=== PATIENT | female | born 1940 | race Caucasian/White ===

== ENCOUNTER 2016-05-16 14:45 | Inpatient (IN) | payer MEDICARE, MEDICAID ==
[~2016-05-16] VITALS: Ht 162.6 cm; Wt 75.0 kg
[~2016-05-16 14:45] MED LIST: CARV6.25 PO; CLOP75 PO; FURO1TAB93 PO; KLOR20TA6 PO; LEVO.125 PO; LORT5TAB PO; PRIN10TA PO; PROT40TA PO
[2016-05-16 14:48] VITALS: BP 150/68; PULSE 74; RESP 16; TEMP 98.6; O2SAT 98
[2016-05-16 14:52] VITALS: BP 150/68; PULSE 73; RESP 14; O2SAT 98
[2016-05-16] MEDS ORDERED: CARV6.252 PO (14:56)
--- NOTE | 2016-05-16 14:56 | PD ---
HPI Chief Complaint: Bleeding Time Seen by Provider: 14:56 Travel History International Travel<30 days: No Contact w/Intl Traveler<30days: No Traveled to known affect area: No History of Present Illness HPI 75-year-old female came to the emergency room brought in by EMS with history of upper and lower GI bleeding. Patient says that this has been going on for past 3 days. She is filling up the toilet bowl with bright red blood and blood clots. She also has been having nosebleeds. Patient has had these symptoms in the past. She is from [place], [place]. Her recently and she started drinking alcohol again. Patient used to be a chronic alcoholic and then stopped drinking for 10 months but started again recently. She drank a liter and a half of Vodka over the past couple days. She is complaining of mid abdominal pain. Today she got scared and called 911 since the bleeding wouldn' t stop. She was awake with GCS of 15 en route. Blood pressure was stable. Patient seems anxious and in moderate distress. No obvious bleeding currently. She appears intoxicate. [facility] Past Medical History Narrative Medical List of her past medical history is reviewed from the nursing note. Arthritis: No Asthma: No Autoimmune Disease: No Blood Disorders: No Anxiety: Yes Depression: No Heart Rhythm Problems: No Cancer: Yes (ABN PAP) Cardiovascular Problems: Yes (5 STENTS) High Cholesterol: Yes Chemotherapy: No Chest Pain: Yes Congestive Heart Failure: No COPD: No Cerebrovascular Accident: No Diabetes: No Diminished Hearing: No Endocrine: No Gastrointestinal Disorders: No GERD: Yes Glaucoma: No Genitourinary: No Headaches: Yes Hepatitis: No Hiatal Hernia: No Heparin Induced Thrombocytopen: No Hypertension: Yes Immune Disorder: No Kidney Stones: No Musculoskeletal: Yes (FACIAL BONES BROKEN) Neurologic: No Psychiatric: No Reproductive: No Respiratory: No Migraines: No Myocardial Infarction: Yes Radiation Therapy: No Renal Failure: No Seizures: No Sickle Cell Disease: No Sleep Apnea: No Thyroid Disease: Yes (HYPOTHYROID) Ulcer: Yes Influenza Vaccination: Yes ?: Not Menopausal: Yes Past Surgical History AICD: No Appendectomy: Yes Arteriovenous Shunt: No Body Medical Devices: STENTS Cardiac Surgery: Yes (2001, 2002, 2004, 1999 STENTS IN [facility] LISTED 4 STENTS) Cholecystectomy: Yes Coronary Stent: Yes (X 5) Genitourinary Surgery: Yes (GALLBLADDER REMOVED 1958) Insulin Pump: No Joint Replacement: No Pacemaker: No Other Surgery: No Social History Alcohol Use: Yes (STATES DRANK 1 PINT LIQUOR TONIGHT) Tobacco Use: Yes (3 CIGS/DAY) Substance Use: No Allergies-Medications (Allergen,Severity, Reaction): Coded Allergies: No Known Allergies (Verified , 05/16/16) Comments List of her allergies reviewed from the nursing note. Reported Meds & Prescriptions Reported Meds & Active Scripts Active Reported Omeprazole 40 Mg Cap 40 Mg PO DAILY Potassium Chloride ER (Potassium Chloride) 20 Meq Tab 20 Meq PO DAILY Lasix (Furosemide) 40 Mg Tab 40 Mg PO DAILY Isosorbide Mononitrate ER (Isosorbide Mononitrate) 60 Mg Tab 60 Mg PO DAILY Lisinopril 20 Mg Tab 20 Mg PO BID Carvedilol 6.25 Mg Tab 6.25 Mg PO BID Narrative Medication List of her home medications reviewed from the nursing note. Review of Systems Except as stated in HPI: all other systems reviewed are Neg Physical Exam Narrative GENERAL: Awake, alert, elderly, anxious, moderate distress, intoxicated SKIN: Warm and dry. Mulliple ecchymoses HEAD: Atraumatic. Normocephalic. EYES: Pupils equal and round. No scleral icterus. No injection or drainage. ENT: No nasal bleeding or discharge. Mucous membranes pink and moist. Dried blood in her right nostril. NECK: Trachea midline. No JVD. CARDIOVASCULAR: Regular rate and rhythm. No murmur appreciated. RESPIRATORY: No accessory muscle use. Clear to auscultation. Breath sounds equal bilaterally. GASTROINTESTINAL: Abdomen soft, non-tender, nondistended. Hepatic and splenic margins not palpable. MUSCULOSKELETAL: No obvious deformities. No clubbing. No cyanosis. No edema. NEUROLOGICAL: Awake and alert. No obvious cranial nerve deficits. Motor grossly within normal limits. Normal speech. PSYCHIATRIC: Anxious and depressed; insight and judgment normal. Data Data Last Documented VS Vital Signs Date Time Temp Pulse Resp B/P Pulse Ox O2 Delivery O2 Flow Rate FiO2 05/16/16 14:52 73 14 150/68 98 Room Air 05/16/16 14:48 98.6 Orders Complete Blood Count With Diff (05/16/16 15:03) Comprehensive Metabolic Panel (05/16/16 15:03) Lipase (05/16/16 15:03) Prothrombin Time / Inr (Pt) (05/16/16 15:03) Act Partial Throm Time (Ptt) (05/16/16 15:03) Alcohol (Ethanol) (05/16/16 15:03) Urinalysis - C+S If Indicated (05/16/16 15:03) Type And Screen (05/16/16 15:03) Ecg Monitoring (05/16/16 15:03) Iv Access Insert/Monitor (05/16/16 15:03) Oximetry (05/16/16 15:03) Sodium Chlor 0.9% 1000 Ml Inj (Ns 1000 M (05/16/16 15:03) Sodium Chloride 0.9% Flush (Ns Flush) (05/16/16 15:15) Pantoprazole Inj (Protonix Inj) (05/16/16 15:15) Pantoprazole Inj (Protonix Inj) (05/16/16 15:15) Consult Gastroenterology (05/16/16 ) Morphine Inj (Morphine Inj) (05/16/16 15:15) Ondansetron Inj (Zofran Inj) (05/16/16 15:15) Blood Product Administration .UPON TRANSFUSION (05/16/16 15:36) Sodium Chlor 0.9% 250 Ml Inj (Ns 250 Ml (05/16/16 15:45) Octreotide Inj (Sandostatin Inj) (05/16/16 15:45) Octreotide Inj (Sandostatin Inj) (05/16/16 17:45) Lorazepam Inj (Ativan Inj) (05/16/16 15:45) Potassium Chlor 10 Meq Premix (Kcl 10 Me (05/16/16 16:00) Potassium Chloride Eff (K-Lyte Cl Eff) (05/16/16 16:00) Ct Abd/Pel W/O Iv Contrast (05/16/16 ) (Hub Use Only)Inp Phy Cons/Ref (05/16/16 ) Admit Order (Ed Use Only) (05/16/16 16:54) Labs Laboratory Tests Test 05/16/16 05/16/16 15:10 16:40 White Blood Count 4.9 TH/MM3 Red Blood Count 3.01 MIL/MM3 Hemoglobin 9.5 GM/DL Hematocrit 28.2 % Mean Corpuscular Volume 93.7 FL Mean Corpuscular Hemoglobin 31.8 PG Mean Corpuscular Hemoglobin 33.9 % Concent Red Cell Distribution Width 17.8 % Platelet Count 71 TH/MM3 Mean Platelet Volume 10.0 FL Neutrophils (%) (Auto) 50.6 % Lymphocytes (%) (Auto) 38.5 % Monocytes (%) (Auto) 8.7 % Eosinophils (%) (Auto) 1.5 % Basophils (%) (Auto) 0.7 % Neutrophils # (Auto) 2.5 TH/MM3 Lymphocytes # (Auto) 1.9 TH/MM3 Monocytes # (Auto) 0.4 TH/MM3 Eosinophils # (Auto) 0.1 TH/MM3 Basophils # (Auto) 0.0 TH/MM3 CBC Comment AUTO DIFF Differential Comment AUTO DIFF CONFIRMED Platelet Estimate LOW Platelet Morphology Comment NORMAL Prothrombin Time 11.9 SEC Prothromb Time International 1.1 RATIO Ratio Activated Partial 27.8 SEC Thromboplast Time Sodium Level 131 MEQ/L Potassium Level 2.9 MEQ/L Chloride Level 100 MEQ/L Carbon Dioxide Level 17.9 MEQ/L Anion Gap 13 MEQ/L Blood Urea Nitrogen 15 MG/DL Creatinine 1.65 MG/DL Estimat Glomerular Filtration 30 ML/MIN Rate Random Glucose 109 MG/DL Calcium Level 8.6 MG/DL Total Bilirubin 0.5 MG/DL Aspartate Amino Transf 108 U/L (AST/SGOT) Alanine Aminotransferase 52 U/L (ALT/SGPT) Alkaline Phosphatase 107 U/L Total Protein 7.4 GM/DL Albumin 3.2 GM/DL Lipase 489 U/L Ethyl Alcohol Level 203 MG/DL Blood Type O POSITIVE Antibody Screen NEGATIVE Blood Bank Comment Urine Color YELLOW Urine Turbidity CLEAR Urine pH 5.0 Urine Specific Warren 1.006 Urine Protein NEG mg/dL Urine Glucose (UA) NEG mg/dL Urine Ketones NEG mg/dL Urine Occult Blood NEG Urine Nitrite NEG Urine Bilirubin NEG Urine Urobilinogen LESS THAN 2.0 MG/DL Urine Leukocyte Esterase NEG Urine RBC LESS THAN 1 /hpf Urine Bacteria RARE /hpf Urine Hyaline Casts 1 /lpf Urine Mucus FEW /lpf Microscopic Urinalysis Comment CULT NOT INDICATED MDM Medical Decision Making Medical Screen Exam Complete: Yes Emergency Medical Condition: Yes Medical Record Reviewed: Yes Differential Diagnosis Upper GI bleed, lower GI bleed, epistaxis, Variceal bleed, peptic ulcer disease , AAA Narrative Course 4:17 PM blood test results are back. Patient has some anemia. Patient's platelet count is 71. Patient was seen by a GI specialist Dr. Malone and he recommended Protonix and Sandostatin drip. Patient will need to be admitted to the ICU due to the pottential of massive upper GI bleed. I suspect variceal bleeding given her alcohol history. He will consult on the patient. Patient's potassium was low which I have ordered replacement. Waiting for a CT abdomen and pelvis to be done and resulted. Awaiting for the glass products inspector to call back for admission. The nurse that me know the patient was getting shaky and probably going into alcohol withdrawal. I ordered 1 mg of IV Ativan. I have ordered a CT scan of her abdomen which is pending. Critical Care Narrative Aggregate critical care time was 60 minutes. Time to perform other separately billable procedures was not included in the critical care time. My time did not include minutes spent treating any other patients simultaneously or on activities that did not directly contribute to the patient's treatment. The services I provided to this patient were to treat and/or prevent clinically significant deterioration that could result in: GI bleed, possible variceal bleed, hyperkalemia,, thrombocytopenia ,chronic alcoholic, Protonix drip, Sandostatin drip I provided critical care services requiring my management, as noted below: Chart data review, documentation time, medication orders and management, vital sign assessments/reviewing monitor data, ordering and reviewing lab tests, ordering and interpreting/reviewing x-rays and diagnostic studies, care of the patient and discussion of the patient with the admitting physicians. Procedures EKG Prior to Arrival: No Physician Communication Physician Communication Dr. Malone Diagnosis Primary Impression: GI bleed Qualified Code: K29.21 - Gastrointestinal hemorrhage associated with alcoholic gastritis Additional Impressions: Chronic alcohol abuse Thrombocytopenia Hypokalemia Renal insufficiency Admitting Information Admitting Physician Requests: eSda Darling MD May 16, 2016 14:56
[2016-05-16] MEDS ORDERED: SODIUM CHLOR 0.9% 1000 ML INJ 1,000 ML IV SCH (15:03)
[2016-05-16] MEDS ORDERED: MORPHINE SULFATE 4 MG/ML INJ IV PUSH ONE (15:15)
[2016-05-16] MEDS ORDERED: PANTOPRAZOLE INJ 80 MG in SODIUM CHLORIDE 0.9% INJ 35 ML IV ONE (15:15)
[2016-05-16] MEDS ORDERED: SODIUM CHLORIDE 0.9% FLUSH 5 ML FLUSH IVF PRN (15:15)
[2016-05-16] MEDS ORDERED: ONDANSETRON HCL 4 MG/2 ML VIAL IV PUSH ONE (15:15)
[2016-05-16 15:26] LABS: AUTOMATED NEUTROPHIL # 2.5 TH/MM3 (1.8-7.7); BASOPHIL % 0.7 % (0.0-2.0); EOSINOPHIL # 0.1 TH/MM3 (0-0.4); EOSINOPHIL % 1.5 % (0.0-4.0); HEMATOCRIT 28.2 % (35.0-46.0); LYMPH % 38.5 % (9.0-44.0); LYMPHOCYTE # 1.9 TH/MM3 (1.0-4.8); MEAN CELL VOLUME 93.7 FL (80.0-100.0); MEAN CORPUSCULAR HEMOGLOBIN 31.8 PG (27.0-34.0); MEAN CORPUSCULAR HGB CONC 33.9 % (32.0-36.0); MONO % 8.7 % (0.0-8.0); NEUT % 50.6 % (16.0-70.0); PLATELET COUNT 71 TH/MM3 (150-450); RED BLOOD COUNT 3.01 MIL/MM3 (4.00-5.30); RED CELL DISTRIBUTION WIDTH 17.8 % (11.6-17.2); WHITE BLOOD COUNT 4.9 TH/MM3 (4.0-11.0)
[2016-05-16 15:37] LABS: APTT (PATIENT) 27.8 SEC (24.3-30.1); INTERNATIONAL NORMALIZED RATIO 1.1 RATIO; PROTHROMBIN TIME - PATIENT 11.9 SEC (9.8-11.6)
[2016-05-16] MEDS ORDERED: SODIUM CHLOR 0.9% 250 ML INJ 250 ML IV ONE (15:45)
[2016-05-16] MEDS ORDERED: OCTREOTIDE INJ 50 MCG/ML AMP IV ONE (15:45)
[2016-05-16] MEDS ORDERED: LORazepam 2 MG/ML VIAL IV PUSH ONE (15:45)
[2016-05-16 15:51] LABS: ALKALINE PHOSPHATASE 107 U/L (45-117); ALT (GPT) 52 U/L (10-53); ANION GAP 13 MEQ/L (5-15); AST (GOT) 108 U/L (15-37); BICARBONATE 17.9 MEQ/L (21.0-32.0); BLOOD UREA NITROGEN 15 MG/DL (7-18); CHLORIDE 100 MEQ/L (98-107); GLOMERULAR FILTRATION RATE 30 ML/MIN (>89); SODIUM (NA) 131 MEQ/L (136-145); TOTAL BILIRUBIN ADULT 0.5 MG/DL (0.2-1.0)
[2016-05-16 15:56] LABS: POTASSIUM 2.9 MEQ/L (3.5-5.1)
[2016-05-16 16:00] LABS: HEMO FLAGS AUTO DIFF
[2016-05-16] MEDS ORDERED: POTASSIUM CHLORIDE 25 MEQ EFFERVESCENT TAB PO ONE (16:00)
[2016-05-16 16:01] LABS: PLATELET ESTIMATE SMEAR LOW (NORMAL); PLATELET MORPHOLOGY NORMAL (NORMAL); SCAN/DIFF AUTO DIFF CONFIRMED
[2016-05-16] MEDS: PANTOPRAZOLE INJ 80 MG in SODIUM CHLORIDE 0.9% INJ 100 ML IV SCH ×2 (16:06→22:31)
--- NOTE | 2016-05-16 16:24 | PD.CONS ---
HPI History of Present Illness This is a 75 year old who came to the ER for evaluation of GI bleeding. She has a long hx of binge drinking and states that she has been drinking more than usual since she lost her 2 months ago. After his , she went to visit friends in [place] and was hospitalized for severe epistaxis, thrombocytopenia , and anemia. She required 3 blood transfusions while she was there. She had nasal packing for her epistaxis, but still had bleeding, and therefore had to have some treatment by ENT to stop the bleeding. She has continued to have some oozing from her nose while she sleeps. She returned back home about 2 weeks ago. She reports that she started passing black tarry stool about 2 days ago. She then started passing some dark red blood and blood clots mixed in her stool yesterday. She does have a hx of fissures and initially thought the bleeding was coming from that, but when she started having large amounts of rectal bleeding filling the toilet with blood clots, she became more concerned. She reports that she is also having bleeding from her nose and from the side of her mouth- only when she sleeps. She did have some hematemesis yesterday- with dark red blood. She complains of a dull ache in her RUQ. This is intermittently without aggravating or alleviating factors. She denies any hx of liver cirrhosis, but states she does have some damage from drinking and was diagnosed with esophageal varices in the past. She last had an EGD/Colonoscopy a year in [place] and she was told that she had varices at that time. Plavix is on her medication list, but states she quit taking this 2 years ago. She takes 4 excedrin a day for generalized pain. (Vicky Rodriguez) PFSH Past Medical History Liver disease Esophageal varices Recent severe epistaxis requiring tx Anemia requiring recent transfusion HTN CAD Hypothyroidism ETOH abuse Past Surgical History EGD/Colonoscopy Recent tx for epistaxis Cholecystectomy Appendectomy (Vicky Rodriguez) Coded Allergies: No Known Allergies (Verified , 05/16/16) Medications Allergies Coded Allergies Type Severity Reaction Last Updated Verified No Known Allergies 05/16/16 Yes Active Scripts Medications Dose Route/Sig Days Date Category Carvedilol 6.25 Mg Tab 6.25 Mg PO BID 05/16/16 Reported Lortab 5/500 (Acetaminophen/Hydrocodone Bitart) 5 Mg/500 Mg Tab 1-2 Tab PO Q6HPRN 03/11/09 Rx Coreg 6.25 mg (Carvedilol) 6.25 Mg Tab 6.25 Mg PO BID 03/11/09 Reported K-Dur (Potassium Chloride) 20 Meq Tabcr 20 Meq PO DAILY 03/11/09 Reported Synthroid (Levothyroxine Sodium) 125 Mcg Tab 125 Mcg PO DAILY 03/11/09 Reported Prinivil (Lisinopril) 10 Mg Tab 10 Mg PO DAILY 03/11/09 Reported Lasix (Furosemide) 40 Mg Tab 40 Mg PO DAILY 03/11/09 Reported Protonix (Pantoprazole Sodium) 40 Mg Tabdr 40 Mg PO DAILY 03/11/09 Reported Family History "Cancer has taken my whole family" Mother from "female cancer" Sister from "female cancer" Another sister from kidney cancer Brother from prostate cancer Another brother from [place] Social History Binge drinker, unable to quantify She smokes 3 cigarettes a day (Vicky Rodriguez) Review of Systems Constitutional: COMPLAINS OF: Fatigue, DENIES: Weight loss, Change in appetite Respiratory: DENIES: Cough, Shortness of breath Cardiovascular: DENIES: Chest pain Gastrointestinal: COMPLAINS OF: Abdominal pain, Black stools, Bloody stools, Nausea, Vomiting, Hematemesis, DENIES: Constipation, Diarrhea, Swelling of Abdomen Musculoskeletal: DENIES: Joint pain Hematologic/lymphatic: COMPLAINS OF: Bruising Neurologic: DENIES: Headache Psychiatric: COMPLAINS OF: Anxiety, Depression, DENIES: Confusion ROS nose bleeds (Vicky Rodriguez) GI Exam Vitals I&O Vital Signs Date Time Temp Pulse Resp B/P Pulse Ox O2 Delivery O2 Flow Rate FiO2 05/16/16 14:52 73 14 150/68 98 Room Air 05/16/16 14:48 98.6 74 16 150/68 98 Laboratory Test 05/16/16 15:10 White Blood Count 4.9 TH/MM3 Red Blood Count 3.01 MIL/MM3 Hemoglobin 9.5 GM/DL Hematocrit 28.2 % Mean Corpuscular Volume 93.7 FL Mean Corpuscular Hemoglobin 31.8 PG Mean Corpuscular Hemoglobin 33.9 % Concent Red Cell Distribution Width 17.8 % Platelet Count 71 TH/MM3 Mean Platelet Volume 10.0 FL Neutrophils (%) (Auto) 50.6 % Lymphocytes (%) (Auto) 38.5 % Monocytes (%) (Auto) 8.7 % Eosinophils (%) (Auto) 1.5 % Basophils (%) (Auto) 0.7 % Neutrophils # (Auto) 2.5 TH/MM3 Lymphocytes # (Auto) 1.9 TH/MM3 Monocytes # (Auto) 0.4 TH/MM3 Eosinophils # (Auto) 0.1 TH/MM3 Basophils # (Auto) 0.0 TH/MM3 CBC Comment AUTO DIFF Differential Comment AUTO DIFF CONFIRMED Platelet Estimate LOW Platelet Morphology Comment NORMAL Prothrombin Time 11.9 SEC Prothromb Time International 1.1 RATIO Ratio Activated Partial 27.8 SEC Thromboplast Time Sodium Level 131 MEQ/L Potassium Level 2.9 MEQ/L Chloride Level 100 MEQ/L Carbon Dioxide Level 17.9 MEQ/L Anion Gap 13 MEQ/L Blood Urea Nitrogen 15 MG/DL Creatinine 1.65 MG/DL Estimat Glomerular Filtration 30 ML/MIN Rate Random Glucose 109 MG/DL Calcium Level 8.6 MG/DL Total Bilirubin 0.5 MG/DL Aspartate Amino Transf 108 U/L (AST/SGOT) Alanine Aminotransferase 52 U/L (ALT/SGPT) Alkaline Phosphatase 107 U/L Total Protein 7.4 GM/DL Albumin 3.2 GM/DL Lipase 489 U/L Ethyl Alcohol Level 203 MG/DL Physical Examination HEENT: Normocephalic; atraumatic; no jaundice. Throat is clear. NECK: Neck is supple, no JVD, no lymphadenopathy. CHEST: CTA CARDIAC: RRR ABDOMEN: Soft, nondistended, mild RUQ tenderness; hepatosplenomegaly; bowel sounds are present in all four quadrants. EXTREMITIES: No clubbing, cyanosis, or edema. SKIN: Normal; no rash; no jaundice. PROSTHETIST: No focal deficits; alert and oriented times three. (Vicky Rodriguez) Assessment and Plan Plan ASSESSMENT: - GIB, Hematemesis yesterday- passing both dark and red blood with clots in her stool. Of note, does have recent hx of severe epistaxis requiring hospitalization, tx, and transfusions about a month ago. Also with hx of esophageal varices and recent binge drinking. Pt is not very forthcoming with the amount and is unable to quantify. Per nurse, she has not had any active hematemesis/nosebleeds since being here, but the ER physician did get maroon bloody stool on rectal exam. (+) Excedrin use. Will schedule for egd in am. - Anemia, acute blood loss. 9.5/28.2. - Thrombocytopenia. 71,000. - Elevated LFTs. Pt reports hx of liver disease and denies cirrhosis, although she was told in the past that she had varices. - Recent hospitalization for severe epistaxis requiring multiple transfusions and tx to stop the bleeding (no response to packing), ENT had to go in to control bleeding. pt reports that she has continued to have nose bleeds since that time - ETOH abuse. States she has a long hx of ETOH abuse, intermittently. Recently been binge drinking since the of her 2 months ago. - CAD, HTN, Hypothyroidism per primary PLAN: - Plan for EGD with possible band ligation - Obtain consents - Clear liquids - NPO - Protonix Gtt - Octreotide Gtt - Monitor HH - Transfuse as necessary - Supportive care - Further recommendations to follow based on results of above - Pt seen and examined by Dr. Malone and myself and this note is written on his behalf (Vicky Rodriguez) Physician Comments Seen and examined With Ms. Jennifer LEE, transfuse as needed. IV protonix/ octreotide. Type and screen for 4 units PRBC. IMC monitoring. NG to L.I.S. EGD/ banding tonite vs. tomorrow morning depending upon clinical course. Thank you ( Yared Malone MD) Vicky Rodriguez May 16, 2016 16:24 Yared Malone MD May 16, 2016 18:32
[2016-05-16 17:01] LABS: BACTERIA, URINE RARE /hpf; BLOOD, URINE NEG (NEG); COMMENT (UR) CULT NOT INDICATED; CULTURE IF INDICATED CULT NOT INDICATED; GLUCOSE,URINE NEG (NEG); HYALINE CAST, URINE 1 /lpf (RARE); KETONE, URINE NEG (NEG); MUCUS URINE FEW /lpf (OCC); NITRITE,URINE NEG (NEG); URINE COLOR YELLOW (YELLW/STRAW)
--- NOTE | 2016-05-16 17:28 | HHI.HP ---
HPI Service Critical Care Medicine Primary Care Physician Unknown Admission Diagnosis GI bleed, thrombocytopenia, hypokalemia, chronic alcoholic Diagnosis: Travel History International Travel<30 Days: No Contact w/Intl Traveler <30 Da: No Traveled to Known Affected Are: No History of Present Illness 75 year old female with long-standing history of binge drinking , who presents today for evaluation of GI bleed. Recently she went to visit friends in [place] and was hospitalized for severe epistaxis, thrombocytopenia, and anemia. She required 3 blood transfusions while she was there. She has returned back home about 2 weeks ago. She started passing black tarry stool about 2 days ago. She then started passing some dark red blood and blood clots mixed in her stool yesterday. She did have some hematemesis yesterday- with dark red blood. She complains of a dull ache in her RUQ. Plavix is on her medication list, but states she quit taking this 2 years ago. She takes 4 Excedrin daily for generalized pain. Review of Systems Constitutional: COMPLAINS OF: Dizziness, DENIES: Diaphoretic episodes, Fatigue , Fever, Weight gain, Weight loss, Chills, Change in appetite, Night Sweats Endocrine: DENIES: Abnorml menstrual pattern, Heat/cold intolerance, Polydipsia , Polyuria, Polyphagia Eyes: DENIES: Blurred vision, Diplopia, Eye inflammation, Eye pain, Vision loss , Photosensitivity, Double Vision Ears, nose, mouth, throat: DENIES: Tinnitus, Hearing loss, Vertigo, Nasal discharge, Oral lesions, Throat pain, Hoarseness, Ear Pain, Running Nose, Epistaxis, Sinus Pain, Toothache, Odynophagia Respiratory: DENIES: Apneas, Cough, Snoring, Wheezing, Hemoptysis, Sputum production, Shortness of breath Cardiovascular: DENIES: Chest pain, Palpitations, Syncope, Dyspnea on Exertion , PND, Lower Extremity Edema, Orthopnea, Claudication Gastrointestinal: COMPLAINS OF: Abdominal pain, Black stools, Bloody stools, DENIES: Constipation, Diarrhea, Nausea, Vomiting, Difficulty Swallowing, Anorexia Genitourinary: DENIES: Abnormal vaginal bleeding, Dysmenorrhea, Dyspareunia, Sexual dysfunction, Urinary frequency, Urinary incontinence, Urgency, Hematuria , Dysuria, Nocturia, Vaginal discharge Musculoskeletal: DENIES: Joint pain, Muscle aches, Stiffness, Joint Swelling, Back pain, Neck pain Integumentary: DENIES: Abnormal pigmentation, Pruritus, Rash, Nail changes, Breast masses, Breast skin changes, Nipple discharge Hematologic/lymphatic: DENIES: Bruising, Lymphadenopathy Immunologic/allergic: DENIES: Eczema, Urticaria Neurologic: DENIES: Abnormal gait, Headache, Localized weakness, Paresthesias, Seizures, Speech Problems, Tremor, Poor Balance Psychiatric: DENIES: Anxiety, Confusion, Mood changes, Depression, Hallucinations, Agitation, Suicidal Ideation, Homicidal Ideation, Delusions Past Family Social History Allergies: Coded Allergies: No Known Allergies (Verified , 05/16/16) Past Medical History PFSH PFSH Past Medical History Liver disease Esophageal varices Recent severe epistaxis requiring tx Anemia requiring recent transfusion HTN CAD Hypothyroidism ETOH abuse Past Surgical History EGD colonoscopy Recent tx for epistaxis Cholecystectomy Appendectomy Reported Medications Reported Meds & Active Scripts Active Lortab 5/500 (Acetaminophen/Hydrocodone Bitart) 5 Mg/500 Mg Tab 1-2 Tab PO Q6HPRN Reported Carvedilol 6.25 Mg Tab 6.25 Mg PO BID K-Dur (Potassium Chloride) 20 Meq Tabcr 20 Meq PO DAILY Synthroid (Levothyroxine Sodium) 125 Mcg Tab 125 Mcg PO DAILY Plavix (Clopidogrel Bisulfate) 75 Mg Tab 75 Mg PO DAILY Prinivil (Lisinopril) 10 Mg Tab 10 Mg PO DAILY Lasix (Furosemide) 40 Mg Tab 40 Mg PO DAILY Protonix (Pantoprazole Sodium) 40 Mg Tabdr 40 Mg PO DAILY Active Ordered Medications Current Medications Medications (Trade) Dose Ordered Sig/Ebonie Route PRN Reason Start Time Stop Time Status Last Admin Dose Admin IV Flush 2 ml 2 ml UNSCH PRN IVF FLUSH AFTER USING IV ACCESS 05/16/16 15:15 Pantoprazole Sodium 80 mg/ Sodium Chloride 100 ml @ 10 mls/hr Q10H IV 05/16/16 15:15 05/16/16 16:06 Sodium Chloride 250 ml @ 15 mls/hr ONCE ONCE IV 05/16/16 15:45 05/17/16 08:24 Octreotide Acetate 500 mcg/ Sodium Chloride 500.0 ml @ 50 mls/hr Q10H IV 05/16/16 17:45 Potassium Chloride (KCl 10 Meq Premix Inj) 100 ml @ 100 mls/hr Q1H IV 05/16/16 16:00 05/16/16 18:59 Family History Noncontributory Social History Alcohol ABUSE Physical Exam Vital Signs Vital Signs Date Time Temp Pulse Resp B/P Pulse Ox O2 Delivery O2 Flow Rate FiO2 05/16/16 14:52 73 14 150/68 98 Room Air 05/16/16 14:48 98.6 74 16 150/68 98 Physical Exam GENERAL: Well-nourished, well-developed patient. SKIN: Warm and dry. HEAD: Normocephalic. EYES: No scleral icterus. No injection or drainage. NECK: Supple, trachea midline. No JVD or lymphadenopathy. CARDIOVASCULAR: Regular rate and rhythm without murmurs, gallops, or rubs. RESPIRATORY: Breath sounds equal bilaterally. No accessory muscle use. GASTROINTESTINAL: Abdomen soft, non-tender, nondistended. MUSCULOSKELETAL: No cyanosis, or edema. BACK: Nontender without obvious deformity. No CVA tenderness. Laboratory Laboratory Tests Test 05/16/16 05/16/16 15:10 16:40 White Blood Count 4.9 Red Blood Count 3.01 Hemoglobin 9.5 Hematocrit 28.2 Mean Corpuscular Volume 93.7 Mean Corpuscular Hemoglobin 31.8 Mean Corpuscular Hemoglobin 33.9 Concent Red Cell Distribution Width 17.8 Platelet Count 71 Mean Platelet Volume 10.0 Neutrophils (%) (Auto) 50.6 Lymphocytes (%) (Auto) 38.5 Monocytes (%) (Auto) 8.7 Eosinophils (%) (Auto) 1.5 Basophils (%) (Auto) 0.7 Neutrophils # (Auto) 2.5 Lymphocytes # (Auto) 1.9 Monocytes # (Auto) 0.4 Eosinophils # (Auto) 0.1 Basophils # (Auto) 0.0 CBC Comment AUTO DIFF Differential Comment AUTO DIFF CONFIRMED Platelet Estimate LOW Platelet Morphology Comment NORMAL Prothrombin Time 11.9 Prothromb Time International 1.1 Ratio Activated Partial 27.8 Thromboplast Time Sodium Level 131 Potassium Level 2.9 Chloride Level 100 Carbon Dioxide Level 17.9 Anion Gap 13 Blood Urea Nitrogen 15 Creatinine 1.65 Estimat Glomerular Filtration 30 Rate Random Glucose 109 Calcium Level 8.6 Total Bilirubin 0.5 Aspartate Amino Transf 108 (AST/SGOT) Alanine Aminotransferase 52 (ALT/SGPT) Alkaline Phosphatase 107 Total Protein 7.4 Albumin 3.2 Lipase 489 Ethyl Alcohol Level 203 Blood Type O POSITIVE Antibody Screen NEGATIVE Blood Bank Comment Urine Color YELLOW Urine Turbidity CLEAR Urine pH 5.0 Urine Specific [place] 1.006 Urine Protein NEG Urine Glucose (UA) NEG Urine Ketones NEG Urine Occult Blood NEG Urine Nitrite NEG Urine Bilirubin NEG Urine Urobilinogen LESS THAN 2.0 Urine Leukocyte Esterase NEG Urine RBC LESS THAN 1 Urine Bacteria RARE Urine Hyaline Casts 1 Urine Mucus FEW Microscopic Urinalysis Comment CULT NOT INDICATED Result Diagram: 05/16/16 1510 05/16/16 1510 Assessment and Plan Problem List: (1) Thrombocytopenia ICD Code: D69.6 Status: Acute (2) GI bleed ICD Code: K92.2 Status: Acute (3) Chronic alcohol abuse ICD Code: F10.10 Status: Acute Assessment and Plan GI bleed - Possible portal hypertension - Octreotide drip - Protonix drip - GI consult appreciated Cortical dependence - CIWA protocol - Counseling provided Hypokalemia - I iv fluids with potassium replacement Acute renal failure - Due to volume loss - IV hydration - Monitor I's and O DVT GI prophylaxis - Teds SCDs Protonix drip Critical Care: The total critical care time was 35 minutes. Time to perform other separately billable procedures was not included in the critical care time. Problem Qualifiers (1) GI bleed: Qualified Code: K29.21 - Gastrointestinal hemorrhage associated with alcoholic gastritis Adan Rothman MD May 16, 2016 17:28
[2016-05-16] MEDS: POTASSIUM CHLOR 10 MEQ PREMIX 100 ML IV SCH ×3 (17:30→22:31)
[2016-05-16] MEDS ORDERED: METOCLOPRAMIDE HCL 10 MG/2 ML VIAL IV PRN (17:30)
[2016-05-16] MEDS ORDERED: RESP: ALBUTEROL 2.5 MG/IPRATROPIUM 0.5 MG NEB (PRN) INH (17:30)
[2016-05-16] MEDS ORDERED: ACETAMINOPHEN 325 MG TAB PO PRN (17:30)
[2016-05-16] MEDS ORDERED: MISCELLANEOUS NURSING INFORMATION XX SCH (17:30)
[2016-05-16] MEDS ORDERED: SODIUM CHLORIDE 0.9% FLUSH 5 ML FLUSH IV FLUSH PRN (17:30)
[2016-05-16] MEDS ORDERED: CHLORHEXIDINE GLUCONATE 2 % 1 PACK (2 CLOTHS) TOP PRN (17:30)
--- NOTE | 2016-05-16 17:39 | RADRPT ---
EXAM DATE/TIME: 05/16/2016 17:02 [facility] COMPARISON: No previous studies available for comparison. INDICATIONS : Rectal bleeding and nose bleeds for the past three days,eppigastric pain. ORAL CONTRAST: No oral contrast ingested. RADIATION DOSE: 20.38 CTDIvol (mGy) MEDICAL HISTORY : Cardiovascular disease. Hypertension. Ulcers. SURGICAL HISTORY : Appendectomy. Cholecystectomy.Coronary artery stent. ENCOUNTER: Initial ACUITY: 3 days PAIN SCALE: 8/10 LOCATION: upper quadrant Abdomen TECHNIQUE: Volumetric scanning of the abdomen and pelvis was performed. Using automated exposure control and ad justment of the mA and/or kV according to patient size, radiation dose was kept as low as reasonably achievable to obtain optimal diagnostic quality images. FINDINGS: Examination of the lung bases demonstrates no abnormality. No pleural fluid is identified. No pulmona ry nodules are present. There is a nodular contour to the liver which may reflect cirrhosis. The sple en is normal in size and free of focal defects. The gallbladder is surgically absent. There are findi ngs of acute pancreatitis with extensive fluid and edema involving the anterior pararenal space maxim al involving the pancreatic head no stones are identified. Varices are present in the left upper quad rant. A small hiatal hernia is present. The adrenal glands and kidneys appear normal bilaterally. No hydronephrosis or mass lesions are identified. Ascites is present in the right paracolic gutter. Ther e is small bowel dilatation characteristic of ileus. Examination of the pelvis demonstrates no evidence of free fluid or pelvic mass. No abnormally enlarg ed inguinal or retroperitoneal lymph nodes are present. The bladder is unremarkable. A Holt catheter is present within the bladder which does not allow for evaluation. CONCLUSION: 1. Findings of acute pancreatitis without ductal dilatation. 2. Mild ascites 3. Cirrhosis and portal hypertension Juma Giraldo MD on May 16, 2016 at 17:29 Board Certified Radiologist. This report was verified electronically.
[2016-05-16 17:51] VITALS: BP 114/54; PULSE 76; RESP 16; O2SAT 99
[2016-05-16] MEDS ORDERED: FURO1TAB60 PO (17:58)
[2016-05-16] MEDS ORDERED: POTA-163 PO (17:58)
[2016-05-16] MEDS ORDERED: OMEP40CA2 PO (17:58)
[2016-05-16] MEDS ORDERED: ISOS60TA PO (17:58)
[2016-05-16] MEDS ORDERED: LISI-515 PO (17:58)
[2016-05-16] MEDS: OCTREOTIDE INJ 500 MCG in SODIUM CHLORID 0.9% 500 ML INJ 499.5 ML IV SCH (18:02)
[2016-05-16] MEDS ORDERED: LORazepam 2 MG/ML VIAL IV PUSH PRN ×4 (18:15)
[2016-05-16] MEDS ORDERED: FLUMAZENIL 0.5 MG/5 ML VIAL IV PUSH PRN (18:15)
[2016-05-16] MEDS ORDERED: LORazepam 2 MG TAB PO PRN (18:15)
[2016-05-16 19:49] VITALS: BP 156/72; PULSE 77; RESP 16; TEMP 97.8; O2SAT 100
[2016-05-16 20:00] VITALS: BP 137/62; PULSE 75; RESP 13; TEMP 97.8; O2SAT 100
[2016-05-16] MEDS: SODIUM CHLORIDE 0.9% FLUSH 5 ML FLUSH IV FLUSH SCH (20:12)
[2016-05-16] MEDS: MORPHINE SULFATE 4 MG/ML INJ IV PRN (20:13)
[2016-05-16 21:51] LABS: HEMATOCRIT 30.6 % (35.0-46.0)
[2016-05-16 22:03] LABS: REVIEW FLAG FINAL
[2016-05-16] MEDS: NS + KCL 20 MEQ INJ 1,000 ML IV SCH (22:31)
[2016-05-16] MEDS: ZOLPIDEM TARTRATE 5 MG TAB PO PRN (22:31)
[2016-05-17] VITALS (9 sets, daily range): BP systolic 112–126; BP diastolic 56–64; PULSE 59–72; RESP 18–28; TEMP 97.8–98.5; O2SAT 93–97
[2016-05-17] MEDS: OCTREOTIDE INJ 500 MCG in SODIUM CHLORID 0.9% 500 ML INJ 499.5 ML IV SCH ×2 (00:45→16:42)
[2016-05-17] MEDS: NS + KCL 20 MEQ INJ 1,000 ML IV SCH ×2 (03:52→16:42)
[2016-05-17] MEDS: MORPHINE SULFATE 4 MG/ML INJ IV PRN ×4 (03:52→21:23)
[2016-05-17] MEDS: CHLORHEXIDINE GLUCONATE 2 % 1 PACK (2 CLOTHS) TOP SCH (03:52)
[2016-05-17 04:42] LABS: INTERNATIONAL NORMALIZED RATIO 1.1 RATIO
[2016-05-17 04:52] LABS: BASOPHIL % 0.3 % (0.0-2.0); EOSINOPHIL # 0.1 TH/MM3 (0-0.4); EOSINOPHIL % 2.5 % (0.0-4.0); HEMATOCRIT 29.8 % (35.0-46.0); LYMPH % 23.6 % (9.0-44.0); MEAN CELL VOLUME 95.4 FL (80.0-100.0); MEAN CORPUSCULAR HEMOGLOBIN 32.2 PG (27.0-34.0); MEAN CORPUSCULAR HGB CONC 33.8 % (32.0-36.0); MONO % 6.7 % (0.0-8.0); NEUT % 66.9 % (16.0-70.0); PLATELET COUNT 74 TH/MM3 (150-450); RED BLOOD COUNT 3.12 MIL/MM3 (4.00-5.30); RED CELL DISTRIBUTION WIDTH 18.2 % (11.6-17.2); WHITE BLOOD COUNT 4.4 TH/MM3 (4.0-11.0)
[2016-05-17 05:35] LABS: ALKALINE PHOSPHATASE 104 U/L (45-117); ALT (GPT) 52 U/L (10-53); ANION GAP 10 MEQ/L (5-15); AST (GOT) 127 U/L (15-37); BLOOD UREA NITROGEN 12 MG/DL (7-18); CHLORIDE 109 MEQ/L (98-107); GLOMERULAR FILTRATION RATE 42 ML/MIN (>89); MAGNESIUM 1.7 MG/DL (1.5-2.5); POTASSIUM 4.8 MEQ/L (3.5-5.1); SODIUM (NA) 137 MEQ/L (136-145); TOTAL BILIRUBIN ADULT 0.6 MG/DL (0.2-1.0)
[2016-05-17 06:47] LABS: HEMO FLAGS AUTO DIFF
[2016-05-17 06:48] LABS: PLATELET ESTIMATE SMEAR LOW (NORMAL); PLATELET MORPHOLOGY NORMAL (NORMAL); SCAN/DIFF AUTO DIFF CONFIRMED
[2016-05-17] MEDS: SODIUM CHLORIDE 0.9% FLUSH 5 ML FLUSH IV FLUSH SCH ×2 (09:00→21:22)
[2016-05-17 09:51] LABS: HEMATOCRIT 30.3 % (35.0-46.0); REVIEW FLAG FINAL
[2016-05-17] MEDS: PANTOPRAZOLE INJ 80 MG in SODIUM CHLORIDE 0.9% INJ 100 ML IV SCH ×2 (11:15→21:23)
[2016-05-17] MEDS ORDERED: PROPOFOL 200 MG/20 ML AMP IV ONE (12:36)
[2016-05-17] MEDS ORDERED: fentaNYL CITRATE 250 MCG/5 ML AMP ONE (13:08)
[2016-05-17] MEDS ORDERED: DO NOT ADM ANY ANTICOAGULANT DRUGS XX PRN (13:45)
[2016-05-17] MEDS: LORazepam 2 MG/ML VIAL IV PRN ×2 (16:39→21:24)
--- NOTE | 2016-05-17 17:14 | HHI.CCPN ---
Subjective Remarks/Hospital Course 75 year old female with long-standing history of binge drinking , who presents today for evaluation of GI bleed. Recently she went to visit friends in [place] and was hospitalized for severe epistaxis, thrombocytopenia, and anemia. She required 3 blood transfusions while she was there. She has returned back home about 2 weeks ago. She started passing black tarry stool about 2 days ago. She then started passing some dark red blood and blood clots mixed in her stool yesterday. She did have some hematemesis yesterday- with dark red blood. She complains of a dull ache in her RUQ. Plavix is on her medication list, but states she quit taking this 2 years ago. She takes 4 Excedrin daily for generalized pain. Objective Vital Signs Date Time Temp Pulse Resp B/P Pulse Ox O2 Delivery O2 Flow Rate FiO2 05/17/16 16:00 98.3 59 18 118/59 97 05/17/16 13:30 Nasal Cannula 2 Intake and Output 05/16/16 05/16/16 05/17/16 08:00 16:00 00:00 Intake Total 1191 ml Output Total 825 ml Balance 366 ml Result Diagram: 05/17/16 0900 05/17/16 0320 Objective Remarks GENERAL: Well-nourished, well-developed patient. SKIN: Warm and dry. HEAD: Normocephalic. EYES: No scleral icterus. No injection or drainage. NECK: Supple, trachea midline. No JVD or lymphadenopathy. CARDIOVASCULAR: Regular rate and rhythm without murmurs, gallops, or rubs. RESPIRATORY: Breath sounds equal bilaterally. No accessory muscle use. GASTROINTESTINAL: Abdomen soft, non-tender, nondistended. MUSCULOSKELETAL: No cyanosis, or edema. BACK: Nontender without obvious deformity. No CVA tenderness. A/P Problem List: (1) Thrombocytopenia ICD Code: D69.6 Status: Acute (2) GI bleed ICD Code: K92.2 Status: Acute (3) Chronic alcohol abuse ICD Code: F10.10 Status: Acute Assessment and Plan GI bleed - Possible portal hypertension - Octreotide drip - Protonix drip - Management per GI Alcohol dependence - CIWA protocol - Counseling provided Hypokalemia - Resolved - DC IV fluids Acute renal failure - Due to volume loss - Hydration by mouth - Monitor I's and O DVT GI prophylaxis - Teds SCDs Protonix drip Level 3 Problem Qualifiers (1) GI bleed: Qualified Code: K29.21 - Gastrointestinal hemorrhage associated with alcoholic gastritis Adan Rothman MD May 17, 2016 17:14
[2016-05-18] VITALS (13 sets, daily range): BP systolic 119–152; BP diastolic 58–66; PULSE 62–74; RESP 20–28; TEMP 98.6–99.6; O2SAT 89–97
[2016-05-18] MEDS: OCTREOTIDE INJ 500 MCG in SODIUM CHLORID 0.9% 500 ML INJ 499.5 ML IV SCH ×2 (01:01→12:45)
[2016-05-18] MEDS: CHLORHEXIDINE GLUCONATE 2 % 1 PACK (2 CLOTHS) TOP SCH (02:17)
[2016-05-18] MEDS: NS + KCL 20 MEQ INJ 1,000 ML IV SCH ×2 (03:47→08:13)
[2016-05-18] MEDS: MORPHINE SULFATE 4 MG/ML INJ IV PRN ×4 (03:48→20:46)
[2016-05-18] MEDS: PANTOPRAZOLE INJ 80 MG in SODIUM CHLORIDE 0.9% INJ 100 ML IV SCH (06:01)
[2016-05-18] MEDS: SODIUM CHLORIDE 0.9% FLUSH 5 ML FLUSH IV FLUSH SCH ×2 (08:13→20:24)
[2016-05-18] MEDS: LORazepam 1 MG TAB PO PRN ×2 (08:22→12:50)
--- NOTE | 2016-05-18 10:37 | HHI.PR ---
Subjective Remarks Follow-up GI bleed/hematemesis/alcohol dependence 05/18/16-patient seen and examined, alert and oriented 3, no report of GI bleeds. Has been panendoscopy yesterday. Objective Vitals Vital Signs Date Time Temp Pulse Resp B/P Pulse Ox O2 Delivery O2 Flow Rate FiO2 05/18/16 06:00 63 05/18/16 04:00 99.6 69 23 119/59 96 05/18/16 04:00 69 05/18/16 02:00 62 05/18/16 00:00 98.6 72 25 136/63 95 05/18/16 00:00 72 05/17/16 21:33 95 Nasal Cannula 2.00 05/17/16 20:00 61 05/17/16 20:00 98.5 61 26 126/64 96 05/17/16 16:00 98.3 59 18 118/59 97 05/17/16 16:00 59 05/17/16 13:30 98.0 58 12 109/53 94 Nasal Cannula 2 05/17/16 13:15 58 12 111/57 94 05/17/16 13:00 78 18 103/51 97 Nasal Cannula 2 05/17/16 12:54 98.0 72 15 109/47 97 Nasal Cannula 2 05/17/16 12:00 98.0 59 18 117/58 97 05/17/16 12:00 59 I/O 05/17/16 05/17/16 05/17/16 05/18/16 05/18/16 05/18/16 07:00 15:00 23:00 07:00 15:00 23:00 Intake Total 1199 ml 1600 ml 1394 ml 1360 ml Output Total 175 ml 350 ml 400 ml 250 ml Balance 1024 ml 1250 ml 994 ml 1110 ml Intake Oral 0 ml 150 ml 360 ml 240 ml IV Total 1199 ml 1150 ml 1034 ml 1120 ml Other 300 ml Output Urine Total 175 ml 350 ml 400 ml 250 ml # Bowel Movements 0 0 0 0 Result Diagram: 05/17/16 0900 05/17/16 0320 Imaging Last Impressions Abdomen/Pelvis CT 05/16/16 0000 Signed Impressions: Service Date/Time: May 17:02 - CONCLUSION: 1. Findings of acute pancreatitis without ductal dilatation. 2. Mild ascites 3. Cirrhosis and portal hypertension Juma Giraldo MD Objective Remarks GENERAL: NAD SKIN: Warm and dry. HEAD: Normocephalic. EYES: No scleral icterus. No injection or drainage. NECK: Supple, trachea midline. No JVD or lymphadenopathy. CARDIOVASCULAR: Regular rate and rhythm without murmurs, gallops, or rubs. RESPIRATORY: Breath sounds equal bilaterally. No accessory muscle use. GASTROINTESTINAL: Abdomen soft, non-tender, nondistended. MUSCULOSKELETAL: No cyanosis, or edema. BACK: Nontender without obvious deformity. No CVA tenderness. A/P Problem List: (1) GI bleed ICD Code: K92.2 Status: Acute (2) Chronic alcohol abuse ICD Code: F10.10 Status: Acute (3) Renal insufficiency ICD Code: N28.9 Status: Resolved (4) Thrombocytopenia ICD Code: D69.6 Status: Acute (5) Hypokalemia ICD Code: E87.6 Status: Acute (6) Chronic diastolic (congestive) heart failure ICD Code: I50.32 Status: Acute (7) Benign hypertension ICD Code: I10 Status: Acute Assessment and Plan 75-year-old female with GI bleed/hematemesis:likely 2/2 portal hypertension. Status post panendoscopy without any active bleed. Appreciate input from GI. Currently on octreotide and Protonix drip. Continue Alcohol dependence: Advised to quit, continue with CIWA protocol. Rally pack. Hyperammonemia: Check ammonia and treat accordingly Hypokalemia: Resolved. Acute renal failure: Resolved. History of chronic diastolic CHF: Resume Lasix Hypertension: Currently soft BP therefore will hold on resuming lisinopril and Coreg. DVT GI prophylaxis - Teds SCDs Protonix drip Transfer to [facility] Problem Qualifiers (1) GI bleed: Qualified Code: K29.21 - Gastrointestinal hemorrhage associated with alcoholic gastritis Chito Robles MD May 18, 2016 10:37
--- NOTE | 2016-05-18 13:43 | HHI.GIFU ---
Subjective Remarks Resting in bed. No active bleeding. No further nose bleeds. Still having abdominal pain. Nausea, without vomiting. (Vicky Rodriguez) Objective Vitals I&O Vital Signs Date Time Temp Pulse Resp B/P Pulse Ox O2 Delivery O2 Flow Rate FiO2 05/18/16 08:28 16 05/18/16 08:00 62 05/18/16 08:00 99.1 62 28 124/58 94 05/18/16 07:34 97 Nasal Cannula 2.00 05/18/16 06:00 63 05/18/16 04:00 99.6 69 23 119/59 96 05/18/16 04:00 69 05/18/16 02:00 62 05/18/16 00:00 98.6 72 25 136/63 95 05/18/16 00:00 72 05/17/16 21:33 95 Nasal Cannula 2.00 05/17/16 20:00 61 05/17/16 20:00 98.5 61 26 126/64 96 05/17/16 16:00 98.3 59 18 118/59 97 05/17/16 16:00 59 I/O 05/17/16 05/17/16 05/17/16 05/18/16 05/18/16 05/18/16 07:00 15:00 23:00 07:00 15:00 23:00 Intake Total 1199 ml 1600 ml 1394 ml 1360 ml Output Total 175 ml 350 ml 400 ml 250 ml Balance 1024 ml 1250 ml 994 ml 1110 ml Intake Oral 0 ml 150 ml 360 ml 240 ml IV Total 1199 ml 1150 ml 1034 ml 1120 ml Other 300 ml Output Urine Total 175 ml 350 ml 400 ml 250 ml # Bowel Movements 0 0 0 0 Imaging Last Impressions Abdomen/Pelvis CT 05/16/16 0000 Signed Impressions: Service Date/Time: May 17:02 - CONCLUSION: 1. Findings of acute pancreatitis without ductal dilatation. 2. Mild ascites 3. Cirrhosis and portal hypertension Juma Giraldo MD Physical Exam HEENT: Normocephalic; atraumatic; no jaundice. CHEST: CTA CARDIAC: RRR ABDOMEN: Soft, nondistended, diffuse tenderness; no hepatosplenomegaly; bowel sounds are present in all four quadrants. EXTREMITIES: No clubbing, cyanosis, or edema. SKIN: Normal; no rash; no jaundice. DIVING SUPERVISOR: No focal deficits; alert and oriented times three. (Vicky Rodriguez) Assessment and Plan Plan ASSESSMENT: - GIB, Hematemesis yesterday- passing both dark and red blood with clots in her stool. Of note, does have recent hx of severe epistaxis requiring hospitalization, tx, and transfusions about a month ago. Also with hx of esophageal varices and recent binge drinking. Pt is not very forthcoming with the amount and is unable to quantify. (+) Excedrin use. S/P EGD ()---> esophagitis, gastritis. Pathology pending. - Anemia, acute blood loss. 9.09/01.2. Octreotide, Protonix Gtt - Thrombocytopenia. 74,000. - Elevated LFTs. Pt reports hx of liver disease and denies cirrhosis, although she was told in the past that she had varices- none seen on exam - Acute pancreatitis. Abdomen/Pelvis CT (05/16/16)-----> 1. Findings of acute pancreatitis without ductal dilatation. 2. Mild ascites 3. Cirrhosis and portal hypertension. Lipase on 05/16 489. Full liquids - Recent hospitalization for severe epistaxis requiring multiple transfusions and tx to stop the bleeding (no response to packing), ENT had to go in to control bleeding. pt reports that she has continued to have nose bleeds since that time - ETOH abuse. States she has a long hx of ETOH abuse, intermittently. Recently been binge drinking since the of her 2 months ago. - CAD, HTN, Hypothyroidism per primary PLAN: - Full liquids - Await pathology - Protonix 40mg po daily - D/C Octreotide - D/C Protonix Gtt - CBC, Lipase in am - Monitor HH - Transfuse as necessary - Supportive care - Further recommendations to follow based on results of above - Pt seen and examined by Dr. Malone and myself and this note is written on his behalf (Vicky Rodriguez) Physician Comments Seen and examined with Ms. Rodriguez, No bleeding reported. Dc octreotide. Diet as tolerated.Discussed with nurse at the bedside. (Yared Malone MD) Vicky Rodriguez May 18, 2016 13:43 Yared Malone MD May 18, 2016 13:58
--- NOTE | 2016-05-18 15:54 | EKG ---
Date Performed: 05/17/2016 Time Performed: 13:13:21 PTAGE: 75 years EKG: Sinus rhythm NORMAL ECG PREVIOUS TRACING : 07/19/2007 09.44 Compared to previous tracing, R-wave progression has improv ed. DOCTOR: Luis Yu Interpretating Date/Time 05/18/2016 15:53:46
[2016-05-18] MEDS: ZOLPIDEM TARTRATE 5 MG TAB PO PRN (20:44)
[2016-05-19] VITALS (9 sets, daily range): BP systolic 129–156; BP diastolic 64–81; PULSE 75–81; RESP 16–19; TEMP 95.1–99.3; O2SAT 90–96
[2016-05-19] MEDS: MORPHINE SULFATE 4 MG/ML INJ IV PRN ×4 (00:14→21:21)
[2016-05-19] MEDS: CHLORHEXIDINE GLUCONATE 2 % 1 PACK (2 CLOTHS) TOP SCH (04:00)
[2016-05-19 07:41] LABS: AUTOMATED NEUTROPHIL # 2.4 TH/MM3 (1.8-7.7); BASOPHIL % 1.2 % (0.0-2.0); EOSINOPHIL # 0.1 TH/MM3 (0-0.4); HEMATOCRIT 28.8 % (35.0-46.0); LYMPH % 25.7 % (9.0-44.0); MEAN CELL VOLUME 96.9 FL (80.0-100.0); MEAN CORPUSCULAR HEMOGLOBIN 31.8 PG (27.0-34.0); MEAN CORPUSCULAR HGB CONC 32.8 % (32.0-36.0); MONO % 10.3 % (0.0-8.0); NEUT % 60.8 % (16.0-70.0); PLATELET COUNT 68 TH/MM3 (150-450); RED BLOOD COUNT 2.98 MIL/MM3 (4.00-5.30); RED CELL DISTRIBUTION WIDTH 18.4 % (11.6-17.2); WHITE BLOOD COUNT 3.9 TH/MM3 (4.0-11.0)
[2016-05-19 07:46] LABS: HEMO FLAGS AUTO DIFF
[2016-05-19 07:55] LABS: ALT (GPT) 36 U/L (10-53); ANION GAP 9 MEQ/L (5-15); AST (GOT) 64 U/L (15-37); BICARBONATE 18.4 MEQ/L (21.0-32.0); BLOOD UREA NITROGEN 10 MG/DL (7-18); CHLORIDE 114 MEQ/L (98-107); GLOMERULAR FILTRATION RATE 53 ML/MIN (>89); POTASSIUM 4.5 MEQ/L (3.5-5.1); SODIUM (NA) 141 MEQ/L (136-145)
[2016-05-19 07:58] LABS: ALKALINE PHOSPHATASE 107 U/L (45-117); TOTAL BILIRUBIN ADULT 0.9 MG/DL (0.2-1.0)
--- NOTE | 2016-05-19 09:07 | HHI.PR ---
Subjective Remarks Follow-up GI bleed/hematemesis/alcohol dependence 05/18/16-patient seen and examined, alert and oriented 3, no report of GI bleeds. Has been panendoscopy yesterday. 05/19/16-patient seen and examined, complains of abdominal pain but denies any GI bleeding. Requesting some narcotics. Objective Vitals Vital Signs Date Time Temp Pulse Resp B/P Pulse Ox O2 Delivery O2 Flow Rate FiO2 05/19/16 04:00 97.4 79 17 129/67 94 05/19/16 01:49 78 05/19/16 00:45 98.3 78 19 129/67 94 05/18/16 22:22 26 05/18/16 22:00 74 05/18/16 20:00 98.9 71 22 152/66 91 05/18/16 20:00 71 05/18/16 18:00 71 05/18/16 16:00 99.2 67 20 135/61 89 05/18/16 16:00 67 05/18/16 14:00 69 05/18/16 12:00 64 05/18/16 12:00 99.0 64 24 136/64 94 05/18/16 10:00 63 I/O 05/18/16 05/18/16 05/18/16 05/19/16 05/19/16 05/19/16 07:00 15:00 23:00 07:00 15:00 23:00 Intake Total 1360 ml 1804 ml 885 ml 0 ml Output Total 250 ml 450 ml 600 ml 600 ml Balance 1110 ml 1354 ml 285 ml -600 ml Intake Oral 240 ml 300 ml 100 ml 0 ml IV Total 1120 ml 1504 ml 785 ml Output Urine Total 250 ml 450 ml 600 ml 600 ml # Bowel Movements 0 0 0 Result Diagram: 05/19/1671905/19/16719 Objective Remarks GENERAL: NAD SKIN: Warm and dry. HEAD: Normocephalic. EYES: No scleral icterus. No injection or drainage. NECK: Supple, trachea midline. No JVD or lymphadenopathy. CARDIOVASCULAR: Regular rate and rhythm without murmurs, gallops, or rubs. RESPIRATORY: Breath sounds equal bilaterally. No accessory muscle use. GASTROINTESTINAL: Abdomen soft, non-tender, nondistended. MUSCULOSKELETAL: No cyanosis, or edema. BACK: Nontender without obvious deformity. No CVA tenderness. A/P Problem List: (1) GI bleed ICD Code: K92.2 Status: Acute (2) Chronic alcohol abuse ICD Code: F10.10 Status: Acute (3) Renal insufficiency ICD Code: N28.9 Status: Resolved (4) Thrombocytopenia ICD Code: D69.6 Status: Acute (5) Hypokalemia ICD Code: E87.6 Status: Acute (6) Chronic diastolic (congestive) heart failure ICD Code: I50.32 Status: Acute (7) Benign hypertension ICD Code: I10 Status: Acute Assessment and Plan 75-year-old female with GI bleed/hematemesis:likely 2/2 portal hypertension. Status post panendoscopy without any active bleed. Appreciate input from GI. s/p octreotide and Protonix drip, now on Protonix 40 mg daily. Advance diet as tolerated Alcohol dependence: Advised to quit, continue with CIWA protocol. Rally pack. Hyperammonemia: Ammonia of 63, start lactulose 30 mg daily Hypokalemia: Resolved. Acute renal failure: Resolved. History of chronic diastolic CHF: Continue Lasix Hypertension: Currently soft BP therefore will hold on resuming lisinopril and Coreg. DVT GI prophylaxis - Teds SCDs Protonix Problem Qualifiers (1) GI bleed: Qualified Code: K29.21 - Gastrointestinal hemorrhage associated with alcoholic gastritis Cihto Robles MD May 19, 2016 09:07
[2016-05-19 09:26] LABS: PLATELET ESTIMATE SMEAR LOW (NORMAL); PLATELET MORPHOLOGY NORMAL (NORMAL); SCAN/DIFF AUTO DIFF CONFIRMED
[2016-05-19] MEDS: FUROSEMIDE 40 MG TAB PO SCH (09:36)
[2016-05-19] MEDS: SODIUM CHLORIDE 0.9% FLUSH 5 ML FLUSH IV FLUSH SCH ×2 (09:36→20:46)
[2016-05-19] MEDS: ISOSORBIDE MONONITRATE 60 MG TAB PO SCH (09:37)
[2016-05-19] MEDS: POTASSIUM CHLORIDE 20 MEQ CONTROLLED RELEASE TAB PO SCH (09:37)
[2016-05-19] MEDS: PANTOPRAZOLE SOD 40 MG DELAYED RELEASE TAB PO SCH (09:37)
[2016-05-19] MEDS: LACTULOSE SYRUP 20 GM/30 ML CUP PO SCH (09:47)
[2016-05-19] MEDS: ONDANSETRON HCL 4 MG/2 ML VIAL IV PRN (21:28)
[2016-05-20] MEDS: MORPHINE SULFATE 4 MG/ML INJ IV PRN ×5 (00:45→16:08)
[2016-05-20 04:00] VITALS: BP 172/67; PULSE 89; RESP 19; TEMP 98.6; O2SAT 97
[2016-05-20] MEDS: CHLORHEXIDINE GLUCONATE 2 % 1 PACK (2 CLOTHS) TOP SCH (04:00)
[2016-05-20] MEDS: ONDANSETRON HCL 4 MG/2 ML VIAL IV PRN ×2 (04:43→12:26)
[2016-05-20 08:00] VITALS: BP 152/71; PULSE 71; RESP 15; TEMP 98.7; O2SAT 92
[2016-05-20] MEDS: POTASSIUM CHLORIDE 20 MEQ CONTROLLED RELEASE TAB PO SCH (08:52)
[2016-05-20] MEDS: PANTOPRAZOLE SOD 40 MG DELAYED RELEASE TAB PO SCH (08:52)
[2016-05-20] MEDS: SODIUM CHLORIDE 0.9% FLUSH 5 ML FLUSH IV FLUSH SCH (08:52)
[2016-05-20] MEDS: ISOSORBIDE MONONITRATE 60 MG TAB PO SCH (08:52)
[2016-05-20] MEDS: LACTULOSE SYRUP 20 GM/30 ML CUP PO SCH (08:52)
[2016-05-20] MEDS: FUROSEMIDE 40 MG TAB PO SCH (08:52)
--- NOTE | 2016-05-20 10:22 | HHI.PR ---
Subjective Remarks Follow-up GI bleed/hematemesis/alcohol dependence 05/18/16-patient seen and examined, alert and oriented 3, no report of GI bleeds. Has been panendoscopy yesterday. 05/19/16-patient seen and examined, complains of abdominal pain but denies any GI bleeding. Requesting some narcotics. 03/19/17-patient seen and examined; afebrile no GI bleed. Complains of abdominal pain otherwise stable. Objective Vitals Vital Signs Date Time Temp Pulse Resp B/P Pulse Ox O2 Delivery O2 Flow Rate FiO2 05/20/16 08:00 98.7 71 15 152/71 92 05/20/16 04:00 98.6 89 19 172/67 97 05/19/16 20:13 75 05/19/16 20:00 97.3 81 19 156/79 93 05/19/16 16:00 99.3 80 16 150/77 92 05/19/16 12:00 95.1 76 16 136/81 96 I/O 05/19/16 05/19/16 05/19/16 05/20/16 05/20/16 05/20/16 07:00 15:00 23:00 07:00 15:00 23:00 Intake Total 0 ml 260 ml 240 ml 240 ml Output Total 600 ml 1800 ml 650 ml 250 ml Balance -600 ml -1540 ml -410 ml -10 ml Intake Oral 0 ml 260 ml 240 ml 240 ml Output Urine Total 600 ml 1800 ml 650 ml 250 ml # Bowel Movements 0 1 0 Result Diagram: 05/19/16 0720 05/19/16 0720 Imaging Last Impressions Abdomen/Pelvis CT 05/16/16 0000 Signed Impressions: Service Date/Time: May 17:02 - CONCLUSION: 1. Findings of acute pancreatitis without ductal dilatation. 2. Mild ascites 3. Cirrhosis and portal hypertension Juma Giraldo MD Objective Remarks GENERAL: NAD SKIN: Warm and dry. HEAD: Normocephalic. EYES: No scleral icterus. No injection or drainage. NECK: Supple, trachea midline. No JVD or lymphadenopathy. CARDIOVASCULAR: Regular rate and rhythm without murmurs, gallops, or rubs. RESPIRATORY: Breath sounds equal bilaterally. No accessory muscle use. GASTROINTESTINAL: Abdomen soft, non-tender, nondistended. MUSCULOSKELETAL: No cyanosis, or edema. BACK: Nontender without obvious deformity. No CVA tenderness. A/P Problem List: (1) GI bleed ICD Code: K92.2 Status: Acute (2) Chronic alcohol abuse ICD Code: F10.10 Status: Acute (3) Renal insufficiency ICD Code: N28.9 Status: Resolved (4) Thrombocytopenia ICD Code: D69.6 Status: Acute (5) Hypokalemia ICD Code: E87.6 Status: Acute (6) Chronic diastolic (congestive) heart failure ICD Code: I50.32 Status: Acute (7) Benign hypertension ICD Code: I10 Status: Acute Assessment and Plan 75-year-old female with GI bleed/hematemesis:likely 2/2 portal hypertension. Status post panendoscopy without any active bleed. Appreciate input from GI. s/p octreotide and Protonix drip, now on Protonix 40 mg daily. Advance diet as tolerated Alcohol dependence: Advised to quit, continue with CIWA protocol. Rally pack. Hyperammonemia: Ammonia of 63, start lactulose 30 mg daily Hypokalemia: Resolved. Acute renal failure: Resolved. History of chronic diastolic CHF: Continue Lasix Hypertension: Currently soft BP therefore will hold on resuming lisinopril and Coreg. DVT GI prophylaxis - Teds SCDs Protonix Problem Qualifiers (1) GI bleed: Qualified Code: K29.21 - Gastrointestinal hemorrhage associated with alcoholic gastritis Chito Robles MD May 20, 2016 10:22
[2016-05-20] MEDS ORDERED: LACT10SO PO (10:24)
[2016-05-20] MEDS ORDERED: THIA100T PO (10:27)
--- NOTE | 2016-05-20 10:29 | HHI.DS ---
Discharge Summary Admission Date May 16, 2016 at 16:56 Discharge Date: May 20, 2016 Admitting Diagnosis GI bleed, thrombocytopenia, hypokalemia, chronic alcoholic (1) GI bleed ICD Code: K92.2 (2) Chronic alcohol abuse ICD Code: F10.10 (3) Renal insufficiency ICD Code: N28.9 (4) Thrombocytopenia ICD Code: D69.6 (5) Hypokalemia ICD Code: E87.6 (6) Chronic diastolic (congestive) heart failure ICD Code: I50.32 (7) Benign hypertension ICD Code: I10 Procedures Panendoscopy Brief History - From Admission 75 year old female with long-standing history of binge drinking , who presents today for evaluation of GI bleed. Recently she went to visit friends in [place] and was hospitalized for severe epistaxis, thrombocytopenia, and anemia. She required 3 blood transfusions while she was there. She has returned back home about 2 weeks ago. She started passing black tarry stool about 2 days ago. She then started passing some dark red blood and blood clots mixed in her stool yesterday. She did have some hematemesis yesterday- with dark red blood. She complains of a dull ache in her RUQ. Plavix is on her medication list, but states she quit taking this 2 years ago. She takes 4 Excedrin daily for generalized pain. CBC/BMP: 05/19/16 0720 05/19/16 0720 Significant Findings Laboratory Tests Test 05/19/16 05/20/16 07:20 06:20 White Blood Count 3.9 TH/MM3 (4.0-11.0) Red Blood Count 2.98 MIL/MM3 (4.00-5.30) Hemoglobin 9.5 GM/DL (11.6-15.3) Hematocrit 28.8 % (35.0-46.0) Red Cell Distribution Width 18.4 % (11.6-17.2) Platelet Count 68 TH/MM3 (150-450) Monocytes (%) (Auto) 10.3 % (0.0-8.0) Platelet Estimate LOW (NORMAL) Chloride Level 114 MEQ/L (98-107) Carbon Dioxide Level 18.4 MEQ/L (21.0-32.0) Creatinine 1.02 MG/DL (0.50-1.00) Estimat Glomerular Filtration 53 ML/MIN (>89) Rate Random Glucose 107 MG/DL (74-106) Calcium Level 8.0 MG/DL (8.5-10.1) Aspartate Amino Transf 64 U/L (15-37) (AST/SGOT) Ammonia 62 MCMOL/L 50 MCMOL/L (11-32) (11-32) Albumin 2.6 GM/DL (3.4-5.0) Imaging Last Impressions Abdomen/Pelvis CT 05/16/16 0000 Signed Impressions: Service Date/Time: May 17:02 - CONCLUSION: 1. Findings of acute pancreatitis without ductal dilatation. 2. Mild ascites 3. Cirrhosis and portal hypertension Juma Giraldo MD PE at Discharge GENERAL: NAD SKIN: Warm and dry. HEAD: Normocephalic. EYES: No scleral icterus. No injection or drainage. NECK: Supple, trachea midline. No JVD or lymphadenopathy. CARDIOVASCULAR: Regular rate and rhythm without murmurs, gallops, or rubs. RESPIRATORY: Breath sounds equal bilaterally. No accessory muscle use. GASTROINTESTINAL: Abdomen soft, non-tender, nondistended. MUSCULOSKELETAL: No cyanosis, or edema. BACK: Nontender without obvious deformity. No CVA tenderness. Hospital Course Patient was admitted secondary to upper GI bleed for which she was started on octreotide and Protonix drip with consultation to gastroenterology, and she underwent panendoscopy. She was subsequently switched to by mouth Protonix and her diet was advanced. She was started on CIWA protocol. Patient was also treated for hyperammonemia with daily lactulose 30 mg with monitoring of ammonia. All electrolyte abnormalities were corrected accordingly. Her oral antihypertensive medications were resumed accordingly and vitals were monitored. DVT prophylaxis as well as GI Pradaxa were provided. Pt Condition on Discharge: Stable Discharge Disposition: Discharge to SNF Discharge Time: > 30 minutes Discharge Instructions Follow up Referrals: Gastroenterology PCP Follow-up - 1 Week New Medications: Thiamine (Thiamine) 100 Mg Tab 100 MG PO DAILY Nutritional Supplement #30 Ref 0 TAB Lactulose Liq (Lactulose Liq) 10 Gm/15 Ml Soln 30 ML PO DAILY Alcohol Detox #10 ML Continued Medications: Carvedilol (Carvedilol) 6.25 Mg Tab 6.25 MG PO BID #60 Ref 0 TAB Furosemide (Lasix) 40 Mg Tab 40 MG PO DAILY #30 Ref 0 TAB Isosorbide Mononitrate ER (Isosorbide Mononitrate ER) 60 Mg Tab 60 MG PO DAILY Prevent Chest Pain #30 Ref 0 TAB Lisinopril (Lisinopril) 20 Mg Tab 20 MG PO BID #30 Ref 0 TAB Omeprazole (Omeprazole) 40 Mg Cap 40 MG PO DAILY #30 Ref 0 CAP Potassium Chloride ER (Potassium Chloride ER) 20 Meq Tab 20 MEQ PO DAILY Electrolyte Replacement #30 Ref 0 TAB Chito Robles MD May 20, 2016 10:29
[2016-05-20] MEDS ORDERED: CARVEDILOL 6.25 MG TAB PO SCH (10:30)
[2016-05-20 12:00] VITALS: BP 138/69; PULSE 74; RESP 18; TEMP 96.5; O2SAT 96
[2016-05-20] MEDS ORDERED: HYDR-3533 PO (14:26)
[2016-05-20] MEDS ORDERED: PERI8.6T PO (14:26)
--- NOTE | 2016-05-20 16:51 | HHI.GIFU ---
Subjective Remarks Resting in bed. No n/v. No bleeding. C/O joint pain in her toes in bilateral feet and states she will not be able to walk until she gets her Indocin and allopurinol for her gout. Objective Vitals I&O Vital Signs Date Time Temp Pulse Resp B/P Pulse Ox O2 Delivery O2 Flow Rate FiO2 05/20/16 12:00 96.5 74 18 138/69 96 05/20/16 08:00 98.7 71 15 152/71 92 05/20/16 04:00 98.6 89 19 172/67 97 05/19/16 20:13 75 05/19/16 20:00 97.3 81 19 156/79 93 I/O 05/19/16 05/19/16 05/19/16 05/20/16 05/20/16 05/20/16 07:00 15:00 23:00 07:00 15:00 23:00 Intake Total 0 ml 260 ml 240 ml 240 ml 600 ml Output Total 600 ml 1800 ml 650 ml 250 ml Balance -600 ml -1540 ml -410 ml -10 ml 600 ml Intake Oral 0 ml 260 ml 240 ml 240 ml 600 ml Output Urine Total 600 ml 1800 ml 650 ml 250 ml # Bowel Movements 0 1 0 Laboratory Laboratory Tests Test 05/20/16 06:20 Ammonia 50 Imaging Last Impressions Abdomen/Pelvis CT 05/16/16 0000 Signed Impressions: Service Date/Time: May 17:02 - CONCLUSION: 1. Findings of acute pancreatitis without ductal dilatation. 2. Mild ascites 3. Cirrhosis and portal hypertension Juma Giraldo MD Physical Exam HEENT: Normocephalic; atraumatic; no jaundice. CHEST: CTA CARDIAC: RRR ABDOMEN: Soft, nondistended, diffuse tenderness; no hepatosplenomegaly; bowel sounds are present in all four quadrants. EXTREMITIES: No clubbing, cyanosis, or edema. SKIN: Normal; no rash; no jaundice. ROADSIDE MECHANIC: No focal deficits; alert and oriented times three. Assessment and Plan Plan ASSESSMENT: - GIB, Hematemesis yesterday- passing both dark and red blood with clots in her stool. Of note, does have recent hx of severe epistaxis requiring hospitalization, tx, and transfusions about a month ago. Also with hx of esophageal varices and recent binge drinking. Pt is not very forthcoming with the amount and is unable to quantify. (+) Excedrin use. S/P EGD ()---> esophagitis, gastritis. Pathology reactive/chemical gastropathy in the background of mild chronic gastritis, negative for helicobacter pylori. No further bleeding. HH stable .8. Tolerating diet. PPI. - Anemia, acute blood loss. .2. Protonix. - Thrombocytopenia. 68,000. - Elevated LFTs. Pt reports hx of liver disease and denies cirrhosis, although she was told in the past that she had varices- none seen on exam - Elevated ammonia, but alert and oriented. - Acute pancreatitis. Abdomen/Pelvis CT (05/16/16)-----> 1. Findings of acute pancreatitis without ductal dilatation. 2. Mild ascites 3. Cirrhosis and portal hypertension. Lipase on 05/16 489. EMILY - Recent hospitalization for severe epistaxis requiring multiple transfusions and tx to stop the bleeding (no response to packing), ENT had to go in to control bleeding. pt reports that she has continued to have nose bleeds since that time - ETOH abuse. States she has a long hx of ETOH abuse, intermittently. Recently been binge drinking since the of her 2 months ago. - CAD, HTN, Hypothyroidism, Gout per primary PLAN: - Low fat diet - Protonix 40mg po daily - No ETOH - FU IRAIDA 2 weeks - Pt seen and examined by Dr. Deras and myself and this note is written on her behalf Vicky Rodriguez May 20, 2016 16:51
[2016-05-20] MEDS ORDERED: LISINOPRIL 20 MG TAB PO SCH (21:00)
== END 2016-05-20 17:12 | DRG 377 ==
LOC: NEPE 14:45 → NEDA 16:56 → HIMW 19:30 → HOCA 05-18 23:40
PROVIDERS: ADMIT Hospitalist; ATTEND Hospitalist
PROC: 0DB68ZX Excision of Stomach, Via Natural or Artificial Opening Endoscopic, Diagnostic (ICD-10-PCS; principal; 2016-05-17 11:50)
DX: K29.21 Alcoholic gastritis with bleeding (principal); K85.90 Acute pancreatitis without necrosis or infection, unspecified; N17.9 Acute kidney failure, unspecified; I50.32 Chronic diastolic (congestive) heart failure; K76.6 Portal hypertension; D62 Acute posthemorrhagic anemia; R18.8 Other ascites; F10.239 Alcohol dependence with withdrawal, unspecified; D69.6 Thrombocytopenia, unspecified; E87.6 Hypokalemia; I25.10 Atherosclerotic heart disease of native coronary artery without angina pectoris; I10 Essential (primary) hypertension; E03.9 Hypothyroidism, unspecified; F41.9 Anxiety disorder, unspecified; E78.00 Pure hypercholesterolemia, unspecified; I25.2 Old myocardial infarction; K21.0 Gastro-esophageal reflux disease with esophagitis; K74.60 Unspecified cirrhosis of liver; K31.9 Disease of stomach and duodenum, unspecified; M10.9 Gout, unspecified; F17.210 Nicotine dependence, cigarettes, uncomplicated; Y90.7 Blood alcohol level of 200-239 mg/100 ml; Z95.5 Presence of coronary angioplasty implant and graft
CPT/HCPCS: 74176; 80053; 80320; 81001; 82140; 83690; 83735; 84100; 85014; 85018; 85025; 85610; 85730; 86850; 86900; 86901; 87641; 88305; 88312; 93005; 96365; 96366; 96375; C9113; J2060; J2270; J2354; J2405; J3010; J3480; J7030; J7040

== ENCOUNTER 2016-11-12 18:45 | Inpatient (IN) | payer MEDICARE ==
[2016-11-12] VITALS (10 sets, daily range): BP systolic 137–182; BP diastolic 68–97; PULSE 60–86; RESP 12–20; TEMP 97.3–97.8; O2SAT 93–99
[~2016-11-12] VITALS: Ht 162.6 cm; Wt 64.4 kg
[~2016-11-12 18:45] MED LIST changes: +BACT800T5 PO; +CARV3.125 PO; -CARV6.25 PO; +CITA10TA4 PO; -CLOP75 PO; +FURO1TAB60 PO; -FURO1TAB93 PO; +ISOS60TA PO; -KLOR20TA6 PO; +LACT10SO PO; -LEVO.125 PO; +LEVO75TA3 PO; +LISI10TA3 PO; -LORT5TAB PO; +OMEP20TA PO; +PERI8.6T PO; +POTA-163 PO; -PRIN10TA PO; -PROT40TA PO; +WALKER WHEELS/F1 MIS
[2016-11-12] MEDS ORDERED: IOHEXOL 350 MG/ML 100 ML BTL (for Cath Lab) OTHER ONE (19:00)
--- NOTE | 2016-11-12 19:31 | PD ---
Physical Exam Time Seen by Provider: 19:30 Narrative 76y/o female who was just discharged here a few hours ago and sent to [facility] c/o chest pain. Vital signs reviewed. Seen at triage desk. Awaiting bed placement. Data Data Last Documented VS Vital Signs Date Time Temp Pulse Resp B/P Pulse Ox O2 Delivery O2 Flow Rate FiO2 11/12/16 18:47 97.8 86 17 174/81 96 MDM Medical Record Reviewed: Yes Supervised Visit with KATERIN: Brent Card Nov 12, 2016 19:31
[2016-11-12] MEDS ORDERED: SODIUM CHLOR 0.9% 1000 ML INJ 1,000 ML IV ONE (20:08)
[2016-11-12] MEDS ORDERED: ASPIRIN 81 MG CHEW TAB PO STA (20:08)
[2016-11-12] MEDS ORDERED: NITROGLYCERIN 0.4 MG SL 25 TABS/BTL SL STA (20:08)
[2016-11-12] MEDS ORDERED: HEPARIN SODIUM - IV 10,000 UNITS/10 ML VIAL IV STA (20:08)
[2016-11-12] MEDS ORDERED: NITROGLYCERIN-DEXTROSE INJ 250 ML IV SCH (20:15)
[2016-11-12] MEDS ORDERED: SODIUM CHLORIDE 0.9% FLUSH 10 ML FLUSH IVF PRN (20:15)
--- NOTE | 2016-11-12 20:19 | PD ---
HPI Chief Complaint: STEMI Alert Time Seen by Provider: 19:56 Travel History International Travel<30 days: No Contact w/Intl Traveler<30days: No Traveled to known affect area: No History of Present Illness HPI The patient is a 76 year old female who presents to the [facility] emergency department with a history of reportedly developing chest pain approximate 40 minutes prior to arrival. The patient was at the [facility] when this began. She reports that she does have a history of coronary artery disease and has had 5 stents placed previously. She reports that she recently moved to the area from [place] and has not established with a gage maker or primary care physician. The patient reports that the pain as a pressure sensation in the left side of the chest that is 7-1/2-8 out of 10 in severity. The patient reports having associated shortness of breath, nausea without vomiting, and diaphoresis. She denies having any radiation of the pain. The patient was just recently discharged from [facility] after evaluation for psychiatric decompensation. The patient denies any recent fevers, cough, congestion, neck pain, abdominal pain,diarrhea, urinary symptoms , or neurologic symptoms. The patient reports that she did take her usual baby aspirin today. She reports that she was on Plavix in the past, however this was discontinued approximately a year ago. PFSH Past Medical History Narrative Medical The patient's PMH consists of CAD with 5 prior stents, tobacco use, alcohol abuse, liver disease, esophageal varices, HTN, hypothyroid disorder, depression. Arthritis: No Asthma: No Autoimmune Disease: No Blood Disorders: No Anxiety: Yes Depression: Yes Heart Rhythm Problems: No Cancer: No (ABN PAP) Cardiovascular Problems: Yes (5 stents) High Cholesterol: Yes Chemotherapy: No Chest Pain: Yes Congestive Heart Failure: No Cirrhosis: Yes COPD: No Cerebrovascular Accident: No Diabetes: No Diminished Hearing: No Endocrine: No Gastrointestinal Disorders: No GERD: Yes Glaucoma: No Genitourinary: No Headaches: Yes Hepatitis: No Hiatal Hernia: No Heparin Induced Thrombocytopen: No Hypertension: Yes Immune Disorder: No Kidney Stones: No Musculoskeletal: Yes (FACIAL BONES BROKEN) Neurologic: No Psychiatric: Yes Reproductive: No Respiratory: No Migraines: No Myocardial Infarction: Yes Radiation Therapy: No Renal Failure: No Seizures: No Sickle Cell Disease: No Sleep Apnea: No Thyroid Disease: Yes (HYPOTHYROID) Ulcer: Yes Menopausal: Yes Past Surgical History Narrative Surgical The patient's PSH: EGD, colonoscopy, nemo, appy, cardiac cath with stents. AICD: No Appendectomy: Yes Arteriovenous Shunt: No Body Medical Devices: STENTS Cardiac Surgery: Yes (2001, 2002, 2004, 1999 [facility] L[facility]ED 4 STENTS) Cholecystectomy: Yes Coronary Stent: Yes (X 5) Genitourinary Surgery: Yes (GALLBLADDER REMOVED 1958) Insulin Pump: No Joint Replacement: No Pacemaker: No Other Surgery: No Social History Alcohol Use: Yes (STATES DRANK 1 PINT LIQUOR TONIGHT) Tobacco Use: Yes (1/2 pp/DAY) Substance Use: No Allergies-Medications (Allergen,Severity, Reaction): Coded Allergies: No Known Allergies (Verified , 11/09/16) Reported Meds & Prescriptions Reported Meds & Active Scripts Active Walker with Front Wheels (Device) 1 Mis Mis 1 Ea .ROUTE DIRECTED Bactrim DS (Sulfamethoxazole-Trimethoprim) 800-160 Mg Tab 1 Tab PO BID Levothyroxine (Levothyroxine Sodium) 75 Mcg Tab 75 Mcg PO DAILY Omeprazole 20 Mg Tab 20 Mg PO DAILY Citalopram (Citalopram Hydrobromide) 10 Mg Tab 10 Mg PO DAILY Lisinopril 10 Mg Tab 10 Mg PO BID Coreg (Carvedilol) 3.125 Mg Tab 3.125 Mg PO BID Joleen-Colace (Sennosides-Docusate Sodium) 8.6-50 Mg Tab 1 Tab PO BID PRN Lactulose Liq (Lactulose) 10 Gm/15 Ml Soln 30 Ml PO DAILY Potassium Chloride ER (Potassium Chloride) 20 Meq Tab 20 Meq PO DAILY Lasix (Furosemide) 40 Mg Tab 40 Mg PO DAILY Isosorbide Mononitrate ER (Isosorbide Mononitrate) 60 Mg Tab 60 Mg PO DAILY Review of Systems Except as stated in HPI: all other systems reviewed are Neg General / Constitutional: No: Fever Eyes: No: Visual changes HENT: No: Headaches, Congestion Cardiovascular: Positive: Chest Pain or Discomfort, Diaphoresis, Dyspnea on exertion Respiratory: No: Cough, Shortness of Breath Gastrointestinal: Positive: Nausea, No: Vomiting, Abdominal Pain Genitourinary: No: Dysuria Musculoskeletal: No: Pain Skin: No Rash Neurologic: No: Weakness Psychiatric: No: Depression Endocrine: No: Polydipsia Hematologic/Lymphatic: No: Easy Bruising Physical Exam Narrative General: The patient is a well-developed well-nourished female in no acute distress. Head and Neck exam: Head is normocephalic atraumatic. Eyes: EOMI, pupils are equal round and reactive to light. Nose: Midline septum with pink mucous membranes Mouth: Dentition unremarkable. Moist mucus membranes. Posterior oropharynx is not erythematous. No tonsillar hypertrophy. Uvula midline. Airway patent. Neck: No palpable lymphadenopathy. No nuchal rigidity. No thyromegaly. Cardiovascular: Regular rate and rhythm without murmurs, gallops, or rubs. No pulse deficit to the extremities and simultaneous auscultation and palpation of her radial artery. Lungs: Clear to auscultation bilaterally. No wheezes, rhonchi, or rales. Abdomen: Soft, without tenderness to palpation in all 4 quadrants of the abdomen. No guarding, rebound, or rigidity. Normal bowel sounds are audible. No tenderness on palpation of McBurney's point. Extremities: No clubbing, cyanosis, or edema. 2+ pulses in all 4 extremities. No calf tenderness on palpation Back: No costovertebral angle tenderness to palpation. Neurologic Exam: Grossly nonfocal. Skin Exam: No rash noted. Intact skin that is warm and dry. Data Data Last Documented VS Vital Signs Date Time Temp Pulse Resp B/P Pulse Ox O2 Delivery O2 Flow Rate FiO2 11/12/16 20:05 75 20 174/94 98 Room Air 11/12/16 20:05 2.00 11/12/16 18:47 97.8 Orders Electrocardiogram (11/12/16 ) Troponin I (11/12/16 20:08) Ckmb (Isoenzyme) Profile (11/12/16 20:08) Complete Blood Count With Diff (11/12/16 20:08) I-Stat Profile (11/12/16 20:08) I-Stat Creatinine (11/12/16 20:08) Calcium (11/12/16 20:08) Magnesium (Mg) (11/12/16 20:08) Prothrombin Time / Inr (Pt) (11/12/16 20:08) Act Partial Throm Time (Ptt) (11/12/16 20:08) B-Type Natriuretic Peptide (11/12/16 20:08) Chest, Single Ap (11/12/16 20:08) Electrocardiogram (11/12/16 20:08) Oxygen Administration (11/12/16 20:08) Iv Access Insert/Monitor (11/12/16 20:08) Oximetry (11/12/16 20:08) Sodium Chlor 0.9% 1000 Ml Inj (Ns 1000 M (11/12/16 20:08) Sodium Chloride 0.9% Flush (Ns Flush) (11/12/16 20:15) Nitroglycerin Sl (Nitrostat Sl) (11/12/16 20:08) Nitroglycerin-Dextrose Inj (Nitroglyceri (11/12/16 20:15) Heparin Inj (Heparin Inj) (11/12/16 20:08) Aspirin Chew (Aspirin Chew) (11/12/16 20:08) Cardiac Catheterization (11/12/16 ) Heparin-Ns/Pf Inj (Heparin-Ns/Pf Inj) (11/12/16 20:40) Admit Order (Ed Use Only) (11/12/16 20:40) Midazolam Inj (Versed Inj) (11/12/16 20:41) Fentanyl Inj (Fentanyl Inj) (11/12/16 20:41) Heparin Inj (Heparin Inj) (11/12/16 20:41) Nitroglycerin Inj (Nitroglycerin Inj) (11/12/16 20:41) Labs Laboratory Tests Test 11/12/16 20:06 White Blood Count 4.3 TH/MM3 Red Blood Count 3.56 MIL/MM3 Hemoglobin 11.9 GM/DL Bedside Hemoglobin 12.9 G/DL Hematocrit 35.4 % Bedside Hematocrit 38.0 % Mean Corpuscular Volume 99.6 FL Mean Corpuscular Hemoglobin 33.4 PG Mean Corpuscular Hemoglobin 33.5 % Concent Red Cell Distribution Width 17.8 % Platelet Count 89 TH/MM3 Mean Platelet Volume 8.6 FL Neutrophils (%) (Auto) 70.2 % Lymphocytes (%) (Auto) 21.3 % Monocytes (%) (Auto) 3.6 % Eosinophils (%) (Auto) 4.2 % Basophils (%) (Auto) 0.7 % Neutrophils # (Auto) 3.0 TH/MM3 Lymphocytes # (Auto) 0.9 TH/MM3 Monocytes # (Auto) 0.2 TH/MM3 Eosinophils # (Auto) 0.2 TH/MM3 Basophils # (Auto) 0.0 TH/MM3 CBC Comment AUTO DIFF Prothrombin Time 12.7 SEC Prothromb Time International 1.1 RATIO Ratio Activated Partial 25.7 SEC Thromboplast Time Bedside Sodium 137 MMOL/L Bedside Potassium 3.7 MMOL/L Bedside Chloride 96 MMOL/L Bedside Blood Urea Nitrogen 6 MG/DL Bedside Creatinine 0.9 MG/DL Bedside Glucose 92 MG/DL Calcium Level 8.5 MG/DL Magnesium Level 1.5 MG/DL Total Creatine Kinase 50 U/L Troponin I LESS THAN 0.02 NG/ML B-Type Natriuretic Peptide 1863 PG/ML MDM Medical Decision Making Medical Screen Exam Complete: Yes Emergency Medical Condition: Yes Medical Record Reviewed: Yes Differential Diagnosis Acute coronary syndrome, versus STEMI, versus anxiety disorder, versus acid reflux, versus pneumonia Narrative Course During the course of the patients emergency department visit, the patients history, examination, and differential diagnosis were reviewed with the patient. An ECG was done out in triage that showed ECG shows ST elevation in V1 and V2 with deep inverted T waves, Twaves inverted in I and AVL. Rate 71. 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 A STEMI alert was called. The patient had IV access obtained and blood work sent for analysis. I spoke to the gage maker on-call, Dr. Gunn. The patient was initially provided 283 mg of aspirin by mouth. The patient was given a sublingual nitroglycerin while nitroglycerin drip was prepared for the patient. The patient was given heparin 4000 unit in her weight. The patients laboratory studies were reviewed and remarkable for Istat is remarkable for a NA of 137, K 3.7, BUN 6, hemoglobin 12.9, Cr 0.9. Radiology studies were reviewed and remarkable for a chest x-ray that shows cardiomegaly with minimal bibasilar airspace disease. Dr. Gunn after reviewing the patient's ECG findings did recommended the patient go acutely to the cardiac catheterization lab. I did personally transport the patient to the cardiac catheterization lab and hand over care to Dr. Gunn on his arrival. The patients results were discussed with the patient, including the plan of care. I explained that further testing and/ or monitoring is indicated based on the patients history, examination, and/ or laboratory findings. Therefore, I recommended admission for additional evaluation. The patient expressed understanding and was agreeable with this plan. The patient was admitted to the hospital in guarded condition and sent to a bed under the care of the gage maker, Dr. Gunn. Critical Care Narrative Aggregate critical care time was 33 minutes. Time to perform other separately billable procedures was not included in the critical care time. My time did not include minutes spent treating any other patients simultaneously or on activities that did not directly contribute to the patient's treatment. The services I provided to this patient were to treat and/or prevent clinically significant deterioration that could result in: Cardiac arrhythmia, cardiovascular collapse, respiratory failure I provided critical care services requiring my management, as noted below: Chart data review, documentation time, medication orders and management, vital sign assessments/reviewing monitor data, ordering and reviewing lab tests, ordering and interpreting/reviewing x-rays and diagnostic studies, care of the patient and discussion of the patient with the admitting physicians. Diagnosis Primary Impression: STEMI (ST elevation myocardial infarction) Qualified Code: I21.3 - ST elevation myocardial infarction (STEMI), unspecified artery Admitting Information Admitting Physician Requests: Admit Willa Shelley MD Nov 12, 2016 20:19
[2016-11-12 20:30] LABS: BASOPHIL % 0.7 % (0.0-2.0); EOSINOPHIL # 0.2 TH/MM3 (0-0.4); EOSINOPHIL % 4.2 % (0.0-4.0); HEMATOCRIT 35.4 % (35.0-46.0); I-STAT POTASSIUM 3.7 MMOL/L (3.5-4.9); I-STAT SODIUM 137 MMOL/L (138-146); LYMPH % 21.3 % (9.0-44.0); LYMPHOCYTE # 0.9 TH/MM3 (1.0-4.8); MEAN CELL VOLUME 99.6 FL (80.0-100.0); MEAN CORPUSCULAR HEMOGLOBIN 33.4 PG (27.0-34.0); MEAN CORPUSCULAR HGB CONC 33.5 % (32.0-36.0); MONO % 3.6 % (0.0-8.0); NEUT % 70.2 % (16.0-70.0); PLATELET COUNT 89 TH/MM3 (150-450); RED BLOOD COUNT 3.56 MIL/MM3 (4.00-5.30); RED CELL DISTRIBUTION WIDTH 17.8 % (11.6-17.2); WHITE BLOOD COUNT 4.3 TH/MM3 (4.0-11.0)
[2016-11-12 20:38] LABS: INTERNATIONAL NORMALIZED RATIO 1.1 RATIO; PROTHROMBIN TIME - PATIENT 12.7 SEC (9.8-11.6)
[2016-11-12] MEDS ORDERED: HEPARIN-NS/PF INJ 500 ML ONE (20:40)
[2016-11-12] MEDS ORDERED: NITROGLYCERIN INJ 5 ML ONE (20:41)
[2016-11-12] MEDS ORDERED: HEPARIN SODIUM - IV 10,000 UNITS/10 ML VIAL ONE (20:41)
[2016-11-12] MEDS ORDERED: MIDAZOLAM HCL 2 MG/2 ML VIAL ONE (20:41)
[2016-11-12 20:46] LABS: APTT (PATIENT) 25.7 SEC (24.3-30.1)
[2016-11-12 20:50] LABS: MAGNESIUM 1.5 MG/DL (1.5-2.5)
[2016-11-12 20:51] LABS: CREATINE KINASE 50 U/L (26-192)
[2016-11-12 20:56] LABS: HEMO FLAGS AUTO DIFF
[2016-11-12] MEDS ORDERED: TEMAZEPAM 15 MG CAP PO PRN (21:00)
--- NOTE | 2016-11-12 21:05 | RADRPT ---
EXAM DATE/TIME: 11/12/2016 19:59 [facility] COMPARISON: No previous studies available for comparison. INDICATIONS : Stemi Alert. MEDICAL HISTORY : Cardiovascular disease. Hypertension. Ulcers. SURGICAL HISTORY : Appendectomy. Cholecystectomy.Coronary artery stent. ENCOUNTER: Initial ACUITY: 1 day PAIN SCORE: 4/10 LOCATION: Bilateral chest FINDINGS: A single view of the chest demonstrates cardiomegaly with minimal basal airspace disease, probably at electasis. No significant effusion. No pneumothorax. Tortuous aorta. CONCLUSION: 1. Cardiomegaly with minimal basal airspace disease. Vj Ac MD on November 12, 2016 at 21:02 Board Certified Radiologist. This report was verified electronically.
[2016-11-12] MEDS ORDERED: METOCLOPRAMIDE HCL 10 MG/2 ML VIAL IV PRN (21:15)
[2016-11-12] MEDS ORDERED: LIDOCAINE HCL 1% 50 ML VIAL INFIL PRN (21:15)
[2016-11-12] MEDS ORDERED: ONDANSETRON HCL 4 MG/2 ML VIAL IV PRN (21:15)
[2016-11-12] MEDS ORDERED: ATROPINE SULFATE 1 MG/ML VIAL IV PRN (21:15)
[2016-11-12] MEDS ORDERED: LIDOCAINE 2% JELLY 30 ML TUBE TOP PRN (21:15)
[2016-11-12] MEDS ORDERED: ACETAMINOPHEN 325 MG TAB PO PRN (21:15)
[2016-11-12] MEDS ORDERED: MORPHINE SULFATE 4 MG/ML INJ IV PUSH PRN (21:15)
[2016-11-12] MEDS ORDERED: SODIUM CHLOR 0.9% 250 ML INJ 250 ML IV PRN (21:15)
[2016-11-12] MEDS ORDERED: LORazepam 2 MG/ML VIAL IV PRN (21:15)
[2016-11-12] MEDS ORDERED: MISC INFORMATION XX ONE (21:15)
[2016-11-12] MEDS ORDERED: BACITRACIN OINT 0.9 GM PKT TOP ONE (21:15)
--- NOTE | 2016-11-12 21:19 | CATHPROC ---
[facility] HIS Report Study Information Study Number Admission Scheduled Start Study Start [id number] Nov 12 2016 6:45PM 11/12/2016 Nov 12 2016 8:32PM [place] Service Cardiac Catheterization Admit Source Facility Department Emergency department [facility] - [facility] Physician and Clinical Staff Initial Hayder Medel Hatch SupervisorJose F Avila,JAIME Hatch Supervisor Radhika Ibarra RN Other cathlab, cathlab Recorder Roland Patton RCIS(BS) Scrub Guillermo Banegas RT(R) Procedures Performed Procedure Location (Site) Vessel Name Angiogram LV Asc. Aorta (A) Angiogram LV LV Ventricle Coronary Angiograms LCA Left Coronary Coronary Angiograms RCA Right Coronary Equipment Time Plater Apprentice Description Size Mfg Part Number Used/Scraped TRANSDUCER, TRUWAVE [id number] 20:48 LAND IBARRA * Used W/STOCKCOCK *[id number] *[id number] PIGTAIL ANG. 145 INFINITI [id number] CATHETER *[id number] *[id number] 21:15 DAIG/ST. KI MEDICAL ANGIOSEAL, FR6 VIP FR 6 Used *[id number] 20:48 CARDFREE INDUSTRIES PACK, CCL CUSTOM * Used *[id number] 20:48 [email or web address] SUPPORT, ARTERIAL ADULT [id number] Used [id number] 20:48 CARDFREE PACER PEN, SKIN DUAL W/ RULER * Used *[id number] SHEATH, FR6 RADIAL PRELUDE 20:48 Sensitive Object MEDICAL FR 6 [id number] Used EASE 11CM [id number] 20:51 Sensitive Object MEDICAL SHEATH, FR6.5 PRELUDE 11CM FR 6.5 [id number] Used *[id number] 20:48 Sensitive Object MEDICAL WIRE, EXCHANGE 260CM 3MMJ 260CM Used *[id number] 20:48 NYCOMED OMNIPAQUE, 350 MG, 150ML 150ML [id number] Used 21:02 NYCOMED OMNIPAQUE, 350 MG, 50ML 50ML [id number] Used 21:03 NYCOMED OMNIPAQUE, 350 MG, 50ML 50ML [id number] Used [id number] 20:48 [place] MEDICAL BLANKET,WARM AIR CCL * Used *[id number] Equipment Model, Serial, Lot Number and Expiration Data Description Model Number Serial Number Lot Number Expiration Date SHEATH, FR6.5 PRELUDE 11CM [id number] 09-05-2019 History: Current Medications Medication Dosage/Unit Route Frequency Last Date/Time Taken LISINOPRIL ASA History: Allergies Allergy Reaction No Known Allergies History: Risk Factors Family History of Hypertension Dyslipidemia Previous SC Previous Heart Failure Premature CAD Yes Yes No No No Prior Valve Prior PCI Prior PCIDate Prior CABG Surgery No Yes 04/07/2004 No Cerebrovascular Peripheral Artery Chronic Lung On Dialysis Diabetes Disease Disease Disease No No No No No History: Symptoms/Diagnosis Selection Items Chest pain History: Stress Tests Stress or Imaging Studies Performed No History: Other Disease Selection Items HTN History: SC/CV Data Previous Cath Date 04/07/2004 History: Other Current Smoker No Labs Hgb (g/dl) Hct (%) 11.60-17.00 35.00-51.00 12.9 38 Glucose (mg/dl) BUN (mg/dl) Creatinine (mg/dl) BUN:Creatinine (1:x) 74.00-106.00 7.00-18.00 0.50-1.30 10.00-20.00 92 6 0.9 6.7 Na (meq/l) K (meq/l) Cl (meq/l) 136.00-145.00 3.50-5.10 98.00-107.00 137 3.7 96 CPK-MB (ng/ML) 0.50-3.60 Not Drawn Medication Medication Total Dose (Bolus/Oral) Medication Total Dosage/Unit 1% XYLOCAINE 20 mL FENTANYL 50 mcg VERSED 2 mg Medications (Bolus/Oral) Medication Time Given Dosage/Unit Administered By Reason VERSED 11/12/2016 8:50:05 PM 1 mg Radhika Ibarra 1 mg VERSED given in lab by Radhika Ibarra, RN in Right Forearm via Peripheral IV. Ordered by Hayder Carias. FENTANYL 11/12/2016 8:50:19 PM 25 mcg Radhika Ibarra 25 mcg FENTANYL given in lab by Radhika Ibarra, JAIME in Right Forearm via Peripheral IV. Ordered by Hayder Gunn. 1% XYLOCAINE 11/12/2016 8:51:00 PM 20 mL Hayder Gunn 20 mL 1% XYLOCAINE given in lab by Hayder Gunn in Right Groin via Subcutaneous. VERSED 11/12/2016 9:00:00 PM 1 mg Ibarra, Radhika 1 mg VERSED given in lab by Radhika Ibarra, RN in Right Forearm via Peripheral IV. Ordered by Hayder Carias. FENTANYL 11/12/2016 9:01:02 PM 25 mcg Radhika Ibarra 25 mcg FENTANYL given in lab by Radhika Ibarra RN in Right Forearm via Peripheral IV. Ordered by Hayder Gunn. Initial Case Assessment Cardiovascular HR Rhythm NIBP Chest Pain 80 sinus 181/97 0 Edema Present Skin color Skin None Normal Warm Dry Circulatory - Right Pulses Dorsalis Pedis Femoral Radial 2 2 2 Scale (0,1,2,3,4,d) Scale (0,1,2,3,4,d) Neurological State Oriented to time-place- Alert Moves all extremities person Respiration - General Respiration Rate SpO2 (%) O2 (lpm) (B/min) 15 98 2 Final Case Assessment Cardiovascular HR Rhythm NIBP Chest Pain 77 sinus 150/84 0 Edema Present Skin color Skin None Normal Warm Dry Circulatory - Right Pulses Dorsalis Pedis Femoral Radial 2 2 2 Scale (0,1,2,3,4,d) Scale (0,1,2,3,4,d) Neurological State Oriented to time-place- Alert Moves all extremities person Respiration - General Respiration Rate SpO2 (%) O2 (lpm) (B/min) 16 99 2 Chronological Log Time Study Chronological Log 20:36:01 Patient arrived via Bed. 20:36:02 Patient Name, D.O.B, / Armband Verified By R.N. 20:36:02 Consent signed by the physician and the patient and verified by the [facility] staff. 20:36:02 Pre-op and post- op instructions given; patient acknowledges understanding of instructions. 20:36:03 Verbal Stimulation=2 Physical Stimulation=2 Airway=2 Respiration=2 TOTAL=8. (0=absent, 1=li mited, 2=present) 20:36:04 Presedation assessment performed by [facility] RN. 20:36:04 Allens test performed on the right radial and ulnar artery. 20:36:05 Immediate Presedation assesment performed by physician. 20:36:05 Patient has been NPO for More than 6Hrs. 20:36:06 Skin Breakdown- none per patient 20:36:07 Patient Warmer Placed on the Table. 20:36:07 Disposable Defibrillator Pads Placed On Patient. 20:36:08 Lupillo Prominences Protected 20:36:09 A # 20 IV was noted in the Forearm (right). Grade = 0 20:36:11 History and physical on the chart or being dictated. 20:42:02 MD arrived. Vitals capture started with the following parameters, Patient=Adult, Interval=5 min, Initial Pr revonm=399 mmHg, 20:43:28 Deflation Rate=5 mmHg, Cuff placed on Right Arm 20:44:48 HR=92 bpm, DOHF=351/97 mmhg, SpO2=97.0 %, Resp=11 B/min, Pain=7, Ericka=10, Valdez=2 Assessment: Initial Case, HR=80 BPM, Rhythm=sinus, EOKM=229/97 mmhg, Chest Pain=0, Edema=None, Color=Normal, Skin = Warm, Dry 20:45:22 Right Pulses: Tremaine Ped=2, Femoral=2, Radial=2 Neurological: State=Alert, Ox3, CROSS Respiration: Resp=15 B/min, SpO2=98 %, O2=2 lpm 20:45:23 Right Radial and groin(s) prepped with 2% chlorhexidine, and with a 3 min. waiting time. 20:48:16 Contrast Scanned 20:48:17 Immediate Presedation assesment performed by physician. 20:49:10 HR=74 bpm, HERX=066/89 mmhg, SpO2=99.0 %, Resp=12 B/min, Pain=7, Ericka=10, Valdez=2 20:49:24 Pressure channel 1 zeroed. 20:49:25 Reference ECG taken Time Out. Correct patient, correct procedure,correct physician, ,power injector not loaded with contrast with surgical 20:49:42 team present. Time Out Concurred by MD, individual staff in procedure 20:49:57 Case Start 20:50:05 1 mg VERSED given in lab by Radhika Ibarra, RN in Right Forearm via Peripheral IV. Order ed by Hayder Gunn. 25 mcg FENTANYL given in lab by Radhika Ibarra, RN in Right Forearm via Peripheral IV. Order ed by Luis A 20:50:19 Hayder. 20:51:00 20 mL 1% XYLOCAINE given in lab by Hayder Gunn in Right Groin via Subcutaneous. 20:52:36 Access site was Right Femoral Artery. 20:52:40 A SHEATH, FR6.5 PRELUDE 11CM FR 6.5 was advanced into the Fem Art (right) using the Percuta neous technique. A JR 4.0 INFINITI CATHETER FR 6 was advanced over a wire. OMNIPAQUE, 350 MG, 150ML 150ML was us ed for 20:53:01 injections. Recorded Pressure: LV, HR=63, Condition=Condition 1 20:53:46 (Left Ventricle) LV 175/11/15 Recorded Pressure: LV, Ao, HR=71, Condition=Condition 1 20:53:53 (Left Ventricle) LV 182/8/26, (Aorta) Ao 166/61/109 20:54:11 HR=70 bpm, UEIW=147/83 mmhg, SpO2=98.0 %, Resp=16 B/min, Pain=7, Ericka=10, Valdez=2 20:54:35 The RCA was injected and visualized at various angles. OMNIPAQUE, 350 MG, 150ML 150ML used . After removing the current catheter a XBLAD 3.5 GUIDE CATHETER FR 6 was advanced over a WIRE, E XCHANGE 20:54:42 260CM 3MMJ 260CM. 20:55:44 The LCA was injected and visualized at various angles. OMNIPAQUE, 350 MG, 150ML 150ML used . Recorded Pressure: Ao, HR=74, Condition=Condition 1 20:58:14 (Aorta) Ao 165/75/112 20:59:08 HR=73 bpm, FOFJ=416/80 mmhg, SpO2=98.0 %, Resp=11 B/min, Pain=7, Ericka=10, Valdez=2 After removing the current catheter a PIGTAIL ANG. 145 INFINITI CATHETER FR 6 was advanced over a WIRE, 20:59:13 EXCHANGE 260CM 3MMJ 260CM. 21:00:00 1 mg VERSED given in lab by Radhika Ibarra RN in Right Forearm via Peripheral IV. Order ed by Hayder Gunn. 25 mcg FENTANYL given in lab by Radhika Ibarra, JAIME in Right Forearm via Peripheral IV. Order ed by Luis A 21:01:02 Hayder. 21:02:23 The LV was injected at 10 cc/sec for a total of 30. OMNIPAQUE, 350 MG, 50ML 50ML used. 21:03:08 The Asc. Aorta (A) was injected at 20 cc/sec for a total of 40. OMNIPAQUE, 350 MG, 50ML 50M L used. 21:03:32 Catheter was removed Assessment: Final Case, HR=77 BPM, Rhythm=sinus, IDAO=828/84 mmhg, Chest Pain=0, Edema=None, Color=Normal, Skin = Warm, Dry 21:03:56 Right Pulses: Tremaine Ped=2, Femoral=2, Radial=2 Neurological: State=Alert, Ox3, CROSS Respiration: Resp=16 B/min, SpO2=99 %, O2=2 lpm 21:04:07 HR=77 bpm, JRAJ=402/84 mmhg, SpO2=98.0 %, Resp=20 B/min, Pain=7, Ericka=10, Valdez=2 21:04:33 Catheter(s) removed without difficulty 21:04:42 Activated Clotting Time Drawn 21:04:52 Catheter(s) removed without difficulty 21:04:54 No case complications noted. 21:04:55 Cine recording checked. 21:04:56 Bedside Report will be given. 21:04:58 Contrast Scanned 21:05:11 Verbal Stimulation=2 Physical Stimulation=2 Airway=2 Respiration=2 TOTAL=8. (0=absent, 1=li mited, 2=present) 21:09:06 HR=71 bpm, YEWD=074/80 mmhg, SpO2=98.0 %, Resp=19 B/min, Pain=7, Ericka=10, Valdez=2 21:14:07 HR=73 bpm, HJTA=407/81 mmhg, SpO2=99.0 %, Resp=16 B/min, Pain=7, Ericka=10, Valdez=2 21:14:15 An injection in the Fem Art (right) was made through the SHEATH, FR6.5 PRELUDE 11CM FR 6.5. 21:14:29 ANGIOSEAL, FR6 VIP FR 6 placement in the Fem Art (right) 21:14:37 Case End 21:14:42 Sterile dressing applied to site 21:19:04 Vitals capture stopped. End Study - Contrast Media Used In Study Contrast Total Opened (mL) Total Used (mL) Total Wasted (mL) Omnipaque 100 100 0 End Study - Maximum Contrast Load Max Contrast Load (mL) 344.4 End Study - Radiation Exposure Fluoro Time (minutes) 2.2 End Study - Patient Disposition Complications Transferred To Interventional Outcome No Telemetry Bed No attempt made
[2016-11-12] MEDS ORDERED: cloNIDine HCL 0.2 MG TAB PO PRN (21:30)
[2016-11-12 21:53] LABS: SCAN/DIFF AUTO DIFF CONFIRMED
[2016-11-12 21:54] LABS: PLATELET ESTIMATE SMEAR LOW (NORMAL); PLATELET MORPHOLOGY NORMAL (NORMAL)
[2016-11-12] MEDS: oxyCODONE/ACETAMINOPHEN 10 MG/325 MG TAB PO PRN (22:00)
--- NOTE | 2016-11-12 22:59 | MB ---
cc: ROGER CLEMENTS MD DATE OF CONSULTATION 11/12/[address] [place]. HISTORY OF PRESENT ILLNESS A 76-year-old female who presented to the emergency department with chest pain. Apparently, she was at the [facility] yesterday and was discharged. She has a history of coronary disease with a prior percutaneous intervention. She intracranial cranial pressure was 7-8/10 She came into the emergency department, had ST-elevation early anterior precordial leads with deep T-wave inversions which seem to be new compared her prior electrocardiogram. She had continued ongoing symptoms so [facility]-[place]vation [place] protocol was initiated. PAST MEDICAL HISTORY 1. Coronary disease, 2. Tobacco abuse 3. Alcohol abuse, 4. Liver disease. 5. Esophageal varices 6. Hypertension 7. Hypothyroidism 8. Anxiety/depression 9. EGD and colonoscopy. SOCIAL HISTORY Alcohol usage. She drank a pint of liquor earlier today. half smokes half-a-pack a day. Denies any substance use. ALLERGIES NO KNOWN DRUG ALLERGIES. MEDICATIONS 1. Bactrim 2. Levothyroxine 3. Omeprazole 4. Citalopram 5. Lisinopril 6. Coreg 7. Joleen-Colace 8. Lactulose. 9. Potassium. 10. Lasix, 11. Isosorbide. REVIEW OF SYSTEMS 12 point review of systems was performed, negative unless otherwise noted in history of present illness. PHYSICAL EXAMINATION VITAL SIGNS: Temperature is 97, pulse is 75, blood pressure 174/94 mmHg. GENERAL: Alert and oriented x3 in mild distress. HEENT: Pupils reactive to light and accommodation, extraocular movements are intact. No elevation in jugular venous distension. No thyromegaly, no lymphadenopathy. No carotid bruits. LUNGS: Clear to auscultation bilaterally. CARDIOVASCULAR: Regular rate and rhythm without murmurs, rubs or gallops. ABDOMEN: Nontender, nondistended. Good bowel sounds. No hepatosplenomegaly. EXTREMITIES: No clubbing, cyanosis or edema. Good peripheral pulses. Cranial nerves intact. Motor sensory grossly intact. LABORATORY DATA Pending. ASSESSMENT 1. ST-elevation [place] 2. History of coronary disease. PLAN Risks, benefits and alternatives discussed with the patient. The patient understood, consent to proceed. We will plan to take to the cardiac catheterization lab emergently given EKG changes ongoing symptoms. acute MD STEPHANY Mclaughlin /9:18 PM /10:45 PM
--- NOTE | 2016-11-12 23:15 | MA ---
cc: HAYDER CLEMENTS MD DATE 11/12/[address]-elevation [place]. PROCEDURE PERFORMED 1. Fluoroscopy with interpretation. 2. Coronary angiography. 3. Left heart catheterization. 4. Left ventriculography. 5. Ascending aortography. 6. Coronary angiography. METHOD The risks, benefits and alternatives discussed with the patient. The patient understood and consented to the procedure. PROCEDURE IN DETAIL The patient brought to the catheterization lab and placed on the catheterization table. Right groin prepped and draped in sterile fashion. Right groin was anesthetized with 2% lidocaine. Right common femoral was cannulated and a 6-Estonian 7 centimeter sheath was placed without difficulty. LEFT HEART CATHETERIZATION Intraoperative hemodynamics measured at 182/20 mmHg. LEFT VENTRICULOGRAPHY Left ventriculography performed right anterior oblique view using a 30 cc contrast injection good opacification. Left ventricular ejection fraction visually estimated at 40%. There is regional anterolateral anterior, apical, inferoapical hypokinesis and there is hypercontractile posterior, anterobasal segments. CORONARY ANGIOGRAPHY 1. Left main coronary has minor luminal irregularities. 2. Left anterior descending coronary proximally has minor luminal irregularities. Mid segment has minor luminal irregularities and quite tortuous. Diagonal branch has minor luminal irregularities. 3. There is a stent in the circumflex which is widely patent. The second obtuse marginal has a 50% stenosis present. 4. Right coronary is a dominant vessel giving rise to a posterior descending branch. Right coronary has some minor luminal irregularities. 5. Ascending aortography. Ascending aortography performed in the left anterior oblique using a 30 cc contrast injection. Ascending aorta is mildly dilated with no evidence of dissection. CONCLUSION 1. Takotsubo cardiomyopathy. 2. Mild nonobstructive coronary disease. 3. Mildly dilated ascending aorta. 4. Mildly elevated left-sided filling pressure. PLAN The patient will be monitored closely for any postprocedure complication. Will follow up with a 2-D echocardiogram in addition to optimal medical management. Hopefully discharge in the next 24 to 48 hours. Hayder Clements MD SM/EO /9:14 PM /10:59 PM
[2016-11-13] VITALS (28 sets, daily range): BP systolic 100–159; BP diastolic 47–78; PULSE 51–72; RESP 12–20; TEMP 97.8–99.9; O2SAT 92–94
[2016-11-13] MEDS: oxyCODONE/ACETAMINOPHEN 10 MG/325 MG TAB PO PRN (03:36)
[2016-11-13 05:51] LABS: AUTOMATED NEUTROPHIL # 1.7 TH/MM3 (1.8-7.7); BASOPHIL % 0.8 % (0.0-2.0); EOSINOPHIL # 0.1 TH/MM3 (0-0.4); HEMATOCRIT 26.4 % (35.0-46.0); LYMPH % 25.2 % (9.0-44.0); LYMPHOCYTE # 0.7 TH/MM3 (1.0-4.8); MEAN CORPUSCULAR HGB CONC 34.3 % (32.0-36.0); MONO % 5.2 % (0.0-8.0); NEUT % 64.8 % (16.0-70.0); PLATELET COUNT 61 TH/MM3 (150-450); RED BLOOD COUNT 2.67 MIL/MM3 (4.00-5.30); RED CELL DISTRIBUTION WIDTH 17.9 % (11.6-17.2); WHITE BLOOD COUNT 2.6 TH/MM3 (4.0-11.0)
[2016-11-13 05:58] LABS: HEMO FLAGS DIFF FINAL
[2016-11-13 06:22] LABS: BICARBONATE 28.8 MEQ/L (21.0-32.0); HDL CHOLESTEROL 34.7 MG/DL (40.0-60.0); POTASSIUM 3.1 MEQ/L (3.5-5.1)
--- NOTE | 2016-11-13 08:16 | EKG ---
Date Performed: 11/13/2016 Time Performed: 06:06:14 PTAGE: 76 years EKG: Sinus bradycardia Possible septal infarct - age undetermined Anterior T wave inversions con cerning for ischemia Correlate Clinincally Abnormal ECG PREVIOUS TRACING : 11/12/2016 19.40 DOCTOR: Jorge Friedman Interpretating Date/Time 11/13/2016 08:14:14
--- NOTE | 2016-11-13 08:25 | EKG ---
Date Performed: 11/12/2016 Time Performed: 19:40:56 PTAGE: 76 years EKG: Sinus rhythm SEPTAL MYOCARDIAL INFARCTION ACUTE [place] PREVIOUS TRACING : 11/10/2016 12.49 DOCTOR: Jorge Friedman Interpretating Date/Time 11/13/2016 08:23:45
--- NOTE | 2016-11-13 08:59 | PD.CARD.PN ---
Subjective Subjective Remarks admits to mild upper epigastric discomfort and fatigue. Chest pain resolved. No SOB or palpitations. (Kristin Phillips) Objective Medications Current Medications Medications (Trade) Dose Ordered Sig/Ebonie Route Start Time Stop Time Status Last Admin Sodium Chloride 2 ml 2 ml UNSCH PRN IVF 11/12/16 20:15 (Nitroglycerin-Dextrose Inj) 250 ml @ 0 mls/hr TITRATE IV 11/12/16 20:15 11/12/16 20:18 (Xylocaine 2% Jelly) 1 applic UNSCH PRN TOP 11/12/16 21:15 (Tylenol) 325 mg Q4H PRN PO 11/12/16 21:15 (Percocet 5-325 Mg) 1 tab Q4H PRN PO 11/12/16 21:15 (Percocet 10-325 Mg) 1 tab Q4H PRN PO 11/12/16 21:15 11/13/16 03:36 (Morphine Inj) 2 mg Q30M PRN IV PUSH 11/12/16 21:15 11/12/16 22:00 (Restoril) 15 mg HS PRN PO 11/12/16 21:00 11/12/16 22:05 (Aspirin Chew) 81 mg DAILY PO 11/13/16 09:00 (Ativan Inj) 0.5 mg UNSCH PRN IV 11/12/16 21:15 11/13/16 21:14 Atropine Sulfate 0.5 mg 0.5 mg UNSCH PRN IV 11/12/16 21:15 (NS 250 ml Inj) 250 ml @ 500 mls/hr ONCE PRN IV 11/12/16 21:15 11/13/16 21:14 (Reglan Inj) 10 mg Q4H PRN IV 11/12/16 21:15 (Zofran Inj) 4 mg Q4H PRN IV 11/12/16 21:15 (Xylocaine 1% Inj (50 ml)) 10 ml UNSCH PRN INFIL 11/12/16 21:15 11/13/16 21:14 (Catapres) 0.2 mg Q6H PRN PO 11/12/16 21:30 Vital Signs / I&O Vital Signs Date Time Temp Pulse Resp B/P Pulse Ox O2 Delivery O2 Flow Rate FiO2 11/13/16 06:00 62 11/13/16 05:00 58 11/13/16 04:00 58 11/13/16 03:00 55 11/13/16 03:00 97.8 69 12 122/59 93 11/13/16 02:00 60 11/13/16 01:00 58 11/13/16 00:00 58 11/12/16 23:00 97.3 65 12 137/68 93 11/12/16 23:00 60 11/12/16 22:00 72 11/12/16 21:30 67 11/12/16 21:30 97.8 63 16 148/97 96 11/12/16 20:05 98 Nasal Cannula 2.00 11/12/16 20:05 75 20 174/94 98 Room Air 11/12/16 20:05 98 2.00 11/12/16 18:47 97.8 86 17 174/81 96 I/O 11/12/16 11/12/16 11/12/16 11/13/16 11/13/16 11/13/16 06:59 14:59 22:59 06:59 14:59 22:59 Intake Total 1240 ml Output Total 400 ml Balance 840 ml Intake Oral 240 ml IV Total 1000 ml Output Urine Total 400 ml # Bowel Movements 0 Physical Exam HEAD: Atraumatic. Normocephalic. EYES: Pupils equal and round. No scleral icterus. No injection or drainage. ENT: No nasal bleeding or discharge. Mucous membranes pink and moist. NECK: Trachea midline. No JVD. CARDIOVASCULAR: Regular rate and rhythm. No murmurs RESPIRATORY: No accessory muscle use. Clear to auscultation. Breath sounds equal bilaterally. GASTROINTESTINAL: Abdomen soft, non-tender, nondistended MUSCULOSKELETAL: Extremities without clubbing, cyanosis, or edema. No obvious deformities. NEUROLOGICAL: Awake and alert. No obvious cranial nerve deficits. Normal speech. PSYCHIATRIC: Appropriate mood and affect; insight and judgment normal. Laboratory Laboratory Tests Test 11/12/16 11/13/16 20:06 04:35 White Blood Count 4.3 TH/MM3 2.6 TH/MM3 Red Blood Count 3.56 MIL/MM3 2.67 MIL/MM3 Hemoglobin 11.9 GM/DL 9.1 GM/DL Bedside Hemoglobin 12.9 G/DL Hematocrit 35.4 % 26.4 % Bedside Hematocrit 38.0 % Mean Corpuscular Volume 99.6 FL 99.0 FL Mean Corpuscular Hemoglobin 33.4 PG 34.0 PG Mean Corpuscular Hemoglobin 33.5 % 34.3 % Concent Red Cell Distribution Width 17.8 % 17.9 % Platelet Count 89 TH/MM3 61 TH/MM3 Mean Platelet Volume 8.6 FL 9.4 FL Neutrophils (%) (Auto) 70.2 % 64.8 % Lymphocytes (%) (Auto) 21.3 % 25.2 % Monocytes (%) (Auto) 3.6 % 5.2 % Eosinophils (%) (Auto) 4.2 % 4.0 % Basophils (%) (Auto) 0.7 % 0.8 % Neutrophils # (Auto) 3.0 TH/MM3 1.7 TH/MM3 Lymphocytes # (Auto) 0.9 TH/MM3 0.7 TH/MM3 Monocytes # (Auto) 0.2 TH/MM3 0.1 TH/MM3 Eosinophils # (Auto) 0.2 TH/MM3 0.1 TH/MM3 Basophils # (Auto) 0.0 TH/MM3 0.0 TH/MM3 CBC Comment AUTO DIFF DIFF FINAL Differential Comment AUTO DIFF CONFIRMED Platelet Estimate LOW Platelet Morphology Comment NORMAL Prothrombin Time 12.7 SEC Prothromb Time International 1.1 RATIO Ratio Activated Partial 25.7 SEC Thromboplast Time Bedside Sodium 137 MMOL/L Bedside Potassium 3.7 MMOL/L Bedside Chloride 96 MMOL/L Bedside Blood Urea Nitrogen 6 MG/DL Bedside Creatinine 0.9 MG/DL Bedside Glucose 92 MG/DL Calcium Level 8.5 MG/DL 7.5 MG/DL Magnesium Level 1.5 MG/DL Total Creatine Kinase 50 U/L 27 U/L Troponin I LESS THAN 0.02 NG/ML B-Type Natriuretic Peptide 1863 PG/ML Sodium Level 137 MEQ/L Potassium Level 3.1 MEQ/L Chloride Level 100 MEQ/L Carbon Dioxide Level 28.8 MEQ/L Anion Gap 8 MEQ/L Blood Urea Nitrogen 7 MG/DL Creatinine 0.80 MG/DL Estimat Glomerular Filtration 70 ML/MIN Rate Random Glucose 69 MG/DL Triglycerides Level 81 MG/DL Cholesterol Level 123 MG/DL LDL Cholesterol 72 MG/DL HDL Cholesterol 34.7 MG/DL Cholesterol/HDL Ratio 3.54 RATIO Imaging Last Impressions Chest X-Ray 11/12/162007 Signed Impressions: Service Date/Time: Saturday, November 12, 2016 19:59 - CONCLUSION: 1. Cardiomegaly with minimal basal airspace disease. Vj Ac MD (Kristin Phillips) Assessment and Plan Problem List: (1) STEMI (ST elevation myocardial infarction) Assessment and Plan 76 yo WF with history of CAD and prior stenting presented yesterday with acute chest pain with STEMI, urgent cath showed mild CAD, patent stent and takotsubo cardiomyopathy. +anemia, + thrombocytopenia cardiomyopathy- Takotsubo. cardiac cath shows mild CAD, patent stent. echo pending, vitals stable. cont current medications discharge likely today or tomorrow. (Kristin Phillips) Assessment and Plan med mgt asa statin add low dose acei 2d echo today. monitor salt and weight DC planning FU in OPD for 2d echo in 2 months (Hayder Gunn MD) Problem Qualifiers (1) STEMI (ST elevation myocardial infarction): Qualified Code: I21.3 - ST elevation myocardial infarction (STEMI), unspecified artery Kristin Phillips Nov 13, 2016 08:59 Hayder Gunn MD Nov 13, 2016 09:05
[2016-11-13] MEDS ORDERED: ASPIRIN 81 MG CHEW TAB PO SCH (09:00)
[2016-11-13] MEDS ORDERED: PILL SPLITTER OTHER PRN (09:15)
[2016-11-13] MEDS ORDERED: LISINOPRIL 5 MG TAB PO SCH (09:15)
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
[2016-11-13] MEDS ORDERED: SODIUM CHLORIDE 0.9% FLUSH 10 ML FLUSH IV FLUSH PRN (12:00)
[2016-11-13] MEDS ORDERED: NALOXONE HCL 0.4 MG/ML AMP IV PRN (12:00)
[2016-11-13] MEDS: SODIUM CHLORIDE 0.9% FLUSH 10 ML FLUSH IV FLUSH SCH ×2 (12:00→20:51)
[2016-11-13] MEDS ORDERED: RESP: ALBUTEROL 2.5 MG/IPRATROPIUM 0.5 MG NEB (PRN) NEB (12:00)
[2016-11-13] MEDS ORDERED: FLUMAZENIL 0.5 MG/5 ML VIAL IV PUSH PRN (12:15)
[2016-11-13] MEDS ORDERED: LORazepam 2 MG/ML VIAL IV PUSH PRN ×4 (12:15)
[2016-11-13] MEDS ORDERED: LORazepam 2 MG TAB PO PRN (12:15)
[2016-11-13] MEDS: LACTULOSE SYRUP 20 GM/30 ML CUP PO SCH (12:15)
[2016-11-13] MEDS: cefTRIAXone INJ 1,000 MG in SODIUM CHLORIDE 0.9% INJ 100 ML IV SCH (13:06)
[2016-11-13] MEDS: CITALOPRAM HYDROBROMIDE 20 MG TAB PO SCH (13:06)
[2016-11-13 13:42] LABS: BLOOD, URINE NEG (NEG); COMMENT (UR) CULT NOT INDICATED; CULTURE IF INDICATED CULT NOT INDICATED; GLUCOSE,URINE NEG (NEG); HYALINE CAST, URINE 3 /lpf (RARE); KETONE, URINE TRACE mg/dL (NEG); NITRITE,URINE NEG (NEG); SQUAMOUS EPITHELIAL CELL URINE 1 /hpf (0-5); URINE COLOR YELLOW (YELLW/STRAW)
[2016-11-13] MEDS: LORazepam 1 MG TAB PO PRN ×2 (16:57→22:33)
[2016-11-14] VITALS (31 sets, daily range): BP systolic 119–161; BP diastolic 59–85; PULSE 55–88; RESP 16–20; TEMP 97.5–99.5; O2SAT 92–97
[2016-11-14] MEDS: LORazepam 1 MG TAB PO PRN ×2 (04:27→21:40)
[2016-11-14 06:57] LABS: AUTOMATED NEUTROPHIL # 1.7 TH/MM3 (1.8-7.7); BASOPHIL % 1.2 % (0.0-2.0); EOSINOPHIL # 0.1 TH/MM3 (0-0.4); EOSINOPHIL % 4.4 % (0.0-4.0); HEMATOCRIT 27.3 % (35.0-46.0); LYMPH % 27.5 % (9.0-44.0); LYMPHOCYTE # 0.7 TH/MM3 (1.0-4.8); MEAN CELL VOLUME 99.1 FL (80.0-100.0); MEAN CORPUSCULAR HEMOGLOBIN 34.4 PG (27.0-34.0); MEAN CORPUSCULAR HGB CONC 34.7 % (32.0-36.0); MONO % 5.4 % (0.0-8.0); NEUT % 61.5 % (16.0-70.0); PLATELET COUNT 54 TH/MM3 (150-450); RED BLOOD COUNT 2.76 MIL/MM3 (4.00-5.30); RED CELL DISTRIBUTION WIDTH 17.8 % (11.6-17.2); WHITE BLOOD COUNT 2.7 TH/MM3 (4.0-11.0)
[2016-11-14 07:02] LABS: HEMO FLAGS AUTO DIFF
[2016-11-14 07:18] LABS: BICARBONATE 25.1 MEQ/L (21.0-32.0); POTASSIUM 3.3 MEQ/L (3.5-5.1)
[2016-11-14 07:45] LABS: PLATELET ESTIMATE SMEAR LOW (NORMAL); PLATELET MORPHOLOGY NORMAL (NORMAL)
[2016-11-14 07:46] LABS: SCAN/DIFF AUTO DIFF CONFIRMED
--- NOTE | 2016-11-14 08:12 | PD.CARD.PN ---
Subjective Subjective Remarks Still a little weak. No chest pain. Feels mildly dyspneic Objective Vital Signs / I&O Vital Signs Date Time Temp Pulse Resp B/P Pulse Ox O2 Delivery O2 Flow Rate FiO2 11/14/16 07:00 62 11/14/16 06:00 64 11/14/16 05:00 64 11/14/16 04:00 62 11/14/16 03:58 99.5 65 20 154/62 97 11/14/16 03:00 62 11/14/16 02:00 66 11/14/16 01:00 64 11/14/16 00:00 67 11/14/16 00:00 99.0 62 20 144/75 94 11/13/16 23:00 56 11/13/16 22:00 58 11/13/16 21:00 58 11/13/16 20:00 68 11/13/16 19:46 94 21 11/13/16 19:19 99.9 59 20 159/78 94 11/13/16 19:19 66 11/13/16 18:00 60 11/13/16 17:00 64 11/13/16 16:00 56 11/13/16 15:30 98.6 62 19 114/58 93 11/13/16 15:00 62 11/13/16 14:00 58 11/13/16 13:00 72 11/13/16 12:00 54 11/13/16 11:10 98.3 64 16 100/47 92 11/13/16 11:00 52 11/13/16 10:00 52 11/13/16 09:00 58 I/O 11/13/16 11/13/16 11/13/16 11/14/16 11/14/16 11/14/16 07:00 15:00 23:00 07:00 15:00 23:00 Intake Total 1240 ml 820 ml 240 ml Output Total 400 ml 350 ml 0 ml Balance 840 ml 470 ml 240 ml Intake Oral 240 ml 720 ml 240 ml IV Total 1000 ml 100 ml 0 ml Output Urine Total 400 ml 350 ml Emesis 0 ml 0 ml # Voids 2 2 # Bowel Movements 0 2 0 Physical Exam Lungs clear RRR 2/6 systolic murmur apex Laboratory Laboratory Tests Test 11/13/16 11/14/16 13:10 05:25 Urine Color YELLOW Urine Turbidity CLEAR Urine pH 6.0 Urine Specific [place] GREATER THAN 1.050 Urine Protein TRACE mg/dL Urine Glucose (UA) NEG mg/dL Urine Ketones TRACE mg/dL Urine Occult Blood NEG Urine Nitrite NEG Urine Bilirubin NEG Urine Urobilinogen LESS THAN 2.0 MG/DL Urine Leukocyte Esterase MOD Urine RBC 3 /hpf Urine WBC 2 /hpf Urine Squamous Epithelial 1 /hpf Cells Urine Hyaline Casts 3 /lpf Microscopic Urinalysis Comment CULT NOT INDICATED White Blood Count 2.7 TH/MM3 Red Blood Count 2.76 MIL/MM3 Hemoglobin 9.5 GM/DL Hematocrit 27.3 % Mean Corpuscular Volume 99.1 FL Mean Corpuscular Hemoglobin 34.4 PG Mean Corpuscular Hemoglobin 34.7 % Concent Red Cell Distribution Width 17.8 % Platelet Count 54 TH/MM3 Mean Platelet Volume 9.1 FL Neutrophils (%) (Auto) 61.5 % Lymphocytes (%) (Auto) 27.5 % Monocytes (%) (Auto) 5.4 % Eosinophils (%) (Auto) 4.4 % Basophils (%) (Auto) 1.2 % Neutrophils # (Auto) 1.7 TH/MM3 Lymphocytes # (Auto) 0.7 TH/MM3 Monocytes # (Auto) 0.1 TH/MM3 Eosinophils # (Auto) 0.1 TH/MM3 Basophils # (Auto) 0.0 TH/MM3 CBC Comment AUTO DIFF Differential Comment AUTO DIFF CONFIRMED Platelet Estimate LOW Platelet Morphology Comment NORMAL Sodium Level 137 MEQ/L Potassium Level 3.3 MEQ/L Chloride Level 103 MEQ/L Carbon Dioxide Level 25.1 MEQ/L Anion Gap 9 MEQ/L Blood Urea Nitrogen 9 MG/DL Creatinine 0.98 MG/DL Estimat Glomerular Filtration 55 ML/MIN Rate Random Glucose 83 MG/DL Calcium Level 7.9 MG/DL Assessment and Plan Problem List: (1) STEMI (ST elevation myocardial infarction) Assessment and Plan: Takasubo syndrome. Will increase ACEI and add small dose of carvedilol. Increase activity. Probably D/C tomorrow Problem Qualifiers (1) STEMI (ST elevation myocardial infarction): Qualified Code: I21.3 - ST elevation myocardial infarction (STEMI), unspecified artery Juma Vincent MD Nov 14, 2016 08:12
[2016-11-14] MEDS ORDERED: POTASSIUM CHLORIDE 10 MEQ CONTROLLED RELEASE TAB PO ONE (09:00)
[2016-11-14] MEDS: SODIUM CHLORIDE 0.9% FLUSH 10 ML FLUSH IV FLUSH SCH ×2 (09:00→21:36)
[2016-11-14] MEDS: LACTULOSE SYRUP 20 GM/30 ML CUP PO SCH ×2 (09:00→17:45)
[2016-11-14] MEDS: LISINOPRIL 10 MG TAB PO SCH (09:05)
[2016-11-14] MEDS: CITALOPRAM HYDROBROMIDE 20 MG TAB PO SCH (09:06)
[2016-11-14] MEDS: CARVEDILOL 3.125 MG TAB PO SCH ×2 (09:06→21:40)
--- NOTE | 2016-11-14 11:25 | HHI.FPPN ---
Subjective Remarks No acute events overnight. Afebrile. BPs 100-150s/40-80s over past 24 hrs. Patient denies CP this morning. Denying SOB, fevers, anxiety, pain, tremors, confusion. Objective Vitals Vital Signs Date Time Temp Pulse Resp B/P Pulse Ox O2 Delivery O2 Flow Rate FiO2 11/14/16 10:00 55 11/14/16 09:53 92 11/14/16 09:00 88 11/14/16 08:00 64 11/14/16 07:00 62 11/14/16 06:00 64 11/14/16 05:00 64 11/14/16 04:00 62 11/14/16 03:58 99.5 65 20 154/62 97 11/14/16 03:00 62 11/14/16 02:00 66 11/14/16 01:00 64 11/14/16 00:00 67 11/14/16 00:00 99.0 62 20 144/75 94 11/13/16 23:00 56 11/13/16 22:00 58 11/13/16 21:00 58 11/13/16 20:00 68 11/13/16 19:46 94 21 11/13/16 19:19 99.9 59 20 159/78 94 11/13/16 19:19 66 11/13/16 18:00 60 11/13/16 17:00 64 11/13/16 16:00 56 11/13/16 15:30 98.6 62 19 114/58 93 11/13/16 15:00 62 11/13/16 14:00 58 11/13/16 13:00 72 11/13/16 12:00 54 I/O 11/13/16 11/13/16 11/13/16 11/14/16 11/14/16 11/14/16 07:00 15:00 23:00 07:00 15:00 23:00 Intake Total 1240 ml 820 ml 240 ml Output Total 400 ml 350 ml 0 ml Balance 840 ml 470 ml 240 ml Intake Oral 240 ml 720 ml 240 ml IV Total 1000 ml 100 ml 0 ml Output Urine Total 400 ml 350 ml Emesis 0 ml 0 ml # Voids 2 2 # Bowel Movements 0 2 0 Result Diagram: 11/14/16 0525 11/14/16 0525 Objective Remarks GENERAL: elderly female lying in bed, in NAD SKIN: No rashes, ecchymoses or lesions. Cool and dry. EYES: EOMI. No scleral icterus. No injection. CARDIOVASCULAR: Regular rate and rhythm, systolic murmur RUSB. Peripheral pulses 2+. RESPIRATORY: Clear to auscultation. Breath sounds equal bilaterally. No wheezes , rales, or rhonchi. GASTROINTESTINAL: Abdomen soft, nontender, nondistended. No hepatosplenomegaly appreciated, or palpable masses. No guarding. MUSCULOSKELETAL: Trace b/l lower extremity edema A/P Assessment and Plan 76-year-old woman with PMH of CAD readmitted with substernal chest pain. Patient is status post cardiac catheterization by cardiology. Problem List: (1) STEMI (ST elevation myocardial infarction) Status: Acute Plan: - Cardiology on board - Cardiac cath 11/12/2016 findings of takotsubo cardiomyopathy, mild nonobstructive coronary disease, mildly elevated left-sided filling pressure - Echo demonstrating normal left ventricular size, mild concentric left ventricular hypertrophy, left ventricular systolic function mildly reduced estimated ejection fraction 45-50% - Continue coreg 3.125 mg po q12h - Continue lisinopril 10 mg po daily - Holding aspirin due to thrombocytopenia (2) Pancytopenia Status: Acute Plan: - May be related to chronic alcoholism - Patient does have a history of pancytopenia per prior EMR records - Will obtain peripheral smear - Check B12/folate (3) Cirrhosis Status: Chronic Plan: Continue home lactulose Monitor neuro status, LFTs INR 1.1 Ammonia level 34 from 11/10 (4) Chronic alcohol abuse Status: Chronic Plan: [facility] protocol MV, folic acid, thiamine (5) HTN (hypertension) Status: Chronic Plan: Monitor vitals q4h Continue lisinopril and coreg (6) Hypothyroidism Status: Chronic Plan: Continue home Synthroid (7) Depression Status: Chronic Plan: Continue home Celexa (8) UTI (urinary tract infection) Status: Resolved Plan: Urine culture from 11/10 prior admission growing >100,000cfus E coli pansensitive Patient completing Rocephin 1gm IV q24h today 11/14 Repeat UA 11/13 not indicating need for culture (9) Nutrition, metabolism, and development symptoms Status: Acute Plan: Fluids: none Electrolytes: continue to monitor, replete as needed Nutrition: heart healthy DVT ppx: b/l SCDs Problem Qualifiers (1) STEMI (ST elevation myocardial infarction): Qualified Code: I21.3 - ST elevation myocardial infarction (STEMI), unspecified artery David Campa MD R2 Nov 14, 2016 11:25
--- NOTE | 2016-11-14 14:37 | ECHRPT ---
Indication: CHEST PAIN CONCLUSIONS Normal left ventricular size. Mild concentric left ventricular hypertrophy. The left ventricular systolic function is mildly reduced with an estimated ejection fraction in the range of 45- 50%. Left and right atrial size is mildly dilated. Moderate mitral annular calcification. Moderate mitral valve regurgitation. There is trace tricuspid valve regurgitation. There is estimated mild pulmonary hypertension present (range 40-50 mmHg). There is less than 50% respiratory change in dimension of the inferior vena cava (abnormal). BP: 122 / 59 HR: 69 Rhythm: Sinus MEASUREMENTS (Male / Female) Normal Values Technical Quality:Fair 2D ECHO LV Diastolic Diameter PLAX 4.7 cm 4.2 - 5.9 / 3.9 - 5.3 cm LV Systolic Diameter PLAX 3.8 cm IVS Diastolic Thickness 1.0 cm 0.6 - 1.0 / 0.6 - 0.9 cm LVPW Diastolic Thickness 1.0 cm 0.6 - 1.0 / 0.6 - 0.9 cm LV Relative Wall Thickness 0.4 LVOT Diameter 1.5 cm Aortic Root Diameter 2.5 cm LA Systolic Diameter LX 3.1 cm 3.0 - 4.0 / 2.7 - 3.8 cm M-MODE AV Cusp Separation MM 1.5 cm DOPPLER AV Peak Velocity 163.5 cm/s AV Peak Gradient 10.7 mmHg AV Mean Gradient 6.0 mmHg AV Velocity Time Integral 36.1 cm LVOT Peak Velocity 94.0 cm/s LVOT Peak Gradient 3.5 mmHg LVOT Velocity Time Integral 24.3 cm LVOT Cardiac Index 1768.2 cm/minm AV Area Cont Eq vti 1.2 cm AV Area Cont Eq pk 1.0 cm Mitral E Point Velocity 112.0 cm/s Mitral A Point Velocity 67.6 cm/s Mitral E to A Ratio 1.7 LV E' Lateral Velocity 7.1 cm/s Mitral E to LV E' Lateral Ratio 15.8 LV E' Septal Velocity 7.0 cm/s Mitral E to LV E' Septal Ratio 16.0 TR Peak Velocity 278.0 cm/s TR Peak Gradient 30.9 mmHg PV Peak Velocity 80.5 cm/s PV Peak Gradient 2.6 mmHg FINDINGS LEFT VENTRICLE Normal left ventricular size. Mild concentric left ventricular hypertrophy. The left ventricular systolic function is mildly reduced with an estimated ejection fraction in the range of 45- 50%. Left ventricular diastolic function parameters are normal. This is just a mild overall left ventricular dysfunction at the apex. The remainder of the left henrique tricle appears to move well. RIGHT VENTRICLE Normal right ventricular size and systolic function. LEFT ATRIUM The left atrial size is mildly dilated. RIGHT ATRIUM The right atrial size is mildly dilated. ATRIAL SEPTUM Normal atrial septal thickness without atrial level shunting by limited color doppler interrogation. AORTA The aortic root and proximal ascending aorta are normal in size on limited imaging. MITRAL VALVE Moderate thickening of the mitral valve leaflets. Moderate mitral annular calcification. Moderate mitral valve regurgitation. No mitral valve stenosis. AORTIC VALVE Aortic valve sclerosis is present. No aortic valve regurgitation. No aortic valve stenosis. TRICUSPID VALVE Structurally normal tricuspid valve. There is trace tricuspid valve regurgitation. There is estimated mild pulmonary hypertension present (range 40-50 mmHg). PULMONARY VALVE The pulmonary valve is not well visualized. VESSELS There is less than 50% respiratory change in dimension of the inferior vena cava (abnormal). PERICARDIUM No pericardial effusion. Jorge Friedman MD (Electronically Signed) Final Date:14 November 2016 14:36
[2016-11-14] MEDS: LEVOTHYROXINE SODIUM 75 MCG TAB PO SCH (14:40)
[2016-11-14] MEDS: cefTRIAXone INJ 1,000 MG in SODIUM CHLORIDE 0.9% INJ 100 ML IV SCH (14:40)
[2016-11-14] MEDS: THIAMINE HCL 100 MG TAB PO SCH (17:45)
[2016-11-14] MEDS: MULTIVITAMINS/MINERALS THERAPEUTIC TAB PO SCH (17:45)
[2016-11-14] MEDS: FOLIC ACID 1 MG TAB PO SCH (17:45)
[2016-11-14] MEDS: oxyCODONE/ACETAMINOPHEN 10 MG/325 MG TAB PO PRN (21:35)
[2016-11-14] MEDS: PANTOPRAZOLE SOD 40 MG DELAYED RELEASE TAB PO SCH (21:36)
[2016-11-15] VITALS (29 sets, daily range): BP systolic 106–146; BP diastolic 50–79; PULSE 45–68; RESP 16; TEMP 97.9–99.2; O2SAT 88–96
[2016-11-15] MEDS: oxyCODONE/ACETAMINOPHEN 10 MG/325 MG TAB PO PRN (03:21)
[2016-11-15] MEDS: clonazePAM 0.5 MG TAB PO PRN ×2 (03:22→21:20)
[2016-11-15] MEDS: LEVOTHYROXINE SODIUM 75 MCG TAB PO SCH (06:44)
[2016-11-15] MEDS: oxyCODONE/ACETAMINOPHEN 5 MG/325 MG TAB PO PRN ×3 (06:45→21:21)
[2016-11-15 06:51] LABS: AUTOMATED NEUTROPHIL # 1.6 TH/MM3 (1.8-7.7); BASOPHIL % 1.2 % (0.0-2.0); EOSINOPHIL # 0.1 TH/MM3 (0-0.4); EOSINOPHIL % 4.2 % (0.0-4.0); HEMATOCRIT 26.5 % (35.0-46.0); LYMPH % 14.8 % (9.0-44.0); LYMPHOCYTE # 0.3 TH/MM3 (1.0-4.8); MEAN CELL VOLUME 99.9 FL (80.0-100.0); MEAN CORPUSCULAR HEMOGLOBIN 33.9 PG (27.0-34.0); MEAN CORPUSCULAR HGB CONC 33.9 % (32.0-36.0); MONO % 7.1 % (0.0-8.0); NEUT % 72.7 % (16.0-70.0); PLATELET COUNT 52 TH/MM3 (150-450); RED BLOOD COUNT 2.65 MIL/MM3 (4.00-5.30); RED CELL DISTRIBUTION WIDTH 18.5 % (11.6-17.2); WHITE BLOOD COUNT 2.3 TH/MM3 (4.0-11.0)
[2016-11-15 06:56] LABS: HEMO FLAGS AUTO DIFF
[2016-11-15 07:11] LABS: BICARBONATE 27.9 MEQ/L (21.0-32.0)
[2016-11-15 07:17] LABS: POTASSIUM 2.9 MEQ/L (3.5-5.1)
[2016-11-15 07:33] LABS: ACANTHOCYTES OCC (NORMAL); OVALOCYTES 1+ (NORMAL); PLATELET ESTIMATE SMEAR LOW (NORMAL); PLATELET MORPHOLOGY NORMAL (NORMAL); SCAN/DIFF AUTO DIFF CONFIRMED
[2016-11-15] MEDS: MULTIVITAMINS/MINERALS THERAPEUTIC TAB PO SCH (07:56)
[2016-11-15] MEDS: LACTULOSE SYRUP 20 GM/30 ML CUP PO SCH (07:56)
[2016-11-15] MEDS: FOLIC ACID 1 MG TAB PO SCH (08:00)
[2016-11-15] MEDS ORDERED: POTASSIUM CHLORIDE 20 MEQ CONTROLLED RELEASE TAB PO SCH (08:00)
[2016-11-15] MEDS: PANTOPRAZOLE SOD 40 MG DELAYED RELEASE TAB PO SCH (08:01)
[2016-11-15] MEDS: LISINOPRIL 10 MG TAB PO SCH (08:01)
[2016-11-15] MEDS: CITALOPRAM HYDROBROMIDE 20 MG TAB PO SCH (08:01)
[2016-11-15] MEDS: THIAMINE HCL 100 MG TAB PO SCH (08:01)
[2016-11-15] MEDS: SODIUM CHLORIDE 0.9% FLUSH 10 ML FLUSH IV FLUSH SCH ×2 (08:03→21:23)
--- NOTE | 2016-11-15 08:28 | PD.CARD.PN ---
Subjective Subjective Remarks admits to feeling very weak and tired. denies chest pain or SOB. Objective Medications Current Medications Medications (Trade) Dose Ordered Sig/Ebonie Route Start Time Stop Time Status Last Admin (Nitroglycerin-Dextrose Inj) 250 ml @ 0 mls/hr TITRATE IV 11/12/16 20:15 11/12/16 20:18 (Xylocaine 2% Jelly) 1 applic UNSCH PRN TOP 11/12/16 21:15 (Tylenol) 325 mg Q4H PRN PO 11/12/16 21:15 (Percocet 5-325 Mg) 1 tab Q4H PRN PO 11/12/16 21:15 11/15/16 06:45 (Percocet 10-325 Mg) 1 tab Q4H PRN PO 11/12/16 21:15 11/15/16 03:21 (Morphine Inj) 2 mg Q30M PRN IV PUSH 11/12/16 21:15 11/12/16 22:00 (Restoril) 15 mg HS PRN PO 11/12/16 21:00 11/12/16 22:05 (Aspirin Chew) 81 mg DAILY PO 11/13/16 09:00 Hold (Atropine Inj) 0.5 mg UNSCH PRN IV 11/12/16 21:15 (Reglan Inj) 10 mg Q4H PRN IV 11/12/16 21:15 (Zofran Inj) 4 mg Q4H PRN IV 11/12/16 21:15 (Catapres) 0.2 mg Q6H PRN PO 11/12/16 21:30 (Pill Splitter) 1 ea UNSCH PRN OTHER 11/13/16 09:15 (NS Flush) 2 ml UNSCH PRN IV FLUSH 11/13/16 12:00 (NS Flush) 2 ml BID IV FLUSH 11/13/16 12:00 11/15/16 08:03 (Narcan Inj) 0.4 mg UNSCH PRN IV 11/13/16 12:00 (Romazicon Inj) 0.2 mg Q1M PRN IV PUSH 11/13/16 12:15 (Ativan) 1 mg Q4H PRN PO 11/13/16 12:15 11/14/16 21:40 (Ativan Inj) 1 mg Q4H PRN IV PUSH 11/13/16 12:15 (Ativan) 2 mg Q2H PRN PO 11/13/16 12:15 (Ativan Inj) 2 mg Q2H PRN IV PUSH 11/13/16 12:15 (Ativan Inj) 2 mg Q1H PRN IV PUSH 11/13/16 12:15 (Ativan Inj) 2 mg Q15M PRN IV PUSH 11/13/16 12:15 (CeleXA) 10 mg DAILY PO 11/13/16 12:15 11/15/16 08:01 (Lactulose Liq) 30 ml DAILY PO 11/13/16 12:15 11/15/16 07:56 (Prinivil) 10 mg DAILY PO 11/14/16 09:00 11/15/16 08:01 (Synthroid) 75 mcg DAILY@06 PO 11/14/16 12:30 11/15/16 06:44 (Folate) 1 mg DAILY PO 11/14/16 16:15 11/19/16 16:14 11/15/16 08:00 (Vitamin B1) 100 mg DAILY PO 11/14/16 16:15 11/15/16 08:01 (Theragran M Tab) 1 tab DAILY PO 11/14/16 16:15 11/19/16 16:14 11/15/16 07:56 (KlonoPIN) 0.5 mg Q12H PRN PO 11/14/16 18:30 11/15/16 03:22 (Protonix) 40 mg DAILY PO 11/14/16 20:00 11/15/16 08:01 (KCl) 20 meq QID PO 11/15/16 09:00 (Coreg) 3.25 mg Q12HR PO 11/15/16 09:00 UNV Vital Signs / I&O Vital Signs Date Time Temp Pulse Resp B/P Pulse Ox O2 Delivery O2 Flow Rate FiO2 11/15/16 05:00 66 11/15/16 04:14 99.2 67 16 136/74 91 11/15/16 04:00 68 11/15/16 03:00 68 11/15/16 02:00 60 11/15/16 01:00 65 11/15/16 00:23 99.1 57 16 146/77 96 11/15/16 00:00 56 11/14/16 23:00 58 11/14/16 22:00 62 8/10/17 21:00 64 11/14/16 20:41 99.3 63 16 161/85 97 11/14/16 20:00 60 11/14/16 19:00 62 11/14/16 18:43 68 11/14/16 17:16 97 21 11/14/16 17:00 58 11/14/16 16:00 58 11/14/16 15:37 98.8 61 16 134/70 97 11/14/16 15:00 56 11/14/16 14:00 58 11/14/16 13:00 55 11/14/16 12:00 59 11/14/16 11:35 98.6 59 16 119/59 92 11/14/16 11:00 72 11/14/16 10:00 55 11/14/16 09:53 92 11/14/16 09:00 88 I/O 11/14/16 11/14/16 11/14/16 11/15/16 11/15/16 11/15/16 07:00 15:00 23:00 07:00 15:00 23:00 Intake Total 240 ml 1060 ml 240 ml Output Total 0 ml 400 ml Balance 240 ml 660 ml 240 ml Intake Oral 240 ml 960 ml 240 ml IV Total 0 ml 100 ml 0 ml Output Urine Total 400 ml Emesis 0 ml # Voids 2 3 # Bowel Movements 0 2 0 Physical Exam HEAD: Atraumatic. Normocephalic. EYES: Pupils equal and round. ENT: No nasal bleeding or discharge. NECK: Trachea midline. No JVD. CARDIOVASCULAR: Regular rate and rhythm. No murmurs RESPIRATORY: No accessory muscle use. Clear to auscultation. Breath sounds equal bilaterally. GASTROINTESTINAL: Abdomen soft, non-tender, nondistended MUSCULOSKELETAL: Extremities without clubbing, cyanosis, or edema. No obvious deformities. NEUROLOGICAL: Awake and alert. No obvious cranial nerve deficits. Normal speech. PSYCHIATRIC: Appropriate mood and affect; insight and judgment normal. Laboratory Laboratory Tests Test 11/15/16 06:00 White Blood Count 2.3 TH/MM3 Red Blood Count 2.65 MIL/MM3 Hemoglobin 9.0 GM/DL Hematocrit 26.5 % Mean Corpuscular Volume 99.9 FL Mean Corpuscular Hemoglobin 33.9 PG Mean Corpuscular Hemoglobin 33.9 % Concent Red Cell Distribution Width 18.5 % Platelet Count 52 TH/MM3 Mean Platelet Volume 8.8 FL Neutrophils (%) (Auto) 72.7 % Lymphocytes (%) (Auto) 14.8 % Monocytes (%) (Auto) 7.1 % Eosinophils (%) (Auto) 4.2 % Basophils (%) (Auto) 1.2 % Neutrophils # (Auto) 1.6 TH/MM3 Lymphocytes # (Auto) 0.3 TH/MM3 Monocytes # (Auto) 0.2 TH/MM3 Eosinophils # (Auto) 0.1 TH/MM3 Basophils # (Auto) 0.0 TH/MM3 CBC Comment AUTO DIFF Differential Comment AUTO DIFF CONFIRMED Platelet Estimate LOW Platelet Morphology Comment NORMAL Ovalocytes 1+ Acanthocytes OCC Sodium Level 135 MEQ/L Potassium Level 2.9 MEQ/L Chloride Level 102 MEQ/L Carbon Dioxide Level 27.9 MEQ/L Anion Gap 5 MEQ/L Blood Urea Nitrogen 8 MG/DL Creatinine 0.92 MG/DL Estimat Glomerular Filtration 59 ML/MIN Rate Random Glucose 94 MG/DL Calcium Level 7.8 MG/DL Assessment and Plan Problem List: (1) STEMI (ST elevation myocardial infarction) Assessment and Plan 76 yo WF with history of CAD and prior stenting presented with STEMI, urgent cath showed mild CAD, patent stent and takotsubo cardiomyopathy. + thrombocytopenia cardiomyopathy- Takotsubo. cardiac cath shows mild CAD, patent stent. echo EF45-5%, mod MVR cont ACEi and bb. potassium low will increase dosing to QID and check ammonia level Problem Qualifiers (1) STEMI (ST elevation myocardial infarction): Qualified Code: I21.3 - ST elevation myocardial infarction (STEMI), unspecified artery Kristin Phillips Nov 15, 2016 08:28
[2016-11-15] MEDS ORDERED: CARVEDILOL 3.125 MG TAB PO SCH (09:00)
[2016-11-15] MEDS: CARVEDILOL 3.125 MG TAB PO SCH ×2 (09:00→21:22)
[2016-11-15] MEDS: POTASSIUM CHLORIDE 20 MEQ CONTROLLED RELEASE TAB PO SCH ×4 (09:46→21:20)
--- NOTE | 2016-11-15 10:51 | HHI.FPPN ---
Subjective Remarks No acute events overnight. Pt lying in bed and doing well this AM. Complains of slight nausea, no vomiting. Denies CP, chills, SOB, STONE, and abdominal pain. Afebrile. Vitals are wnl. (Gabrielle Calixto MD R1) Objective Vitals Vital Signs Date Time Temp Pulse Resp B/P Pulse Ox O2 Delivery O2 Flow Rate FiO2 11/15/16 10:00 49 11/15/16 09:00 50 11/15/16 08:00 64 11/15/16 07:30 98.4 55 16 110/54 88 11/15/16 07:00 53 11/15/16 05:00 66 11/15/16 04:14 99.2 67 16 136/74 91 11/15/16 04:00 68 11/15/16 03:00 68 11/15/16 02:00 60 11/15/16 01:00 65 11/15/16 00:23 99.1 57 16 146/77 96 11/15/16 00:00 56 11/14/16 23:00 58 11/14/16 22:00 62 11/14/16 21:00 64 11/14/16 20:41 99.3 63 16 161/85 97 11/14/16 20:00 60 11/14/16 19:00 62 11/14/16 18:43 68 11/14/16 17:16 97 21 11/14/16 17:00 58 11/14/16 16:00 58 11/14/16 15:37 98.8 61 16 134/70 97 11/14/16 15:00 56 11/14/16 14:00 58 11/14/16 13:00 55 11/14/16 12:00 59 11/14/16 11:35 98.6 59 16 119/59 92 11/14/16 11:00 72 I/O 11/14/16 11/14/16 11/14/16 11/15/16 11/15/16 11/15/16 07:00 15:00 23:00 07:00 15:00 23:00 Intake Total 240 ml 1060 ml 240 ml Output Total 0 ml 400 ml Balance 240 ml 660 ml 240 ml Intake Oral 240 ml 960 ml 240 ml IV Total 0 ml 100 ml 0 ml Output Urine Total 400 ml Emesis 0 ml # Voids 2 3 # Bowel Movements 0 2 0 (Gabrielle Calixto MD R1) Result Diagram: 11/15/16 0600 11/15/16 0600 Imaging Last Impressions Chest X-Ray 11/12/162007 Signed Impressions: Service Date/Time: Saturday, November 12, 2016 19:59 - CONCLUSION: 1. Cardiomegaly with minimal basal airspace disease. Vj Ac MD Objective Remarks GENERAL: elderly female lying in bed, in NAD, pleasant SKIN: No rashes, ecchymoses or lesions. Cool and dry. EYES: EOMI. No scleral icterus. No injection. CARDIOVASCULAR: Regular rate and rhythm, systolic murmur RUSB. Peripheral pulses 2+. RESPIRATORY: Clear to auscultation. Breath sounds equal bilaterally. No wheezes , rales, or rhonchi. GASTROINTESTINAL: Abdomen soft, nontender, nondistended. No hepatosplenomegaly appreciated, or palpable masses. No guarding. MUSCULOSKELETAL: Trace b/l lower extremity edema (Gabrielle Calixto MD R1) A/P Assessment and Plan 76-year-old woman with PMH of CAD readmitted with substernal chest pain. Patient is status post cardiac catheterization by cardiology. Discharge Planning Patient will require PT at rehab Working with case management to find placement (Gabrielle Calixto MD R1) Assessment and Plan Patient seen and examined. Case reviewed and discussed with resident team. Agree with plan of care as discussed with me and documented in the resident note (Jacky Chen MD) Problem List: (1) STEMI (ST elevation myocardial infarction) Status: Acute Plan: - Cardiology on board - Cardiac cath 11/12/2016 findings of takotsubo cardiomyopathy, mild nonobstructive coronary disease, mildly elevated left-sided filling pressure - Echo demonstrating normal left ventricular size, mild concentric left ventricular hypertrophy, left ventricular systolic function mildly reduced estimated ejection fraction 45-50% - Continue coreg 3.125 mg po q12h - Continue lisinopril 10 mg po daily - Clonidine 0.2mg PO q6h PRN - Holding aspirin due to thrombocytopenia (2) Pancytopenia Status: Acute Plan: - May be related to chronic alcoholism. -Patient had a CT guided bone marrow biopsy at [facility] on 10/25. Spoke with nurse at Dr. Bruce's office. -Results of bone marrow biopsy revealed normocellular bone marrow with trilineage hematopoiesis, and no increase of blasts. Reveals no evidence of leukemia, lymphoma, granulomas., or other infiltrative processes. There is mild dyserythropoiesis; however, this finding is nonspecific. -Cytogenetic analysis shows a normal female karyotype - Patient does have a history of pancytopenia per prior EMR records - Peripheral smear pending - B12 1994 -Folate 5.9 (3) Cirrhosis Status: Chronic Plan: Continue home lactulose Monitor neuro status, LFTs INR 1.1 Ammonia level 34 from 11/10 Repeat ammonia pending (4) Chronic alcohol abuse Status: Chronic Plan: CIWA protocol MV, folic acid, thiamine (5) HTN (hypertension) Status: Chronic Plan: Monitor vitals q4h Continue lisinopril and coreg (6) Hypothyroidism Status: Chronic Plan: Continue home Synthroid (7) Depression Status: Chronic Plan: Continue home Celexa (8) UTI (urinary tract infection) Status: Resolved Plan: Urine culture from 11/10 prior admission growing >100,000cfus E coli pansensitive Patient completed Rocephin 1gm IV q24h today 11/14 Repeat UA 11/13 not indicating need for culture (9) Nutrition, metabolism, and development symptoms Status: Acute Plan: Fluids: none Electrolytes: continue to monitor, replete as needed Nutrition: heart healthy DVT ppx: b/l SCDs (Gabrielle Calixto MD R1) Problem Qualifiers (1) STEMI (ST elevation myocardial infarction): Qualified Code: I21.3 - ST elevation myocardial infarction (STEMI), unspecified artery Gabrielle Calixto MD R1 Nov 15, 2016 10:51 Jacky Chen MD Nov 17, 2016 11:40
[2016-11-15 22:49] LABS: BICARBONATE 26.1 MEQ/L (21.0-32.0); MAGNESIUM 1.7 MG/DL (1.5-2.5); POTASSIUM 4.4 MEQ/L (3.5-5.1)
[2016-11-16] VITALS (29 sets, daily range): BP systolic 130–165; BP diastolic 62–80; PULSE 48–74; RESP 16–18; TEMP 97.7–98.2; O2SAT 94–97
[2016-11-16] MEDS ORDERED: SODIUM CHLOR 0.9% 1000 ML INJ 1,000 ML IV ONE (01:30)
[2016-11-16 04:33] LABS: AUTOMATED NEUTROPHIL # 1.2 TH/MM3 (1.8-7.7); BASOPHIL % 1.2 % (0.0-2.0); EOSINOPHIL # 0.1 TH/MM3 (0-0.4); EOSINOPHIL % 6.1 % (0.0-4.0); HEMATOCRIT 26.1 % (35.0-46.0); LYMPH % 27.2 % (9.0-44.0); LYMPHOCYTE # 0.6 TH/MM3 (1.0-4.8); MEAN CELL VOLUME 99.8 FL (80.0-100.0); MEAN CORPUSCULAR HGB CONC 34.1 % (32.0-36.0); MONO % 8.1 % (0.0-8.0); NEUT % 57.4 % (16.0-70.0); PLATELET COUNT 50 TH/MM3 (150-450); RED BLOOD COUNT 2.62 MIL/MM3 (4.00-5.30); RED CELL DISTRIBUTION WIDTH 18.6 % (11.6-17.2); WHITE BLOOD COUNT 2.1 TH/MM3 (4.0-11.0)
[2016-11-16] MEDS: oxyCODONE/ACETAMINOPHEN 5 MG/325 MG TAB PO PRN ×4 (04:33→22:10)
[2016-11-16 04:41] LABS: HEMO FLAGS AUTO DIFF
[2016-11-16 04:52] LABS: POTASSIUM 4.5 MEQ/L (3.5-5.1)
[2016-11-16 05:28] LABS: PLATELET ESTIMATE SMEAR LOW (NORMAL); PLATELET MORPHOLOGY NORMAL (NORMAL); SCAN/DIFF AUTO DIFF CONFIRMED
[2016-11-16] MEDS: LEVOTHYROXINE SODIUM 75 MCG TAB PO SCH (07:21)
--- NOTE | 2016-11-16 08:44 | PD.CARD.PN ---
Subjective Subjective Remarks The patient is fatigued but denies chest pain, shortness of breath, GI symptoms or bleeding. Telemetry reveals sinus bradycardia. Chart reviewed. Objective Medications Reviewed Vital Signs / I&O Vital Signs Date Time Temp Pulse Resp B/P Pulse Ox O2 Delivery O2 Flow Rate FiO2 11/16/16 06:00 53 11/16/16 05:00 54 11/16/16 04:47 98.2 54 18 165/73 95 11/16/16 04:00 74 11/16/16 03:00 52 11/16/16 02:00 53 11/16/16 01:00 50 11/16/16 00:09 98.1 64 16 153/74 96 11/16/16 00:00 50 11/15/16 23:00 55 11/15/16 22:00 58 11/15/16 21:00 52 11/15/16 20:00 53 11/15/16 20:00 98.2 53 16 141/79 94 11/15/16 19:00 53 11/15/16 18:00 51 11/15/16 17:00 55 11/15/16 16:00 45 11/15/16 15:00 46 11/15/16 15:00 98.2 50 16 106/58 93 11/15/16 14:00 50 11/15/16 13:48 94 11/15/16 13:02 55 121/50 11/15/16 13:00 50 11/15/16 12:00 51 11/15/16 11:31 97.9 49 16 108/60 92 11/15/16 11:00 48 11/15/16 10:00 49 11/15/16 09:00 50 I/O 11/15/16 11/15/16 11/15/16 11/16/16 11/16/16 11/16/16 06:59 14:59 22:59 06:59 14:59 22:59 Intake Total 240 ml 400 ml 480 ml Balance 240 ml 400 ml 480 ml Intake Oral 240 ml 400 ml 480 ml IV Total 0 ml 0 ml # Voids 3 3 3 # Bowel Movements 0 1 1 Physical Exam GENERAL: Well-nourished, well-developed patient in no apparent distress. SKIN: Warm and dry. NECK: JVD normal - less than or equal to 5 cm H20. CARDIOVASCULAR: Regular rate and rhythm without murmurs, gallops, or rubs. RESPIRATORY: Normal breath sounds - equal bilaterally. No accessory muscle use. No wheezes, rales or rubs. PERIPHERY: No cyanosis, or edema. Laboratory Laboratory Tests Test 11/15/16 11/16/16 22:13 03:36 Sodium Level 135 MEQ/L 140 MEQ/L Potassium Level 4.4 MEQ/L 4.5 MEQ/L Chloride Level 104 MEQ/L 107 MEQ/L Carbon Dioxide Level 26.1 MEQ/L 25.0 MEQ/L Anion Gap 5 MEQ/L 8 MEQ/L Blood Urea Nitrogen 9 MG/DL 9 MG/DL Creatinine 1.13 MG/DL 1.02 MG/DL Estimat Glomerular Filtration 47 ML/MIN 53 ML/MIN Rate Random Glucose 97 MG/DL 81 MG/DL Calcium Level 7.8 MG/DL 8.4 MG/DL Magnesium Level 1.7 MG/DL Ammonia 33 MCMOL/L White Blood Count 2.1 TH/MM3 Red Blood Count 2.62 MIL/MM3 Hemoglobin 8.9 GM/DL Hematocrit 26.1 % Mean Corpuscular Volume 99.8 FL Mean Corpuscular Hemoglobin 34.0 PG Mean Corpuscular Hemoglobin 34.1 % Concent Red Cell Distribution Width 18.6 % Platelet Count 50 TH/MM3 Mean Platelet Volume 8.8 FL Neutrophils (%) (Auto) 57.4 % Lymphocytes (%) (Auto) 27.2 % Monocytes (%) (Auto) 8.1 % Eosinophils (%) (Auto) 6.1 % Basophils (%) (Auto) 1.2 % Neutrophils # (Auto) 1.2 TH/MM3 Lymphocytes # (Auto) 0.6 TH/MM3 Monocytes # (Auto) 0.2 TH/MM3 Eosinophils # (Auto) 0.1 TH/MM3 Basophils # (Auto) 0.0 TH/MM3 CBC Comment AUTO DIFF Differential Comment AUTO DIFF CONFIRMED Platelet Estimate LOW Platelet Morphology Comment NORMAL Imaging Reviewed Assessment and Plan Assessment and Plan Problems: Takotsubo cardiomyopathy Hypertension Hypothyroidism Alcohol and tobacco abuse Anemia with thrombocytopenia Recommendations Substance abstinence Continue present dose of ta inhibitors and beta blockers. I will leave further management to the primary service. We will be available if needed. All questions answered. Keyon Bess MD Nov 16, 2016 08:44
[2016-11-16] MEDS: CITALOPRAM HYDROBROMIDE 20 MG TAB PO SCH (08:54)
[2016-11-16] MEDS: FOLIC ACID 1 MG TAB PO SCH (08:54)
[2016-11-16] MEDS: CARVEDILOL 3.125 MG TAB PO SCH ×2 (08:54→22:11)
[2016-11-16] MEDS: THIAMINE HCL 100 MG TAB PO SCH (08:55)
[2016-11-16] MEDS: MULTIVITAMINS/MINERALS THERAPEUTIC TAB PO SCH (08:55)
[2016-11-16] MEDS: POTASSIUM CHLORIDE 20 MEQ CONTROLLED RELEASE TAB PO SCH ×4 (08:55→22:11)
[2016-11-16] MEDS: LISINOPRIL 10 MG TAB PO SCH (08:55)
[2016-11-16] MEDS: SODIUM CHLORIDE 0.9% FLUSH 10 ML FLUSH IV FLUSH SCH ×2 (08:55→22:11)
[2016-11-16] MEDS: LACTULOSE SYRUP 20 GM/30 ML CUP PO SCH (08:55)
[2016-11-16] MEDS: PANTOPRAZOLE SOD 40 MG DELAYED RELEASE TAB PO SCH (08:55)
--- NOTE | 2016-11-16 09:20 | HHI.FPPN ---
Subjective Remarks Patient reports overnight she felt some swelling around her right mandible. She also reports some shortness of breath and palpitations. Denies chest pain. Denies fevers or chills. She states this morning her symptoms of her right- sided swelling around her mandible are resolved and she does not have any pain. Denies SOB currently. She does endorse some anxiety. Denies confusion or tremors. She remains afebrile, BPs rangins 100s-160s/50s-70s over past 24 hrs. Objective Vitals Vital Signs Date Time Temp Pulse Resp B/P Pulse Ox O2 Delivery O2 Flow Rate FiO2 11/16/16 06:00 53 11/16/16 05:00 54 11/16/16 04:47 98.2 54 18 165/73 95 11/16/16 04:00 74 11/16/16 03:00 52 11/16/16 02:00 53 11/16/16 01:00 50 11/16/16 00:09 98.1 64 16 153/74 96 11/16/16 00:00 50 11/15/16 23:00 55 11/15/16 22:00 58 11/15/16 21:00 52 11/15/16 20:00 53 11/15/16 20:00 98.2 53 16 141/79 94 11/15/16 19:00 53 11/15/16 18:00 51 11/15/16 17:00 55 11/15/16 16:00 45 11/15/16 15:00 46 11/15/16 15:00 98.2 50 16 106/58 93 11/15/16 14:00 50 11/15/16 13:48 94 11/15/16 13:02 55 121/50 11/15/16 13:00 50 11/15/16 12:00 51 11/15/16 11:31 97.9 49 16 108/60 92 11/15/16 11:00 48 11/15/16 10:00 49 I/O 11/15/16 11/15/16 11/15/16 11/16/16 11/16/16 11/16/16 07:00 15:00 23:00 07:00 15:00 23:00 Intake Total 240 ml 400 ml 480 ml Balance 240 ml 400 ml 480 ml Intake Oral 240 ml 400 ml 480 ml IV Total 0 ml 0 ml # Voids 3 3 3 # Bowel Movements 0 1 1 Result Diagram: 11/16/16 0336 11/16/16 0336 Objective Remarks GENERAL: elderly female lying in bed, in NAD, pleasant SKIN: No rashes, ecchymoses or lesions. Cool and dry. EYES: EOMI. No scleral icterus. No injection. CARDIOVASCULAR: Regular rate and rhythm, systolic murmur RUSB. Peripheral pulses 2+. RESPIRATORY: Clear to auscultation. Breath sounds equal bilaterally. No wheezes , rales, or rhonchi. GASTROINTESTINAL: Abdomen soft, nontender, nondistended. No hepatosplenomegaly appreciated, or palpable masses. No guarding. MUSCULOSKELETAL: Trace b/l lower extremity edema A/P Assessment and Plan 76-year-old woman with PMH of CAD readmitted with substernal chest pain. Patient is status post cardiac catheterization by cardiology. Discharge Planning Patient will require PT at rehab Working with case management to find placement [id number] signed in patients chart Problem List: (1) STEMI (ST elevation myocardial infarction) Status: Acute Plan: - Cardiac cath 11/12/2016 findings of takotsubo cardiomyopathy, mild nonobstructive coronary disease, mildly elevated left-sided filling pressure - Echo demonstrating normal left ventricular size, mild concentric left ventricular hypertrophy, left ventricular systolic function mildly reduced estimated ejection fraction 45-50% - Continue coreg 3.125 mg po q12h - Continue lisinopril 10 mg po daily - Start amlodipine 2.5 mg po daily - Clonidine 0.2mg po q6h prn - Holding aspirin due to thrombocytopenia - Cardiology signing off (2) Pancytopenia Status: Acute Plan: - May be related to chronic alcoholism. -Patient had a CT guided bone marrow biopsy at [facility] on 10/25. Spoke with nurse at Dr. Bruce's office. -Results of bone marrow biopsy revealed normocellular bone marrow with trilineage hematopoiesis, and no increase of blasts. Reveals no evidence of leukemia, lymphoma, granulomas., or other infiltrative processes. There is mild dyserythropoiesis; however, this finding is nonspecific. -Cytogenetic analysis shows a normal female karyotype - Patient does have a history of pancytopenia per prior EMR records - Peripheral smear showing moderate pancytopenia finding are relatively nonspecific - B12 1994 -Folate 5.9 (3) Cirrhosis Status: Chronic Plan: Continue home lactulose Monitor neuro status, LFTs INR 1.1 Ammonia level 33 11/15 (4) Chronic alcohol abuse Status: Chronic Plan: CIWA protocol MV, folic acid, thiamine (5) HTN (hypertension) Status: Chronic Plan: Monitor vitals q4h Continue lisinopril and coreg Start amlodipine as above (6) Hypothyroidism Status: Chronic Plan: Continue home Synthroid (7) Depression Status: Chronic Plan: Continue home Celexa (8) UTI (urinary tract infection) Status: Resolved Plan: Urine culture from 11/10 prior admission growing >100,000cfus E coli pansensitive Patient completed Rocephin 1gm IV q24h on 11/14 Repeat UA 11/13 not indicating need for culture (9) Nutrition, metabolism, and development symptoms Status: Acute Plan: Fluids: NS at 100 cc/hr Electrolytes: continue to monitor, replete as needed Nutrition: heart healthy DVT ppx: b/l SCDs Problem Qualifiers (1) STEMI (ST elevation myocardial infarction): Qualified Code: I21.3 - ST elevation myocardial infarction (STEMI), unspecified artery David Campa MD R2 Nov 16, 2016 09:20
[2016-11-16] MEDS: LORazepam 1 MG TAB PO PRN (10:32)
[2016-11-16] MEDS: SODIUM CHLOR 0.9% 1000 ML INJ 1,000 ML IV SCH ×2 (11:30→21:30)
[2016-11-16] MEDS: amLODIPine BESYLATE 5 MG TAB PO SCH (11:55)
[2016-11-16] MEDS: clonazePAM 0.5 MG TAB PO PRN (22:10)
[2016-11-17] VITALS (18 sets, daily range): BP systolic 124–179; BP diastolic 67–85; PULSE 48–59; RESP 16–18; TEMP 97.5–98.1; O2SAT 95–97
[2016-11-17] MEDS ORDERED: diphenhydrAMINE HCL 50 MG/ML VIAL IV PUSH PRN (06:45)
[2016-11-17 07:26] LABS: AUTOMATED NEUTROPHIL # 1.3 TH/MM3 (1.8-7.7); BASOPHIL % 0.6 % (0.0-2.0); EOSINOPHIL # 0.1 TH/MM3 (0-0.4); HEMATOCRIT 27.6 % (35.0-46.0); LYMPH % 22.5 % (9.0-44.0); LYMPHOCYTE # 0.5 TH/MM3 (1.0-4.8); MEAN CELL VOLUME 100.9 FL (80.0-100.0); MEAN CORPUSCULAR HGB CONC 33.7 % (32.0-36.0); MONO % 6.3 % (0.0-8.0); NEUT % 65.6 % (16.0-70.0); PLATELET COUNT 57 TH/MM3 (150-450); RED BLOOD COUNT 2.73 MIL/MM3 (4.00-5.30); RED CELL DISTRIBUTION WIDTH 18.5 % (11.6-17.2)
[2016-11-17 07:28] LABS: HEMO FLAGS AUTO DIFF
[2016-11-17] MEDS: SODIUM CHLOR 0.9% 1000 ML INJ 1,000 ML IV SCH ×2 (07:30→17:30)
[2016-11-17] MEDS: LEVOTHYROXINE SODIUM 75 MCG TAB PO SCH (07:57)
[2016-11-17 08:02] LABS: INTERNATIONAL NORMALIZED RATIO 1.1 RATIO; PROTHROMBIN TIME - PATIENT 12.5 SEC (9.8-11.6)
[2016-11-17 08:05] LABS: ALT (GPT) 23 U/L (10-53); ANION GAP 8 MEQ/L (5-15); AST (GOT) 53 U/L (15-37); BICARBONATE 22.6 MEQ/L (21.0-32.0); BLOOD UREA NITROGEN 9 MG/DL (7-18); CHLORIDE 109 MEQ/L (98-107); GLOMERULAR FILTRATION RATE 58 ML/MIN (>89); POTASSIUM 4.5 MEQ/L (3.5-5.1); SODIUM (NA) 140 MEQ/L (136-145)
[2016-11-17 08:07] LABS: ALKALINE PHOSPHATASE 87 U/L (45-117); TOTAL BILIRUBIN ADULT 0.9 MG/DL (0.2-1.0)
[2016-11-17] MEDS: THIAMINE HCL 100 MG TAB PO SCH (08:27)
[2016-11-17] MEDS: CARVEDILOL 3.125 MG TAB PO SCH ×2 (08:27→20:53)
[2016-11-17] MEDS: LACTULOSE SYRUP 20 GM/30 ML CUP PO SCH (08:27)
[2016-11-17] MEDS: MULTIVITAMINS/MINERALS THERAPEUTIC TAB PO SCH (08:28)
[2016-11-17] MEDS: LISINOPRIL 10 MG TAB PO SCH (08:28)
[2016-11-17] MEDS: POTASSIUM CHLORIDE 20 MEQ CONTROLLED RELEASE TAB PO SCH ×4 (08:28→20:53)
[2016-11-17] MEDS: oxyCODONE/ACETAMINOPHEN 5 MG/325 MG TAB PO PRN ×3 (08:28→23:53)
[2016-11-17] MEDS: CITALOPRAM HYDROBROMIDE 20 MG TAB PO SCH (08:28)
[2016-11-17] MEDS: FOLIC ACID 1 MG TAB PO SCH (08:28)
[2016-11-17] MEDS: PANTOPRAZOLE SOD 40 MG DELAYED RELEASE TAB PO SCH (08:29)
[2016-11-17] MEDS: amLODIPine BESYLATE 5 MG TAB PO SCH (08:29)
[2016-11-17] MEDS: LORazepam 1 MG TAB PO PRN (08:32)
[2016-11-17 08:36] LABS: ACANTHOCYTES OCC (NORMAL); OVALOCYTES 1+ (NORMAL); PLATELET ESTIMATE SMEAR LOW (NORMAL); PLATELET MORPHOLOGY NORMAL (NORMAL); SCAN/DIFF AUTO DIFF CONFIRMED
[2016-11-17] MEDS: SODIUM CHLORIDE 0.9% FLUSH 10 ML FLUSH IV FLUSH SCH ×2 (09:00→20:53)
--- NOTE | 2016-11-17 11:00 | HHI.FPPN ---
Subjective Remarks No acute events overnight. Pt sitting up in chair. Apparent insects found on patient's head this AM. Insects were long, nevarez, and thin. Pt didn't complain of itching. Nursing staff was notified and pt was placed under contact precaution. Specimen was collected and sent down to pathology for identification. (Gabrielle Calixto MD R1) Objective Vitals Vital Signs Date Time Temp Pulse Resp B/P Pulse Ox O2 Delivery O2 Flow Rate FiO2 11/17/16 09:40 18 11/17/16 08:00 97.7 59 18 175/85 96 11/17/16 06:26 98.1 56 16 148/76 97 11/17/16 02:00 52 11/17/16 01:00 50 11/16/16 23:55 21 11/16/16 23:39 97.7 62 16 154/76 95 11/16/16 23:00 54 11/16/16 22:00 57 11/16/16 21:00 56 11/16/16 20:20 97.7 59 16 130/62 96 11/16/16 20:07 96 21 11/16/16 20:00 54 11/16/16 19:00 54 11/16/16 18:00 54 11/16/16 17:00 56 11/16/16 16:00 98.1 57 18 142/76 97 11/16/16 16:00 50 11/16/16 15:00 49 11/16/16 14:00 50 11/16/16 13:00 48 11/16/16 12:00 48 11/16/16 12:00 97.8 55 18 149/67 94 11/16/16 11:00 51 I/O 11/16/16 11/16/16 11/16/16 11/17/16 11/17/16 11/17/16 07:00 15:00 23:00 07:00 15:00 23:00 Intake Total 480 ml 1280 ml Balance 480 ml 1280 ml Intake Oral 480 ml 480 ml IV Total 0 ml 800 ml # Voids 3 4 # Bowel Movements 1 2 (Gabrielle Calixto MD R1) Result Diagram: 11/17/1663011/17/16630 Imaging Last Impressions Chest X-Ray 11/12/162007 Signed Impressions: Service Date/Time: Saturday, November 12, 2016 19:59 - CONCLUSION: 1. Cardiomegaly with minimal basal airspace disease. Vj Ac MD Objective Remarks GENERAL: elderly female lying in bed, in NAD, pleasant SKIN: No rashes, ecchymoses or lesions. Cool and dry. HEAD: long, thin nevarez parasites crawling on patient's head EYES: EOMI. No scleral icterus. No injection. CARDIOVASCULAR: Regular rate and rhythm, systolic murmur RUSB. Peripheral pulses 2+. RESPIRATORY: Clear to auscultation. Breath sounds equal bilaterally. No wheezes , rales, or rhonchi. GASTROINTESTINAL: Abdomen soft, nontender, nondistended. No hepatosplenomegaly appreciated, or palpable masses. No guarding. MUSCULOSKELETAL: Trace b/l lower extremity edema (Gabrielle Calixto MD R1) A/P Assessment and Plan 76-year-old woman with PMH of CAD readmitted with substernal chest pain. Patient is status post cardiac catheterization by cardiology. Discharge Planning Patient will require PT at rehab Working with case management to find placement [id number] signed in patients chart (Gabrielle Calixto MD R1) Assessment and Plan Attending clinical assessment: Noted on rounds this morning to have some type of insect in her scalp. Linear and dark, charge nurse aware, housekeeping and extermination aware, specimen sent to pathology for ID, suspect head lice. Treat accordingly, follow-up with pathology for ID of insect. Placement issue, disease case manager rn working on some type of discharge plans. Cardiac stable. Bone marrow biopsy results reviewed, pancytopenia nonspecific. Absence of alcohol, full nutrition. Patient seen and examined. Case reviewed and discussed with resident team. Agree with plan of care as discussed with me and documented in the resident note (Jacky Chen MD) Problem List: (1) STEMI (ST elevation myocardial infarction) Status: Acute Plan: - Cardiac cath 11/12/2016 findings of takotsubo cardiomyopathy, mild nonobstructive coronary disease, mildly elevated left-sided filling pressure - Echo demonstrating normal left ventricular size, mild concentric left ventricular hypertrophy, left ventricular systolic function mildly reduced estimated ejection fraction 45-50% - Continue coreg 3.125 mg po q12h - Continue lisinopril 10 mg po daily - continue amlodipine 2.5 mg po daily - Clonidine 0.2mg po q6h prn - Holding aspirin due to thrombocytopenia - Cardiology signing off (2) Pancytopenia Status: Acute Plan: - May be related to chronic alcoholism. -Patient had a CT guided bone marrow biopsy at [facility] on 10/25. Spoke with nurse at Dr. Bruce's office. -Results of bone marrow biopsy revealed normocellular bone marrow with trilineage hematopoiesis, and no increase of blasts. Reveals no evidence of leukemia, lymphoma, granulomas., or other infiltrative processes. There is mild dyserythropoiesis; however, this finding is nonspecific. -Cytogenetic analysis shows a normal female karyotype - Patient does have a history of pancytopenia per prior EMR records - Peripheral smear showing moderate pancytopenia finding are relatively nonspecific - B12 1994 -Folate 5.9 (3) Cirrhosis Status: Chronic Plan: Continue home lactulose Monitor neuro status, LFTs INR 1.1 Ammonia level 33 11/15 (4) Chronic alcohol abuse Status: Chronic Plan: CIWA protocol MV, folic acid, thiamine (5) HTN (hypertension) Status: Chronic Plan: Monitor vitals q4h Continue lisinopril, coreg, amlodipine (6) Hypothyroidism Status: Chronic Plan: Continue home Synthroid (7) Depression Status: Chronic Plan: Continue home Celexa (8) UTI (urinary tract infection) Status: Resolved Plan: Urine culture from 11/10 prior admission growing >100,000cfus E coli pansensitive Patient completed Rocephin 1gm IV q24h on 11/14 Repeat UA 11/13 not indicating need for culture (9) Head lice Status: Acute Plan: -1% permethrin cream (10) Nutrition, metabolism, and development symptoms Status: Acute Plan: Fluids: NS at 100 cc/hr Electrolytes: continue to monitor, replete as needed Nutrition: heart healthy DVT ppx: b/l SCDs (Gabrielle Calixto MD R1) Problem Qualifiers (1) STEMI (ST elevation myocardial infarction): Qualified Code: I21.3 - ST elevation myocardial infarction (STEMI), unspecified artery Gabrielle Calixto MD R1 Nov 17, 2016 11:00 Jacky Chen MD Nov 17, 2016 11:35
[2016-11-17] MEDS ORDERED: PERMETHRIN 1% LOTION 60 ML BTL TOPICAL ONE ×2 (11:30→15:00)
--- NOTE | 2016-11-17 11:46 | HHI.PR ---
Addendum to Inpatient Note Addendum Reason: Additional Documentation Additional Information OFF SERVICE NOTE: 76 yr old F with PMHx of chronic homelessness, chronic alcohol abuse, CAD s/p 5 stents, cirrhosis, pancytopenia, HTN, hypothyroidism, depression, admitted on 11/12/16 with sub sternal chest pain. Cardiology consulted. Cardiac catheterization procedure 11/12/16 showed findings of takotsubo cardiomyopathy ( broken-heart syndrome), mild nonobstructive coronary disease, and mildly elevated left-sided filling pressure. Patient is stable on ta inhibitors and calcium channel blockers. Cardiology signed off 11/16/16. Patient also has history of pancytopenia. Bone marrow biopsy 10/25/16 records obtain from [facility] revealed normocellular bone marrow. Peripheral smear 11/15/16 showed moderate nonspecific pancytopenia, most likely related to chronic alcoholism. Will just continue to follow with CBCs for now. In addition, patient found to have head lice, will treat with permethrin cream. Patient will require PT at rehab. [id number] signed in patients chart. Currently, working with case management to find placement. Placement will be quite difficult since patient has been denied at several places. Gabrielle Calixto MD R1 Nov 17, 2016 11:46
[2016-11-17] MEDS: clonazePAM 0.5 MG TAB PO PRN (16:35)
[2016-11-18] VITALS (19 sets, daily range): BP systolic 117–136; BP diastolic 55–68; PULSE 44–52; RESP 17–19; TEMP 97.8; O2SAT 93–96
[2016-11-18] MEDS: SODIUM CHLOR 0.9% 1000 ML INJ 1,000 ML IV SCH ×2 (06:07→13:15)
[2016-11-18] MEDS: LEVOTHYROXINE SODIUM 75 MCG TAB PO SCH (06:07)
[2016-11-18 08:20] LABS: AUTOMATED NEUTROPHIL # 0.7 TH/MM3 (1.8-7.7); BASOPHIL % 1.3 % (0.0-2.0); EOSINOPHIL # 0.1 TH/MM3 (0-0.4); EOSINOPHIL % 6.1 % (0.0-4.0); HEMATOCRIT 26.6 % (35.0-46.0); LYMPHOCYTE # 0.6 TH/MM3 (1.0-4.8); MEAN CELL VOLUME 100.9 FL (80.0-100.0); MEAN CORPUSCULAR HEMOGLOBIN 33.8 PG (27.0-34.0); MEAN CORPUSCULAR HGB CONC 33.5 % (32.0-36.0); MONO % 7.9 % (0.0-8.0); NEUT % 42.7 % (16.0-70.0); PLATELET COUNT 57 TH/MM3 (150-450); RED BLOOD COUNT 2.63 MIL/MM3 (4.00-5.30); RED CELL DISTRIBUTION WIDTH 18.7 % (11.6-17.2); WHITE BLOOD COUNT 1.5 TH/MM3 (4.0-11.0)
[2016-11-18 08:30] LABS: HEMO FLAGS AUTO DIFF
[2016-11-18] MEDS: MULTIVITAMINS/MINERALS THERAPEUTIC TAB PO SCH (08:35)
[2016-11-18] MEDS: PANTOPRAZOLE SOD 40 MG DELAYED RELEASE TAB PO SCH (08:35)
[2016-11-18] MEDS: POTASSIUM CHLORIDE 20 MEQ CONTROLLED RELEASE TAB PO SCH ×2 (08:35→13:15)
[2016-11-18] MEDS: amLODIPine BESYLATE 5 MG TAB PO SCH (08:36)
[2016-11-18] MEDS: oxyCODONE/ACETAMINOPHEN 5 MG/325 MG TAB PO PRN ×2 (08:36→13:16)
[2016-11-18] MEDS: CITALOPRAM HYDROBROMIDE 20 MG TAB PO SCH (08:36)
[2016-11-18] MEDS: FOLIC ACID 1 MG TAB PO SCH (08:36)
[2016-11-18] MEDS: LISINOPRIL 10 MG TAB PO SCH (08:36)
[2016-11-18] MEDS: THIAMINE HCL 100 MG TAB PO SCH (08:36)
[2016-11-18] MEDS: LACTULOSE SYRUP 20 GM/30 ML CUP PO SCH (08:36)
[2016-11-18] MEDS: SODIUM CHLORIDE 0.9% FLUSH 10 ML FLUSH IV FLUSH SCH (08:38)
[2016-11-18 08:41] LABS: BICARBONATE 22.2 MEQ/L (21.0-32.0); POTASSIUM 4.4 MEQ/L (3.5-5.1)
[2016-11-18] MEDS: CARVEDILOL 3.125 MG TAB PO SCH (08:57)
[2016-11-18 09:41] LABS: BASOPHILS 2 % (0-2); EOSINOPHILS 9 % (0-4); NEUTROPHIL # MANUAL DIFF 0.7 TH/MM3 (1.8-7.7); PLATELET ESTIMATE SMEAR LOW (NORMAL); PLATELET MORPHOLOGY NORMAL (NORMAL); POLYS (SEG NEUTROPHILS) 46 % (16-70); SCAN/DIFF FINAL DIFF MANUAL; WBC DIFF SAMPLE 100
--- NOTE | 2016-11-18 11:43 | HHI.FPPN ---
Subjective Remarks No acute events overnight. Patient is sitting in bed with hair net over head s/ p lice diagnosis and treatment initiation yesterday. Patient says yesterday she was scratching her scalp to the point of bleeding in the scalp. Patient has felt remarkably better overnight after treatment and she is no longer itchy or complaining of pain. Nursing staff is planning on doing another lice treatment today. (Nadja Monique MD R2) Objective Vitals Vital Signs Date Time Temp Pulse Resp B/P Pulse Ox O2 Delivery O2 Flow Rate FiO2 11/18/16 11:00 45 19 117/55 93 11/18/16 10:59 19 11/18/16 10:00 48 11/18/16 09:00 52 11/18/16 08:00 48 11/18/16 07:00 49 11/18/16 07:00 52 17 136/68 94 11/18/16 06:00 47 11/18/16 05:00 47 11/18/16 04:00 44 11/18/16 03:39 97.8 48 18 120/63 93 11/18/16 03:00 48 11/18/16 02:00 47 11/18/16 01:00 47 11/18/16 00:00 45 11/17/16 23:00 97.8 50 18 124/67 95 11/17/16 23:00 55 11/17/16 22:27 128/68 11/17/16 22:05 21 11/17/16 22:00 50 11/17/16 21:00 54 11/17/16 20:00 54 11/17/16 19:00 54 11/17/16 19:00 97.9 58 170/76 95 11/17/16 18:00 50 11/17/16 17:00 54 11/17/16 16:00 97.5 56 18 179/84 97 11/17/16 14:00 54 11/17/16 13:00 50 11/17/16 12:00 98.0 51 18 137/73 96 11/17/16 12:00 48 I/O 11/17/16 11/17/16 11/17/16 11/18/16 11/18/16 11/18/16 07:00 15:00 23:00 07:00 15:00 23:00 Intake Total 480 ml Balance 480 ml Intake Oral 480 ml # Voids 2 # Bowel Movements 1 (Nadja Monique MD R2) Result Diagram: 11/18/16 0711 11/18/16 0711 Objective Remarks GENERAL: elderly female lying in bed, in NAD, pleasant , hair net over head and hair SKIN: No rashes, ecchymoses or lesions. Cool and dry. HEAD: no parasites visualized under hair net, hair is covered in cream, no significant lacerations or oozing from scalp EYES: EOMI. No scleral icterus. No injection. CARDIOVASCULAR: Regular rate and rhythm, systolic murmur RUSB. Peripheral pulses 2+. RESPIRATORY: Clear to auscultation. Breath sounds equal bilaterally. No wheezes , rales, or rhonchi. GASTROINTESTINAL: Abdomen soft, nontender, nondistended. No hepatosplenomegaly appreciated, or palpable masses. No guarding. MUSCULOSKELETAL: Trace b/l lower extremity edema (Nadja Monique MD R2) A/P Assessment and Plan 76-year-old female admitted on November 12 for substernal chest pain and diagnosis of Takotsubo cardiomyopathy, since resolved and stable on medication. Discharge Planning Patient will require PT at SNF Case management has secured spot at [place] [facility] signed in patients chart (Nadja Monique MD R2) Assessment and Plan Patient seen and examined. Case reviewed and discussed with the resident team. Agree with plan of care as discussed with me an documented in the resident note. (Jacky Chen MD) Problem List: (1) STEMI (ST elevation myocardial infarction) Status: Acute Plan: - Cardiac cath 11/12/2016 findings of takotsubo cardiomyopathy, mild nonobstructive coronary disease, mildly elevated left-sided filling pressure - Echo demonstrating normal left ventricular size, mild concentric left ventricular hypertrophy, left ventricular systolic function mildly reduced estimated ejection fraction 45-50% - Continue coreg 3.125 mg po q12h - Continue lisinopril 10 mg po daily - continue amlodipine 2.5 mg po daily - Clonidine 0.2mg po q6h prn - Holding aspirin due to thrombocytopenia - Cardiology signed off on 11/16/16 - f/u with cardiology outpatient within 1 week after d/c (2) Pancytopenia Status: Acute Plan: - May be related to chronic alcoholism. -Patient had a CT guided bone marrow biopsy at [facility] on 10/25. Spoke with nurse at Dr. Bruce's office. -Results of bone marrow biopsy revealed normocellular bone marrow with trilineage hematopoiesis, and no increase of blasts. Reveals no evidence of leukemia, lymphoma, granulomas., or other infiltrative processes. There is mild dyserythropoiesis; however, this finding is nonspecific. -Cytogenetic analysis shows a normal female karyotype - Patient does have a history of pancytopenia per prior EMR records - Peripheral smear showing moderate pancytopenia finding are relatively nonspecific - f/u with [employer] (who did biopsy) to further investigate causes for pancytopenia (3) Cirrhosis Status: Chronic Plan: Continue home lactulose - f/u with GI (4) Chronic alcohol abuse Status: Chronic Plan: MV, folic acid, thiamine prescribed (5) HTN (hypertension) Status: Chronic Plan: Continue lisinopril, coreg, amlodipine (6) Hypothyroidism Status: Chronic Plan: Continue home Synthroid (7) Depression Status: Chronic Plan: Continue home Celexa (8) UTI (urinary tract infection) Status: Resolved Plan: Resolved (9) Head lice Status: Acute Plan: -1% permethrin cream x1 dose complete - no scabies / lice seen on head today, pt asymptomatic - permethrin cream x 1 prescribed as outpatient, may be used in 7 days (10) Nutrition, metabolism, and development symptoms Status: Resolved Plan: Continue heart healthy diet and by mouth fluids as tolerated, and is recommended at her SNF and PCP (Nadja Monique MD R2) Problem Qualifiers (1) STEMI (ST elevation myocardial infarction): Qualified Code: I21.3 - ST elevation myocardial infarction (STEMI), unspecified artery Nadja Monique MD R2 Nov 18, 2016 11:43 Jacky Chen MD Nov 18, 2016 18:16
[2016-11-18] MEDS: clonazePAM 0.5 MG TAB PO PRN (13:16)
--- NOTE | 2016-11-18 14:30 | HHI.DCPOC ---
Discharge Care Plan Diagnosis: (1) Thrombocytopenia (2) CAD (coronary artery disease) (3) Hypokalemia (4) STEMI (ST elevation myocardial infarction) (5) Cirrhosis (6) Depression (7) Hypothyroidism (8) HTN (hypertension) (9) Chronic alcohol abuse (10) Head lice Goals to Promote Your Health * To prevent worsening of your condition and complications * To maintain your health at the optimal level Directions to Meet Your Goals Take your medications as prescribed Follow your dietary instruction Follow activity as directed Keep your appointments as scheduled Take your immunizations and boosters as scheduled If your symptoms worsen call your PCP, if no PCP go to Urgent Care Center or Emergency Room Smoking is Dangerous to Your Health. Avoid second hand smoke Call the 24-hour hour crisis hotline for domestic abuse at Nadja Monique MD R2 Nov 18, 2016 14:30
[2016-11-18] MEDS ORDERED: FOLI1TAB6 PO (14:48)
[2016-11-18] MEDS ORDERED: THERM PO (14:48)
[2016-11-18] MEDS ORDERED: GNP100TA3 PO (14:48)
[2016-11-18] MEDS ORDERED: LISI10TA3 PO (14:48)
[2016-11-18] MEDS ORDERED: PANT40TA3 PO (14:48)
[2016-11-18] MEDS ORDERED: AMLO5 PO (14:48)
[2016-11-18] MEDS ORDERED: CLON.2 PO (14:48)
[2016-11-18] MEDS ORDERED: PERM5CRE TOPICAL (14:48)
[2016-11-18] MEDS ORDERED: POTA20TA5 PO (14:48)
--- NOTE | 2016-11-18 18:55 | HHI.DS ---
Discharge Summary Admission Date Nov 12, 2016 at 20:50 Discharge Date: Nov 18, 2016 Admitting Diagnosis STEMI (1) STEMI (ST elevation myocardial infarction) Diagnosis: Principal Plan: - Cardiac cath 11/12/2016 findings of takotsubo cardiomyopathy, mild nonobstructive coronary disease, mildly elevated left-sided filling pressure - Echo demonstrating normal left ventricular size, mild concentric left ventricular hypertrophy, left ventricular systolic function mildly reduced estimated ejection fraction 45-50% - Continue coreg 3.125 mg po q12h - Continue lisinopril 10 mg po daily - continue amlodipine 2.5 mg po daily - Clonidine 0.2mg po q6h prn - Holding aspirin due to thrombocytopenia - Cardiology signed off on 11/16/16 - f/u with cardiology outpatient within 1 week after d/c (2) Pancytopenia Diagnosis: Secondary Plan: - May be related to chronic alcoholism. -Patient had a CT guided bone marrow biopsy at [facility] on 10/25. Spoke with nurse at Dr. Bruce's office. -Results of bone marrow biopsy revealed normocellular bone marrow with trilineage hematopoiesis, and no increase of blasts. Reveals no evidence of leukemia, lymphoma, granulomas., or other infiltrative processes. There is mild dyserythropoiesis; however, this finding is nonspecific. -Cytogenetic analysis shows a normal female karyotype - Patient does have a history of pancytopenia per prior EMR records - Peripheral smear showing moderate pancytopenia finding are relatively nonspecific - f/u with [facility] [employer] (who did biopsy) to further investigate causes for pancytopenia (3) Cirrhosis Diagnosis: Secondary Plan: Continue home lactulose - f/u with GI (4) Chronic alcohol abuse Diagnosis: Principal Plan: MV, folic acid, thiamine prescribed (5) HTN (hypertension) Diagnosis: Secondary Plan: Continue lisinopril, coreg, amlodipine (6) Hypothyroidism Diagnosis: Secondary Plan: Continue home Synthroid (7) Depression Diagnosis: Secondary Plan: Continue home Celexa (8) UTI (urinary tract infection) Diagnosis: Secondary Plan: Resolved (9) Head lice Diagnosis: Secondary Plan: -1% permethrin cream x1 dose complete - no scabies / lice seen on head today, pt asymptomatic - permethrin cream x 1 prescribed as outpatient, may be used in 7 days (10) Nutrition, metabolism, and development symptoms Diagnosis: Secondary Plan: Continue heart healthy diet and by mouth fluids as tolerated, and is recommended at her SNF and PCP CBC/BMP: 11/18/16 0711 11/18/16 0711 Significant Findings Laboratory Tests Test 11/15/16 11/16/16 11/17/16 11/18/16 22:13 03:36 06:31 07:11 Sodium Level 135 MEQ/L (136-145) Creatinine 1.13 MG/DL 1.02 MG/DL (0.50-1.00) (0.50-1.00) Estimat Glomerular Filtration 47 ML/MIN (>89) 53 ML/MIN (>89) 58 ML/MIN (>89) 67 ML/MIN (>89) Rate Calcium Level 7.8 MG/DL 8.4 MG/DL 8.3 MG/DL (8.5-10.1) (8.5-10.1) (8.5-10.1) Ammonia 33 MCMOL/L (11-32) White Blood Count 2.1 TH/MM3 2.0 TH/MM3 1.5 TH/MM3 (4.0-11.0) (4.0-11.0) (4.0-11.0) Red Blood Count 2.62 MIL/MM3 2.73 MIL/MM3 2.63 MIL/MM3 (4.00-5.30) (4.00-5.30) (4.00-5.30) Hemoglobin 8.9 GM/DL 9.3 GM/DL 8.9 GM/DL (11.6-15.3) (11.6-15.3) (11.6-15.3) Hematocrit 26.1 % 27.6 % 26.6 % (35.0-46.0) (35.0-46.0) (35.0-46.0) Red Cell Distribution Width 18.6 % 18.5 % 18.7 % (11.6-17.2) (11.6-17.2) (11.6-17.2) Platelet Count 50 TH/MM3 57 TH/MM3 57 TH/MM3 (150-450) (150-450) (150-450) Monocytes (%) (Auto) 8.1 % (0.0-8.0) Eosinophils (%) (Auto) 6.1 % (0.0-4.0) 5.0 % (0.0-4.0) 6.1 % (0.0-4.0) Neutrophils # (Auto) 1.2 TH/MM3 1.3 TH/MM3 0.7 TH/MM3 (1.8-7.7) (1.8-7.7) (1.8-7.7) Lymphocytes # (Auto) 0.6 TH/MM3 0.5 TH/MM3 0.6 TH/MM3 (1.0-4.8) (1.0-4.8) (1.0-4.8) Platelet Estimate LOW (NORMAL) LOW (NORMAL) LOW (NORMAL) Mean Corpuscular Volume 100.9 FL 100.9 FL (80.0-100.0) (80.0-100.0) Ovalocytes 1+ (NORMAL) Acanthocytes OCC (NORMAL) Prothrombin Time 12.5 SEC (9.8-11.6) Chloride Level 109 MEQ/L 108 MEQ/L (98-107) (98-107) Aspartate Amino Transf 53 U/L (15-37) (AST/SGOT) Albumin 2.7 GM/DL (3.4-5.0) Eosinophils % 9 % (0-4) Neutrophils # (Manual) 0.7 TH/MM3 (1.8-7.7) Random Glucose 65 MG/DL (74-106) PE at Discharge GENERAL: elderly female lying in bed, in NAD, pleasant , hair net over head and hair SKIN: No rashes, ecchymoses or lesions. Cool and dry. HEAD: no parasites visualized under hair net, hair is covered in cream, no significant lacerations or oozing from scalp EYES: EOMI. No scleral icterus. No injection. CARDIOVASCULAR: Regular rate and rhythm, systolic murmur RUSB. Peripheral pulses 2+. RESPIRATORY: Clear to auscultation. Breath sounds equal bilaterally. No wheezes , rales, or rhonchi. GASTROINTESTINAL: Abdomen soft, nontender, nondistended. No hepatosplenomegaly appreciated, or palpable masses. No guarding. MUSCULOSKELETAL: Trace b/l lower extremity edema Hospital Course 76 yr old F with PMHx of chronic homelessness, chronic alcohol abuse, CAD s/p 5 stents, cirrhosis, pancytopenia, HTN, hypothyroidism, depression, admitted on 11/12/16 with sub sternal chest pain. Cardiology consulted. Cardiac catheterization procedure 11/12/16 showed findings of takotsubo cardiomyopathy ( broken-heart syndrome), mild nonobstructive coronary disease, and mildly elevated left-sided filling pressure. Patient is stable on ta inhibitors and calcium channel blockers. Cardiology signed off 11/16/16. Patient also has history of pancytopenia. Bone marrow biopsy 10/25/16 records obtain from [facility] revealed normocellular bone marrow. Peripheral smear 11/15/16 showed moderate nonspecific pancytopenia, most likely related to chronic alcoholism. We recommend continued follow-up with her shovel oiler, kenzie Bruce, to follow-up cause of pancytopenia. Head lice has been treated with permethrin cream, and additional dose has been prescribed for patient to use in one week if she prefers. Head is currently clear lice. Patient is to be sent to SNF where she can have long-term rehabilitation. Pt Condition on Discharge: Stable Discharge Disposition: Discharge to SNF Discharge Instructions DIET: Follow Instructions for: As Tolerated, No Restrictions Activities you can perform: Regular-No Restrictions Nadja Monique MD R2 Nov 18, 2016 18:55
== END 2016-11-18 16:36 | DRG 287 ==
LOC: NEPE 18:45 → NEDA 20:50 → HCIS 21:24
PROVIDERS: ADMIT Family Medicine; ATTEND Family Medicine
PROC: 4A023N7 Measurement of Cardiac Sampling and Pressure, Left Heart, Percutaneous Approach (ICD-10-PCS; principal; 2016-11-12)
PROC: B2111ZZ Fluoroscopy of Multiple Coronary Arteries using Low Osmolar Contrast (ICD-10-PCS; 2016-11-12)
PROC: B2151ZZ Fluoroscopy of Left Heart using Low Osmolar Contrast (ICD-10-PCS; 2016-11-12)
PROC: B3101ZZ Fluoroscopy of Thoracic Aorta using Low Osmolar Contrast (ICD-10-PCS; 2016-11-12)
DX: I51.81 Takotsubo syndrome (principal); D61.818 Other pancytopenia; K70.30 Alcoholic cirrhosis of liver without ascites; I10 Essential (primary) hypertension; B85.0 Pediculosis due to Pediculus humanus capitis; F10.20 Alcohol dependence, uncomplicated; N39.0 Urinary tract infection, site not specified; I25.10 Atherosclerotic heart disease of native coronary artery without angina pectoris; F17.210 Nicotine dependence, cigarettes, uncomplicated; E03.9 Hypothyroidism, unspecified; E78.00 Pure hypercholesterolemia, unspecified; K21.9 Gastro-esophageal reflux disease without esophagitis; I77.819 Aortic ectasia, unspecified site; Y90.9 Presence of alcohol in blood, level not specified; F32.9 Major depressive disorder, single episode, unspecified; F41.9 Anxiety disorder, unspecified; E87.6 Hypokalemia; Z59.0 Homelessness; I25.2 Old myocardial infarction; Z79.899 Other long term (current) drug therapy; Z95.5 Presence of coronary angioplasty implant and graft
CPT/HCPCS: 71010; 80048; 80053; 80061; 81001; 82140; 82310; 82435; 82550; 82565; 82607; 82746; 82947; 83735; 83880; 84132; 84295; 84484; 84520; 85007; 85025; 85027; 85060; 85610; 85730; 93005; 93306; 93458; 93567; 96374; C1760; C1769; C1887; C1893; G0269; J0696; J1200; J1644; J2250; J2270; J3010; J7030; Q9967

== ENCOUNTER 2016-12-10 15:59 | Emergency (ER) | payer MEDICARE ==
[~2016-12-10] VITALS: Ht 157.5 cm; Wt 50.0 kg
[~2016-12-10 15:59] MED LIST changes: +AMLO5 PO; -BACT800T5 PO; +CLON.2 PO; +FOLI1TAB6 PO; +GNP100TA3 PO; +PANT40TA3 PO; +PERM5CRE TOPICAL; +POTA20TA5 PO; +THERM PO
[2016-12-10 16:44] VITALS: BP 181/87; PULSE 95; RESP 22; TEMP 99.1; O2SAT 93
[2016-12-10] MEDS ORDERED: ONDANSETRON ODT 4 MG TAB PO ONE (16:45)
--- NOTE | 2016-12-10 17:42 | PD ---
HPI Chief Complaint: Alcohol/Drug Intoxication Time Seen by Provider: 17:27 Travel History International Travel<30 days: No Contact w/Intl Traveler<30days: No Traveled to known affect area: No History of Present Illness HPI Patient is a 76-year-old female presents emergency department for evaluation of alcohol intoxication and fall. Patient states she's been staying in a tow in town after her just and she is been "drinking away her sorrows". Patient states the With Her for an Hour and When She Tried to Stand She Fell Backwards Hitting Her Head and Neck Prompted a Spann Act Today. Patient Is Complaining of Headache As Well As a Rash to Bilateral Lower Extremities. States That the Bone on for Some Time. States She Drank a Fifth of Vodka Today. PFSH Past Medical History Arthritis: No Asthma: No Autoimmune Disease: No Blood Disorders: No Anxiety: Yes Depression: Yes Heart Rhythm Problems: No Cancer: No (ABN PAP) Cardiovascular Problems: Yes ([place] AND STENTS) High Cholesterol: Yes Chemotherapy: No Chest Pain: Yes Congestive Heart Failure: No Cirrhosis: Yes COPD: No Cerebrovascular Accident: No Diabetes: No Diminished Hearing: No Endocrine: No Gastrointestinal Disorders: No GERD: Yes Glaucoma: No Genitourinary: No Headaches: Yes Hepatitis: No Hiatal Hernia: No Heparin Induced Thrombocytopen: No Hypertension: Yes Immune Disorder: No Kidney Stones: No Musculoskeletal: Yes (FACIAL BONES BROKEN) Neurologic: No Psychiatric: Yes Reproductive: No Respiratory: No Migraines: No Myocardial Infarction: Yes Radiation Therapy: No Renal Failure: No Seizures: No Sickle Cell Disease: No Sleep Apnea: No Thyroid Disease: Yes (HYPOTHYROID) Ulcer: Yes ?: Not Menopausal: Yes Past Surgical History AICD: No Appendectomy: Yes Arteriovenous Shunt: No Body Medical Devices: STENTS Cardiac Surgery: Yes (MULTIPLE PREVIOUS STENTS) Cholecystectomy: Yes Coronary Stent: Yes (X 5) Genitourinary Surgery: Yes (GALLBLADDER REMOVED 1958) Insulin Pump: No Joint Replacement: No Pacemaker: No Other Surgery: No Social History Alcohol Use: Yes (STATES DRANK 1 PINT LIQUOR TONIGHT) Tobacco Use: Yes (1/2 pp/DAY) Substance Use: No Allergies-Medications (Allergen,Severity, Reaction): Coded Allergies: No Known Allergies (Verified , 12/10/16) Reported Meds & Prescriptions Reported Meds & Active Scripts Active Gnp Vitamin B-1 (Thiamine HCl) 100 Mg Tab 100 Mg PO DAILY . Potassium Chloride Microencaps 20 Meq Tab 20 Meq PO QID . Pantoprazole (Pantoprazole Sodium) 40 Mg Tab 40 Mg PO DAILY . Thera M Plus (Multivitamins/Minerals Therapeutic) 1 Tab 1 Tab PO DAILY . Lisinopril 10 Mg Tab 10 Mg PO DAILY . Folic Acid 1 Mg Tablet 1 Mg PO DAILY . Catapres (Clonidine) 0.2 Mg Tab 0.2 Mg PO Q6H PRN . Norvasc (Amlodipine Besylate) 5 Mg Tab 2.5 Mg PO DAILY . Levothyroxine (Levothyroxine Sodium) 75 Mcg Tab 75 Mcg PO DAILY Omeprazole 20 Mg Tab 20 Mg PO DAILY Citalopram (Citalopram Hydrobromide) 10 Mg Tab 10 Mg PO DAILY Lisinopril 10 Mg Tab 10 Mg PO BID Coreg (Carvedilol) 3.125 Mg Tab 3.125 Mg PO BID Lactulose Liq (Lactulose) 10 Gm/15 Ml Soln 30 Ml PO DAILY Potassium Chloride ER (Potassium Chloride) 20 Meq Tab 20 Meq PO DAILY Lasix (Furosemide) 40 Mg Tab 40 Mg PO DAILY Isosorbide Mononitrate ER (Isosorbide Mononitrate) 60 Mg Tab 60 Mg PO DAILY Review of Systems Except as stated in HPI: all other systems reviewed are Neg Physical Exam Narrative GENERAL: Well-developed well-nourished no obvious distress, smells of alcohol. SKIN: Focused skin assessment warm/dry. Abrasion to the occipital parietal area on the right. There is also some small petechiae over the bilateral tibia anteriorly as well as a bruise over the left forearm which is healing well. HEAD: Atraumatic. Normocephalic. EYES: Pupils equal and round. No scleral icterus. No injection or drainage. ENT: No nasal bleeding or discharge. Mucous membranes pink and moist. NECK: Trachea midline. No JVD. CARDIOVASCULAR: Regular rate and rhythm. No murmur appreciated. RESPIRATORY: No accessory muscle use. Clear to auscultation. Breath sounds equal bilaterally. GASTROINTESTINAL: Abdomen soft, non-tender, nondistended. Hepatic and splenic margins not palpable. MUSCULOSKELETAL: No obvious deformities. No clubbing. No cyanosis. No edema. NEUROLOGICAL: Awake and alert. No obvious cranial nerve deficits. Motor grossly within normal limits. Normal speech. PSYCHIATRIC: Appropriate mood and affect; insight and judgment normal. Data Data Last Documented VS Vital Signs Date Time Temp Pulse Resp B/P (MAP) Pulse Ox O2 Delivery O2 Flow Rate FiO2 12/11/16 00:55 96 18 186/86 (119) 97 Room Air 12/10/16 16:44 99.1 Orders Orders Ondansetron Odt (Zofran Odt) (12/10/16 16:45) Complete Blood Count With Diff (12/10/16 16:58) Comprehensive Metabolic Panel (12/10/16 16:58) Urinalysis - C+S If Indicated (12/10/16 16:58) Blood Glucose (12/10/16 16:58) Diet Regular Basic (12/10/16 Dinner) Drug Screen, Random Urine (12/10/16 16:58) Alcohol (Ethanol) (12/10/16 16:58) Act Partial Throm Time (Ptt) (12/10/16 17:40) Prothrombin Time / Inr (Pt) (12/10/16 17:40) Ibuprofen (Motrin) (12/10/16 17:45) Ct Brain W/O Iv Contrast(Rout) (12/10/16 ) Ct Cerv Spine W/O Contrast (12/10/16 ) Electrocardiogram (12/10/16 ) Ondansetron Inj (Zofran Inj) (12/10/16 19:00) Sodium Chlor 0.9% 1000 Ml Inj (Ns 1000 M (12/10/16 19:00) Ketorolac Inj (Toradol Inj) (12/10/16 21:00) Promethazine Inj (Phenergan Inj) (12/10/16 23:00) Acetaminophen (Tylenol) (12/11/16 00:45) Labs Laboratory Tests Test 12/10/16 17:45 White Blood Count 7.7 TH/MM3 Red Blood Count 3.87 MIL/MM3 Hemoglobin 12.5 GM/DL Hematocrit 38.1 % Mean Corpuscular Volume 98.4 FL Mean Corpuscular Hemoglobin 32.3 PG Mean Corpuscular Hemoglobin Concent 32.8 % Red Cell Distribution Width 16.7 % Platelet Count 154 TH/MM3 Mean Platelet Volume 9.0 FL Neutrophils (%) (Auto) 69.0 % Lymphocytes (%) (Auto) 24.5 % Monocytes (%) (Auto) 4.2 % Eosinophils (%) (Auto) 1.7 % Basophils (%) (Auto) 0.6 % Neutrophils # (Auto) 5.3 TH/MM3 Lymphocytes # (Auto) 1.9 TH/MM3 Monocytes # (Auto) 0.3 TH/MM3 Eosinophils # (Auto) 0.1 TH/MM3 Basophils # (Auto) 0.0 TH/MM3 CBC Comment DIFF FINAL Differential Comment Prothrombin Time 11.6 SEC Prothromb Time International Ratio 1.0 RATIO Activated Partial Thromboplast Time 28.5 SEC Blood Urea Nitrogen 29 MG/DL Creatinine 1.43 MG/DL Random Glucose 82 MG/DL Total Protein 8.5 GM/DL Albumin 3.5 GM/DL Calcium Level 8.4 MG/DL Alkaline Phosphatase 119 U/L Aspartate Amino Transf (AST/SGOT) 78 U/L Alanine Aminotransferase (ALT/SGPT) 44 U/L Total Bilirubin 0.5 MG/DL Sodium Level 138 MEQ/L Potassium Level 3.9 MEQ/L Chloride Level 107 MEQ/L Carbon Dioxide Level 18.7 MEQ/L Anion Gap 12 MEQ/L Estimat Glomerular Filtration Rate 36 ML/MIN Ethyl Alcohol Level 275 MG/DL [facility] Medical Decision Making Medical Screen Exam Complete: Yes Emergency Medical Condition: Yes Differential Diagnosis Alcohol intoxication, closed head injury, thrombocytopenia. Narrative Course Patient roomed emergency department, alcohol level is 275 at 17:45. CBC within normal limits, chemistry does show minimal metabolic acidosis with a creatinine 1.43. BUN of 29. She is given a liter fluid. AST is 78, ALT is 44, review of her records show that she is presenting to this emergency department intoxicated multiple times in the past. Last [address] 12/10/16 0000 Signed Impressions: Service Date/Time: Saturday, December 10, 2016 18:09 - CONCLUSION: Normal examination for a patient of this age. Vj Ac MD Cervical Spine CT 12/10/16 0000 Signed Impressions: Service Date/Time: Saturday, December 10, 2016 18:09 - CONCLUSION: 1. No acute fracture. Moderate degenerative change. Vj Ac MD This time the patient is medically cleared to either sleep it off in the emergency department or if she can find a sober ride home this would be preferable. At her alcohol level patient will be of reasonable alcohol level to discharged to her own care at approximately 2:00 in the morning after reassess. Until such time she will be sleeping it off in the emergency department. Patient discussed with Dr. Perez at 0100. Patient was reassessed at 1230a, she is having "headache that is making her nauseated." She appears comfortable, no nuchal rigidity, no focal deficits. She has no ride home and therefore i will avoid sedating medications. She was offered LP to exclude traumatic SAH, after discussing R/B/C/A of LP and risk of missing SAH she verbalized understanding of and elected to defer LP accepting risks of missing SAH. Diagnosis Primary Impression: Concussion Qualified Codes: S06.0X0A - Concussion without loss of consciousness, initial encounter Additional Impression: Alcohol intoxication Qualified Codes: F10.920 - Alcohol use, unspecified with intoxication, uncomplicated Disposition: 01 DISCHARGE HOME Condition: Stable Nate Heredia MD Dec 10, 2016 17:41
[2016-12-10] MEDS ORDERED: IBUPROFEN 600 MG TAB PO ONE (17:45)
--- NOTE | 2016-12-10 18:30 | RADRPT ---
EXAM DATE/TIME: 12/10/2016 18:09 [facility] COMPARISON: No previous studies available for comparison. INDICATIONS : Trauma, patient fell. RADIATION DOSE: 19.80 CTDIvol (mGy) MEDICAL HISTORY : Cardiovascular disease. SURGICAL HISTORY : Appendectomy. Cholecystectomy. ENCOUNTER: Initial ACUITY: 1 day PAIN SCALE: 5/10 LOCATION: neck TECHNIQUE: Volumetric scanning of the cervical spine was performed. Multiplanar reconstructions in the sagittal, coronal and oblique axial planes were performed. Using automated exposure control and adjustment o f the mA and/or kV according to patient size, radiation dose was kept as low as reasonably achievable to obtain optimal diagnostic quality images. DICOM format image data is available electronically f or review and comparison. FINDINGS: There is moderate degenerative disc disease. Partial fusion across C4-5. No significant bony canal st enosis. Multilevel facet arthropathy. Minimal anterolisthesis of C7 on T1. CONCLUSION: 1. No acute fracture. Moderate degenerative change. Vj Ac MD on December 10, 2016 at 18:27 Board Certified Radiologist. This report was verified electronically.
[2016-12-10 18:58] LABS: ANION GAP 12 MEQ/L (5-15); APTT (PATIENT) 28.5 SEC (24.3-30.1); AST (GOT) 78 U/L (15-37); BICARBONATE 18.7 MEQ/L (21.0-32.0); BLOOD UREA NITROGEN 29 MG/DL (7-18); CHLORIDE 107 MEQ/L (98-107); GLOMERULAR FILTRATION RATE 36 ML/MIN (>89); POTASSIUM 3.9 MEQ/L (3.5-5.1); PROTHROMBIN TIME - PATIENT 11.6 SEC (9.8-11.6); SODIUM (NA) 138 MEQ/L (136-145)
[2016-12-10 18:59] LABS: ALCOHOL 275 MG/DL (0-5); ALT (GPT) 44 U/L (10-53)
[2016-12-10] MEDS ORDERED: SODIUM CHLOR 0.9% 1000 ML INJ 1,000 ML IV ONE (19:00)
[2016-12-10] MEDS ORDERED: ONDANSETRON HCL 4 MG/2 ML VIAL IV PUSH ONE (19:00)
[2016-12-10 19:02] LABS: ALKALINE PHOSPHATASE 119 U/L (45-117); TOTAL BILIRUBIN ADULT 0.5 MG/DL (0.2-1.0)
[2016-12-10 19:16] LABS: AUTOMATED NEUTROPHIL # 5.3 TH/MM3 (1.8-7.7); BASOPHIL % 0.6 % (0.0-2.0); EOSINOPHIL # 0.1 TH/MM3 (0-0.4); EOSINOPHIL % 1.7 % (0.0-4.0); HEMATOCRIT 38.1 % (35.0-46.0); HEMO FLAGS DIFF FINAL; LYMPH % 24.5 % (9.0-44.0); LYMPHOCYTE # 1.9 TH/MM3 (1.0-4.8); MEAN CELL VOLUME 98.4 FL (80.0-100.0); MEAN CORPUSCULAR HEMOGLOBIN 32.3 PG (27.0-34.0); MEAN CORPUSCULAR HGB CONC 32.8 % (32.0-36.0); MONO % 4.2 % (0.0-8.0); PLATELET COUNT 154 TH/MM3 (150-450); RED BLOOD COUNT 3.87 MIL/MM3 (4.00-5.30); RED CELL DISTRIBUTION WIDTH 16.7 % (11.6-17.2); WHITE BLOOD COUNT 7.7 TH/MM3 (4.0-11.0)
[2016-12-10 19:26] VITALS: BP 179/85; PULSE 95; RESP 20; O2SAT 98
--- NOTE | 2016-12-10 19:38 | RADRPT ---
EXAM DATE/TIME: 12/10/2016 18:09 [facility] COMPARISON: No previous studies available for comparison. INDICATIONS : TRauma, patient fell, hit back of head. RADIATION DOSE: 30.87 CTDIvol (mGy) MEDICAL HISTORY : Cardiovascular disease. SURGICAL HISTORY : Appendectomy. Cholecystectomy. ENCOUNTER: Initial ACUITY: 1 day PAIN SCALE: 5/10 LOCATION: cranial TECHNIQUE: Multiple contiguous axial images were obtained of the head. Using automated exposure control and adj ustment of the mA and/or kV according to patient size, radiation dose was kept as low as reasonably a chievable to obtain optimal diagnostic quality images. DICOM format image data is available electro nically for review and comparison. FINDINGS: CEREBRUM: The ventricles are normal for age. No evidence of midline shift, mass lesion, hemorrhage or acute in farction. No extra-axial fluid collections are seen. POSTERIOR FOSSA: The cerebellum and brainstem are intact. The 4th ventricle is midline. The cerebellopontine angle i s unremarkable. EXTRACRANIAL: The visualized portion of the orbits is intact. SKULL: The calvaria is intact. No evidence of skull fracture. CONCLUSION: Normal examination for a patient of this age. Vj Ac MD on December 10, 2016 at 19:35 Board Certified Radiologist. This report was verified electronically.
[2016-12-10] MEDS ORDERED: KETOROLAC TROMETHAMINE 30 MG/ML (IVP) VIAL IV PUSH ONE (21:00)
[2016-12-10] MEDS ORDERED: PROMETHAZINE INJ 25 MG/ML VIAL IM ONE (23:00)
[2016-12-11] MEDS ORDERED: ACETAMINOPHEN 500 MG CPLT PO ONE (00:45)
[2016-12-11 00:55] VITALS: BP 186/86; PULSE 96; RESP 18; O2SAT 97
[2016-12-11] MEDS ORDERED: ONDANSETRON HCL 4 MG/2 ML VIAL IM ONE (04:30)
--- NOTE | 2016-12-11 17:15 | EKG ---
Date Performed: 12/10/2016 Time Performed: 19:17:04 PTAGE: 76 years EKG: Sinus rhythm SEPTAL MYOCARDIAL INFARCTION, OF INDETERMINATE AGE Compared to PREVIOUS TRACING , the anteroseptal T wave inversions have improved. PREVIOUS TRACIN 06.06 DOCTOR: Pedrito Shelley Interpretating Date/Time 12/11/2016 17:14:48
== END 2016-12-11 08:39 | disposition home or self-care (01) ==
LOC: NEPD 15:59
DX: S06.0X0A Concussion without loss of consciousness, initial encounter (principal); S00.01XA Abrasion of scalp, initial encounter; S50.12XA Contusion of left forearm, initial encounter; R23.3 Spontaneous ecchymoses; F10.129 Alcohol abuse with intoxication, unspecified; Y90.8 Blood alcohol level of 240 mg/100 ml or more; E78.00 Pure hypercholesterolemia, unspecified; I10 Essential (primary) hypertension; I25.2 Old myocardial infarction; E03.9 Hypothyroidism, unspecified; F17.210 Nicotine dependence, cigarettes, uncomplicated; W18.09XA Striking against other object with subsequent fall, initial encounter
CPT/HCPCS: 70450; 72125; 80053; 80307; 85025; 85610; 85730; 93005; 96361; 96372; 96374; 96375; 99285; J1885; J2405; J2550; J7030

== ENCOUNTER 2016-12-11 13:40 | Inpatient (IN) | payer MEDICARE ==
[~2016-12-11] VITALS: Ht 162.6 cm; Wt 65.0 kg
[~2016-12-11 13:40] MED LIST changes: -PERI8.6T PO; -PERM5CRE TOPICAL; -WALKER WHEELS/F1 MIS
[2016-12-11 13:42] VITALS: BP 167/77; PULSE 114; RESP 20; TEMP 98.6; O2SAT 97
[2016-12-11] MEDS ORDERED: THIAMINE INJ 100 MG in SODIUM CHLORIDE 0.9% INJ 100 ML IV ONE (14:15)
[2016-12-11] MEDS ORDERED: PANTOPRAZOLE SODIUM 40 MG VIAL IVP ONE (14:15)
[2016-12-11] MEDS ORDERED: ONDANSETRON HCL 4 MG/2 ML VIAL IVP ONE (14:15)
[2016-12-11 14:58] LABS: BASOPHIL # 0.1 TH/MM3 (0-0.2); BASOPHIL % 0.8 % (0.0-2.0); EOSINOPHIL % 0.2 % (0.0-4.0); HEMATOCRIT 32.3 % (35.0-46.0); HEMO FLAGS DIFF FINAL; LYMPH % 14.3 % (9.0-44.0); LYMPHOCYTE # 1.3 TH/MM3 (1.0-4.8); MEAN CELL VOLUME 98.7 FL (80.0-100.0); MEAN CORPUSCULAR HGB CONC 33.4 % (32.0-36.0); MONO % 7.2 % (0.0-8.0); NEUT % 77.5 % (16.0-70.0); PLATELET COUNT 142 TH/MM3 (150-450); RED BLOOD COUNT 3.27 MIL/MM3 (4.00-5.30); RED CELL DISTRIBUTION WIDTH 16.9 % (11.6-17.2); WHITE BLOOD COUNT 9.1 TH/MM3 (4.0-11.0)
--- NOTE | 2016-12-11 15:19 | RADRPT ---
EXAM DATE/TIME: 12/11/2016 14:23 [place] COMPARISON: CHEST SINGLE AP, November 12, 2016, 19:59. INDICATIONS : Cough. MEDICAL HISTORY : Cardiovascular disease. SURGICAL HISTORY : Appendectomy. Cholecystectomy. ENCOUNTER: Initial ACUITY: 1 day PAIN SCORE: 0/10 LOCATION: Bilateral chest FINDINGS: A single view of the chest demonstrates the lungs to be symmetrically aerated without evidence of mas s, infiltrate or effusion. The cardiomediastinal contours are unremarkable. Osseous structures are intact. CONCLUSION: The lungs are clear. Gonzalo Snowden MD on December 11, 2016 at 15:17 Board Certified Radiologist. This report was verified electronically.
[2016-12-11 15:22] LABS: BICARBONATE 17.1 MEQ/L (21.0-32.0); POTASSIUM 3.8 MEQ/L (3.5-5.1)
--- NOTE | 2016-12-11 15:43 | PD ---
HPI Chief Complaint: GI Complaint Time Seen by Provider: 13:58 Travel History International Travel<30 days: No Contact w/Intl Traveler<30days: No Traveled to known affect area: No History of Present Illness HPI 76yo F with PMH of GERD and alcohol abuse here with c/o abdominal pain, nausea, vomiting after drinking alcohol today. Pt was just seen last night and discharged at 9am this morning. She went to drink 1/2 pint of vodka today. Said there is some specks of black in it. Denies any fall today. Denies any fever, cough, chest pain, sob, focal weakness or numbness. Pt still has abrasion mid parietal scalp that was evaluated yesterday. CT brain and CT cspine was negative yesterday. Denies any new trauma. PFSH Past Medical History Arthritis: No Asthma: No Autoimmune Disease: No Blood Disorders: No Anxiety: Yes Depression: Yes Heart Rhythm Problems: No Cardiovascular Problems: Yes High Cholesterol: Yes Chemotherapy: No Chest Pain: Yes Congestive Heart Failure: No Cirrhosis: Yes COPD: No Cerebrovascular Accident: No Diabetes: No Diminished Hearing: No Endocrine: No Gastrointestinal Disorders: No GERD: Yes Glaucoma: No Genitourinary: No Headaches: Yes Hepatitis: No Hiatal Hernia: No Heparin Induced Thrombocytopen: No Hypertension: Yes Immune Disorder: No Kidney Stones: No Musculoskeletal: Yes (FACIAL BONES BROKEN) Neurologic: No Psychiatric: Yes Reproductive: No Respiratory: No Migraines: No Myocardial Infarction: Yes Radiation Therapy: No Renal Failure: No Seizures: No Sickle Cell Disease: No Sleep Apnea: No Thyroid Disease: Yes (HYPOTHYROID) Ulcer: Yes ?: Not Menopausal: Yes Past Surgical History AICD: No Appendectomy: Yes Arteriovenous Shunt: No Body Medical Devices: STENTS Cardiac Surgery: Yes (MULTIPLE PREVIOUS STENTS) Cholecystectomy: Yes Coronary Stent: Yes (X 5) Genitourinary Surgery: Yes (GALLBLADDER REMOVED 1958) Insulin Pump: No Joint Replacement: No Pacemaker: No Other Surgery: Yes (cholecyestectomy) Social History Alcohol Use: Yes (daily pint of liiquer ) Tobacco Use: Yes (1/2 pp/DAY) Substance Use: No Allergies-Medications (Allergen,Severity, Reaction): Coded Allergies: No Known Allergies (Verified , 12/11/16) Reported Meds & Prescriptions Reported Meds & Active Scripts Active Gnp Vitamin B-1 (Thiamine HCl) 100 Mg Tab 100 Mg PO DAILY . Thera M Plus (Multivitamins/Minerals Therapeutic) 1 Tab 1 Tab PO DAILY . Folic Acid 1 Mg Tablet 1 Mg PO DAILY . Catapres (Clonidine) 0.2 Mg Tab 0.2 Mg PO Q6H PRN . Norvasc (Amlodipine Besylate) 5 Mg Tab 2.5 Mg PO DAILY . Levothyroxine (Levothyroxine Sodium) 75 Mcg Tab 75 Mcg PO DAILY Omeprazole 20 Mg Tab 20 Mg PO DAILY Citalopram (Citalopram Hydrobromide) 10 Mg Tab 10 Mg PO DAILY Lisinopril 10 Mg Tab 10 Mg PO BID Coreg (Carvedilol) 3.125 Mg Tab 3.125 Mg PO BID Lactulose Liq (Lactulose) 10 Gm/15 Ml Soln 30 Ml PO DAILY Potassium Chloride ER (Potassium Chloride) 20 Meq Tab 20 Meq PO DAILY Lasix (Furosemide) 40 Mg Tab 40 Mg PO DAILY Isosorbide Mononitrate ER (Isosorbide Mononitrate) 60 Mg Tab 60 Mg PO DAILY Review of Systems Except as stated in HPI: all other systems reviewed are Neg Physical Exam Narrative GEN: 76yo F in mild distress. SKIN: Warm and dry. HEAD: Normocephalic, atraumatic. EYES: Pupils reactive and equal. NECK: Trachea midline, No JVD. CV: S1, S2. Lungs: CTA B/l, equal breath sounds. Abd: sot, Mild ttp epigastric region. No rebound tenderness or guarding. EXT: Soft calf, no edema. NEURO: No focal neurologic deficits. Data Data Last Documented VS Vital Signs Date Time Temp Pulse Resp B/P (MAP) Pulse Ox O2 Delivery O2 Flow Rate FiO2 12/11/16 14:10 18 12/11/16 13:42 98.6 114 167/77 (107) 97 Room Air Orders Orders Basic Metabolic Panel (Bmp) (12/11/16 14:15) Complete Blood Count With Diff (12/11/16 14:15) Lipase (12/11/16 14:15) Ondansetron Inj (Zofran Inj) (12/11/16 14:15) Pantoprazole Inj (Protonix Inj) (12/11/16 14:15) Electrocardiogram (12/11/16 ) Alcohol (Ethanol) (12/11/16 14:15) Thiamine Inj (Thiamine Inj) (12/11/16 14:15) Chest, Single Ap (12/11/16 ) Troponin I (12/11/16 14:15) Vascular Access Team Consult/P PRN (12/11/16 14:29) Vascular Poc Ultrasound (12/11/16 ) Ct Abd/Pel W/O Iv Contrast (12/11/16 ) Sodium Chlorid 0.9% 500 Ml Inj (Ns 500 M (12/11/16 15:45) Urinalysis - C+S If Indicated (12/11/16 15:43) Metoclopramide Inj (Reglan Inj) (12/11/16 16:45) Sodium Chlor 0.9% 1000 Ml Inj (Ns 1000 M (12/11/16 16:45) Morphine Inj (Morphine Inj) (12/11/16 16:45) Type And Screen (12/11/16 16:38) Sodium Chlorid 0.9%... W/Octreotide Inj (12/11/16 16:38) Sodium Chloride 0.9... W/Pantoprazole In (12/11/16 16:38) Admit Order (Ed Use Only) (12/11/16 16:46) Admit To Inpatient (12/11/16 ) Vital Signs (Adult) Q4H (12/11/16 16:44) Activity Oob With Assistance (12/11/16 16:44) Wire Coater / Telemetry .CONTINUOUS (12/11/16 16:44) Intake + Output CARLOS.QSHIFT (12/11/16 16:44) Diet Npo (12/11/16 Dinner) Sodium Chlor 0.9% 1000 Ml Inj (Ns 1000 M (12/11/16 16:44) Sodium Chloride 0.9% Flush (Ns Flush) (12/11/16 16:45) Sodium Chloride 0.9% Flush (Ns Flush) (12/11/16 21:00) Acetaminophen (Tylenol) (12/11/16 16:45) Ondansetron Inj (Zofran Inj) (12/11/16 16:45) Naloxone Inj (Narcan Inj) (12/11/16 16:45) Docusate Sodium-Senna (Joleen-Colace) (12/11/16 21:00) Magnesium Hydroxide Liq (Milk Of Magnesi (12/11/16 16:45) Sennosides (Senokot) (12/11/16 16:45) Bisacodyl Supp (Dulcolax Supp) (12/11/16 16:45) Lactulose Liq (Lactulose Liq) (12/11/16 16:45) Inpatient Certification (12/11/16 ) Hemoglobin (Hgb) (12/11/16 20:00) Hemoglobin (Hgb) (12/12/16 00:00) Hemoglobin (Hgb) (12/12/16 04:00) Hemoglobin (Hgb) (12/12/16 08:00) Labs Laboratory Tests Test 12/11/16 14:25 White Blood Count 9.1 TH/MM3 Red Blood Count 3.27 MIL/MM3 Hemoglobin 10.8 GM/DL Hematocrit 32.3 % Mean Corpuscular Volume 98.7 FL Mean Corpuscular Hemoglobin 33.0 PG Mean Corpuscular Hemoglobin Concent 33.4 % Red Cell Distribution Width 16.9 % Platelet Count 142 TH/MM3 Mean Platelet Volume 9.0 FL Neutrophils (%) (Auto) 77.5 % Lymphocytes (%) (Auto) 14.3 % Monocytes (%) (Auto) 7.2 % Eosinophils (%) (Auto) 0.2 % Basophils (%) (Auto) 0.8 % Neutrophils # (Auto) 7.0 TH/MM3 Lymphocytes # (Auto) 1.3 TH/MM3 Monocytes # (Auto) 0.7 TH/MM3 Eosinophils # (Auto) 0.0 TH/MM3 Basophils # (Auto) 0.1 TH/MM3 CBC Comment DIFF FINAL Differential Comment Blood Urea Nitrogen 33 MG/DL Creatinine 1.94 MG/DL Random Glucose 93 MG/DL Calcium Level 8.3 MG/DL Sodium Level 137 MEQ/L Potassium Level 3.8 MEQ/L Chloride Level 105 MEQ/L Carbon Dioxide Level 17.1 MEQ/L Anion Gap 15 MEQ/L Estimat Glomerular Filtration Rate 25 ML/MIN Troponin I 0.02 NG/ML Lipase 244 U/L Ethyl Alcohol Level 159 MG/DL [facility] Medical Decision Making Medical Screen Exam Complete: Yes Emergency Medical Condition: Yes Interpretation(s) EKG: Sinus tachycardia at 108bpm. Normal axis. No ST segment elevation or depression. Q wave V1, V2. Differential Diagnosis Alcoholic gastritis vs. pancreatitis vs. peptic ulcer disease vs. atypical ACS vs. dehydration vs. electrolyte abnormality vs. GI bleed vs. vern ramos tear Narrative Course 76yo F with alcohol abuse here with abdominal pain and vomiting. Labs reviewed , no leukocytosis. H/H low at 10.8/32.3, decreased from 12.5/38.1 from yesterday. CO2 low which is same from yesterday. BUN/creatinine which is worse than yesterday at 33/1.94. Troponin negative. Lipase normal. Blood alcohol 159. Pt given zofran, pantoprazole and thiamine as well as NS IVF 500cc. Pt reevaluated at bedside and has had 2 episodes of vomiting and it appears black so did hemaprompt on the gastric content and it is positive. Pt given reglan for nausea as well. Abdominal exam was not very remarkable but pt still complains of pain so will give morphine 2mg and obtain CTa/p. Pt given NS IVF 500cc and will give another liter of NS IVF. Will place pt on protonix and octreotide. May just be vern ramos tear but pt is chronic alcoholic who is unreliable with follow up and has never had GI bleed before. UA and CT still pending. Discussed with Dr. Calixto and accepted to her service. HemaPrompt Point of Care Internal Pos. & Neg. Controls: Passed Gastric Specimen Occult Blood: Positive Diagnosis Primary Impression: GI bleed Qualified Codes: K92.2 - Gastrointestinal hemorrhage, unspecified Admitting Information Admitting Physician Requests: it Kanwal Osorio DO Dec 11, 2016 15:43
[2016-12-11] MEDS ORDERED: SODIUM CHLORID 0.9% 500 ML INJ 500 ML IV ONE (15:45)
[2016-12-11] MEDS: PANTOPRAZOLE INJ 80 MG in SODIUM CHLORIDE 0.9% INJ 100 ML IV SCH (16:38)
[2016-12-11] MEDS ORDERED: METOCLOPRAMIDE INJ 10 MG in SODIUM CHLORIDE 0.9% INJ 50 ML IV ONE (16:45)
[2016-12-11] MEDS ORDERED: MAGNESIUM HYDROXIDE SUSP 30 ML CUP PO PRN (16:45)
[2016-12-11] MEDS ORDERED: SODIUM CHLORIDE 0.9% FLUSH 10 ML FLUSH IV FLUSH PRN (16:45)
[2016-12-11] MEDS ORDERED: NALOXONE HCL 0.4 MG/ML AMP IV PRN (16:45)
[2016-12-11] MEDS ORDERED: BISACODYL 10 MG SUPP RECTAL PRN (16:45)
[2016-12-11] MEDS ORDERED: MORPHINE SULFATE 4 MG/ML INJ IV PUSH ONE (16:45)
[2016-12-11] MEDS ORDERED: ACETAMINOPHEN 325 MG TAB PO PRN (16:45)
[2016-12-11] MEDS ORDERED: SODIUM CHLOR 0.9% 1000 ML INJ 1,000 ML IV ONE (16:45)
[2016-12-11] MEDS ORDERED: LACTULOSE SYRUP 20 GM/30 ML CUP PO PRN (16:45)
[2016-12-11] MEDS ORDERED: SENNOSIDES 8.6 MG TAB PO PRN (16:45)
[2016-12-11] MEDS ORDERED: FLUMAZENIL 0.5 MG/5 ML VIAL IV PUSH PRN (17:00)
[2016-12-11] MEDS ORDERED: LORazepam 2 MG/ML VIAL IV PUSH PRN ×4 (17:00)
[2016-12-11] MEDS ORDERED: LORazepam 2 MG TAB PO PRN (17:00)
[2016-12-11] MEDS ORDERED: cloNIDine HCL 0.2 MG TAB PO PRN (17:15)
--- NOTE | 2016-12-11 17:16 | HHI.HP ---
[facility] Service [facility] Primary Care Physician No Primary Care Physician Admission Diagnosis GI bleed Diagnoses: Chief Complaint: Abdominal pain, hematemesis after drinking vodka Travel History International Travel<30 Days: No Contact w/Intl Traveler <30 Da: No Traveled to Known Affected Are: No History of Present Illness This is a 76-year-old female with history of alcoholism, cirrhosis of the liver , GERD, history of coronary artery disease s/p multiple stent placement and recent admission due to takotsubo cardiomyopathy who presented with abdominal pain and hematemesis after drinking vodka. Patient was seen earlier in the emergency department due to a fall from drinking alcohol and was discharged early this morning. Patient stated that after she was discharged in emergency department she went to drink a half a pint of vodka then right after she started having abdominal pain, intractable emesis described as dark blood so she returned to the hospital. Per Dr. Osorio she checked Gastroccult and it was positive. Patient stated that abdominal pain located in the epigastric and right upper quadrant area and she continues to have it. Patient patient had episode of emesis in the ED but none noted during the interview. All other review of system reviewed and negative. Past Family Social History Past Medical History chronic homelessness, chronic alcohol abuse, CAD s/p 5 stents, cirrhosis, pancytopenia, HTN, hypothyroidism, and depression Past Surgical History Cardiac catheterization procedure 11/12/16 showed findings of takotsubo cardiomyopathy (broken-heart syndrome) Cholecystectomy Reported Medications Reported Meds & Active Scripts Active Gnp Vitamin B-1 (Thiamine HCl) 100 Mg Tab 100 Mg PO DAILY . Thera M Plus (Multivitamins/Minerals Therapeutic) 1 Tab 1 Tab PO DAILY . Folic Acid 1 Mg Tablet 1 Mg PO DAILY . Catapres (Clonidine) 0.2 Mg Tab 0.2 Mg PO Q6H PRN . Norvasc (Amlodipine Besylate) 5 Mg Tab 2.5 Mg PO DAILY . Levothyroxine (Levothyroxine Sodium) 75 Mcg Tab 75 Mcg PO DAILY Omeprazole 20 Mg Tab 20 Mg PO DAILY Citalopram (Citalopram Hydrobromide) 10 Mg Tab 10 Mg PO DAILY Lisinopril 10 Mg Tab 10 Mg PO BID Coreg (Carvedilol) 3.125 Mg Tab 3.125 Mg PO BID Lactulose Liq (Lactulose) 10 Gm/15 Ml Soln 30 Ml PO DAILY Potassium Chloride ER (Potassium Chloride) 20 Meq Tab 20 Meq PO DAILY Lasix (Furosemide) 40 Mg Tab 40 Mg PO DAILY Isosorbide Mononitrate ER (Isosorbide Mononitrate) 60 Mg Tab 60 Mg PO DAILY Allergies: Coded Allergies: No Known Allergies (Verified , 12/11/16) Active Ordered Medications Current Medications Ondansetron HCl (Zofran Inj) 4 mg ONCE ONCE IVP Last administered on 12/11/16 15:12; Start 12/11/16 at 14:15; Stop 12/11/16 at 14:18; Status DC Pantoprazole Sodium (Protonix Inj) 40 mg ONCE ONCE IVP Last administered on 15:12; Start 12/11/16 at 14:15; Stop 12/11/16 at 14:18; Status DC Thiamine HCl 100 mg/Sodium Chloride 101 ml @ 101 mls/hr ONCE ONCE IV Last administered on 12/11/16 15:12; Start 12/11/16 at 14:15; Stop 12/11/16 at 15:14; Status DC Sodium Chloride 500 ml @ 500 mls/hr BOLUS ONCE IV Last administered on 15:45; Start 12/11/16 at 15:45; Stop 12/11/16 at 16:44; Status DC Metoclopramide HCl 10 mg/Sodium Chloride 52 ml @ 104 mls/hr ONCE ONCE IV Last administered on 12/11/16 16:49; Start 12/11/16 at 16:45; Stop 12/11/16 at 17: 14; Status DC Sodium Chloride 1,000 ml @ 999 mls/hr BOLUS ONCE IV Last administered on 16:48; Start 12/11/16 at 16:45; Stop 12/11/16 at 17:45 Morphine Sulfate (Morphine Inj) 2 mg ONCE ONCE IV PUSH Last administered on 16:49; Start 12/11/16 at 16:45; Stop 12/11/16 at 16:46; Status DC Octreotide Acetate 500 mcg/ Sodium Chloride 500.5 ml @ 50 mls/hr Q10H1M IV ; Start 12/11/16 at 16:38 Pantoprazole Sodium 80 mg/ Sodium Chloride 100 ml @ 10 mls/hr Q10H IV ; Start 12/11/16 at 16:38 Sodium Chloride 1,000 ml @ 100 mls/hr Q10H IV ; Start 12/11/16 at 16:44; Status UNV Sodium Chloride (NS Flush) 2 ml UNSCH PRN IV FLUSH FLUSH AFTER USING IV ACCESS ; Start 12/11/16 at 16:45; Status UNV Sodium Chloride (NS Flush) 2 ml BID IV FLUSH ; Start 12/11/16 at 21:00; Status UNV Acetaminophen (Tylenol) 650 mg Q4H PRN PO TEMP > 100.4; Start 12/11/16 at 16:45 ; Status UNV Ondansetron HCl (Zofran Inj) 4 mg Q6H PRN IVP NAUSEA OR VOMITING; Start at 16:45; Status UNV Naloxone HCl (Narcan Inj) 0.4 mg UNSCH PRN IV SEE LABEL COMMENTS; Start at 16:45; Status UNV Senna/Docusate Sodium (Joleen-Colace) 1 tab BID PO ; Start 12/11/16 at 21:00; Status UNV Magnesium Hydroxide (Milk Of Magnesia Liq) 30 ml Q12H PRN PO MILD - MODERATE CONSTIPATION; Start 12/11/16 at 16:45; Status UNV Sennosides (Senokot) 17.2 mg Q12H PRN PO MODERATE - SEVERE CONSTIPATION; Start 12/11/16 at 16:45; Status UNV Bisacodyl (Dulcolax Supp) 10 mg DAILY PRN RECTAL SEVERE CONSITIPATION; Start at 16:45; Status UNV Lactulose (Lactulose Liq) 30 ml DAILY PRN PO SEVERE CONSITIPATION; Start at 16:45; Status UNV Flumazenil (Romazicon Inj) 0.2 mg Q1M PRN IV PUSH SEE LABEL COMMENTS; Start 12/11/16 at 17:00; Status UNV Lorazepam (Ativan) 1 mg Q4H PRN PO CIWA 8 - 10; Start 12/11/16 at 17:00; Status UNV Lorazepam (Ativan Inj) 1 mg Q4H PRN IV PUSH CIWA 8 - 10; Start 12/11/16 at 17:00 ; Status UNV Lorazepam (Ativan) 2 mg Q2H PRN PO CIWA 11-14; Start 12/11/16 at 17:00; Status UNV Lorazepam (Ativan Inj) 2 mg Q2H PRN IV PUSH CIWA 11-14; Start 12/11/16 at 17:00 ; Status UNV Lorazepam (Ativan Inj) 2 mg Q1H PRN IV PUSH CIWA 15-20; Start 12/11/16 at 17:00 ; Status UNV Lorazepam (Ativan Inj) 2 mg Q15M PRN IV PUSH CIWA > 20; Start 12/11/16 at 17:00 ; Status UNV Amlodipine Besylate (Norvasc) 2.5 mg DAILY PO ; Start 12/12/16 at 09:00; Status UNV Carvedilol (Coreg) 3.125 mg BID PO ; Start 12/11/16 at 21:00; Status UNV Citalopram Hydrobromide (CeleXA) 10 mg DAILY PO ; Start 12/12/16 at 09:00; Status UNV Clonidine (Catapres) 0.2 mg Q6H PRN PO SBP>160, DBP>90; Start 12/11/16 at 17:15 ; Status UNV Folic Acid (Folate) 1 mg DAILY PO ; Start 12/12/16 at 09:00; Status UNV Isosorbide Mononitrate (Imdur) 60 mg DAILY PO ; Start 12/12/16 at 09:00; Status UNV Lactulose (Lactulose Liq) 30 ml DAILY PO ; Start 12/12/16 at 09:00; Status UNV Levothyroxine Sodium (Synthroid) 75 mcg DAILY PO ; Start 12/12/16 at 09:00; Status UNV Lisinopril (Prinivil) 10 mg BID PO ; Start 12/11/16 at 21:00; Status UNV Multivitamins/ Minerals Therapeutic (Theragran M Tab) 1 tab DAILY PO ; Start 12/12/16 at 09:00; Status UNV Potassium Chloride (KCl) 20 meq DAILY PO ; Start 12/12/16 at 09:00; Status UNV Thiamine HCl (Vitamin B1) 100 mg DAILY PO ; Start 12/12/16 at 09:00; Status UNV Family History Patient states she has extensive history of cancer in the family but they all and she is only one alive. Social History Patient is homeless. smoked 5 cigarettes day since the age of 32. Drinks about half a pint of vodka daily. She stated that she does not drink she does get the shakes. Physical Exam Vital Signs Vital Signs Date Time Temp Pulse Resp B/P (MAP) Pulse Ox O2 Delivery O2 Flow Rate FiO2 12/11/16 14:10 18 12/11/16 13:42 98.6 114 20 167/77 (107) 97 Room Air Physical Exam GENERAL: This is a well-nourished, well-developed patient, in no apparent distress. SKIN: No rashes, ecchymoses or lesions. Cool and dry. HEAD: Atraumatic. Normocephalic. No temporal or scalp tenderness. EYES: Pupils equal round and reactive. Extraocular motions intact. No scleral icterus. No injection or drainage. ENT: Nose without bleeding, purulent drainage or septal hematoma. Throat without erythema, tonsillar hypertrophy or exudate. Uvula midline. Airway patent. NECK: Trachea midline. No JVD or lymphadenopathy. Supple, nontender, no meningeal signs. CARDIOVASCULAR: Regular rate and rhythm without murmurs, gallops, or rubs. RESPIRATORY: Clear to auscultation. Breath sounds equal bilaterally. No wheezes , rales, or rhonchi. GASTROINTESTINAL: Abdomen soft, positive tenderness palpation of right upper quadrant epigastric area to deep palpation, nondistended. No hepato-splenomegaly , or palpable masses. No guarding. MUSCULOSKELETAL: Extremities without clubbing, cyanosis, or edema. No joint tenderness, effusion, or edema noted. No calf tenderness. Negative Homans sign bilaterally. NEUROLOGICAL: Awake and alert. Cranial nerves II through XII intact. Motor and sensory grossly within normal limits. Five out of 5 muscle strength in all muscle groups. Normal speech. Laboratory Laboratory Tests Test 12/11/16 14:25 White Blood Count 9.1 Red Blood Count 3.27 Hemoglobin 10.8 Hematocrit 32.3 Mean Corpuscular Volume 98.7 Mean Corpuscular Hemoglobin 33.0 Mean Corpuscular Hemoglobin Concent 33.4 Red Cell Distribution Width 16.9 Platelet Count 142 Mean Platelet Volume 9.0 Neutrophils (%) (Auto) 77.5 Lymphocytes (%) (Auto) 14.3 Monocytes (%) (Auto) 7.2 Eosinophils (%) (Auto) 0.2 Basophils (%) (Auto) 0.8 Neutrophils # (Auto) 7.0 Lymphocytes # (Auto) 1.3 Monocytes # (Auto) 0.7 Eosinophils # (Auto) 0.0 Basophils # (Auto) 0.1 CBC Comment DIFF FINAL Differential Comment Blood Urea Nitrogen 33 Creatinine 1.94 Random Glucose 93 Calcium Level 8.3 Sodium Level 137 Potassium Level 3.8 Chloride Level 105 Carbon Dioxide Level 17.1 Anion Gap 15 Estimat Glomerular Filtration Rate 25 Troponin I 0.02 Lipase 244 Ethyl Alcohol Level 159 Result Diagram: 12/11/16 1425 12/11/16 1425 Imaging Last Impressions Chest X-Ray 12/11/16 0000 Signed Impressions: Service Date/Time: Sunday, December 11, 2016 14:23 - CONCLUSION: The lungs are clear. MD Domingo Valle VTE Risk Assessment Caprini VTE Risk Assessment: Mod/High Risk (score >= 2) VTE Pharm Contraindication: Active bleeding Caprini Risk Assessment Model Point Value = 1 Point Value = 2 Point Value = 3 Point Value = 5 Age 41-60 Minor surgery BMI > 25 kg/m2 Swollen legs Varicose veins or History of unexplained or recurrent spontaneous Oral contraceptives or hormone replacement Sepsis (< 1 month) Serious lung disease, including pneumonia (< 1 month) Abnormal pulmonary function Acute myocardial infarction Congestive heart failure (< 1 month) History of inflammatory bowel disease Medical patient at bed rest Age 61-74 Arthroscopic surgery Major open surgery (> 45 min) Laparoscopic surgery (> 45 min) Malignancy Confined to bed (> 72 hours) Immobilizing plaster cast Central venous access Age >= 75 History of VTE Family history of VTE Factor V Leiden Prothrombin [id number] Lupus anticoagulant Anticardiolipin antibodies Elevated serum homocysteine Heparin-induced thrombocytopenia Other congenital or acquired thrombophilia Stroke (< 1 month) Elective arthroplasty Hip, pelvis, or leg fracture Acute spinal cord injury (< 1 month) Prophylaxis Regimen Total Risk Factor Score Risk Level Prophylaxis Regimen 0-1 Low Early ambulation 2 Moderate Order ONE of the following: *Sequential Compression Device (SCD) *Heparin 5000 units SQ BID 3-4 Higher Order ONE of the following medications: *Heparin 5000 units SQ TID *Enoxaparin/Lovenox 40 mg SQ daily (WT < 150 kg, CrCl > 30 mL/min) *Enoxaparin/Lovenox 30 mg SQ daily (WT < 150 kg, CrCl > 10-29 mL/min) *Enoxaparin/Lovenox 30 mg SQ BID (WT < 150 kg, CrCl > 30 mL/min) AND/OR *Sequential Compression Device (SCD) 5 or more Highest Order ONE of the following medications: *Heparin 5000 units SQ TID (Preferred with Epidurals) *Enoxaparin/Lovenox 40 mg SQ daily (WT < 150 kg, CrCl > 30 mL/min) *Enoxaparin/Lovenox 30 mg SQ daily (WT < 150 kg, CrCl > 10-29 mL/min) *Enoxaparin/Lovenox 30 mg SQ BID (WT < 150 kg, CrCl > 30 mL/min) AND *Sequential Compression Device (SCD) Assessment and Plan Assessment and Plan 76-year-old alcoholic and cirrhosis of liver who presented with abdominal pain and hematemesis after drinking vodka Hematemesis/abdominal pain -Labs reviewed. Positive Gastroccult. Hemoglobin 10.8. Yesterday was 12.5. Patient's baseline has been around 9 during recent admission. Continue to monitor with serial H&H. -Pending CT scan the abdomen and pelvis ordered in emergency department. -Protonix drips were started in the emergency department will continue Protonix drip. -Consult GI for possible endoscopy. -Continue with supportive care with IV fluids and antibiotics. We'll be cautious with IV fluids secondary to history cardiomyopathy. Acute renal failure -Baseline in November 2016 was 0.83. Creatinine is now 1.94. Most likely secondary to dehydration. -Will give IV fluids but need to be cautious due to patient's history of cardiomyopathy. Hold Lasix. Will also need to hold lisinopril. -Strict ins and outs. Continue to monitor creatinine. Chronic alcoholism -Education given. despite dire consequences patient continues to drink. Tobacco abuse -Education given. Patient refused any supplement. Cirrhosis of liver -Continue with home lactulose. takotsubo cardiomyopathy/pancytopenia/GERD/coronary artery disease/hypertension /depression -Continue a home medication except for lisinopril and Lasix. Aspirin was held during last admission due to thrombocytopenia. DVT prophylaxis -Chemoprophylaxis contraindicated secondary to GI bleed. We'll place SCDs. Discussed Condition With patient Physician Certification 2 Midnight Certification Type: Admission for Inpatient Services Order for Inpatient Services The services are ordered in accordance with Medicare regulations or non- Medicare payer requirements, as applicable. In the case of services not specified as inpatient-only, they are appropriately provided as inpatient services in accordance with the 2-midnight benchmark. Estimated LOS (days): 2 2 days is the estimated time the patient will need to remain in the hospital, assuming treatment plan goals are met and no additional complications. Post-Hospital Plan: [place] Linda Calixto MD Dec 11, 2016 17:16
[2016-12-11] MEDS: OCTREOTIDE INJ 500 MCG in SODIUM CHLORID 0.9% 500 ML INJ 500 ML IV SCH (17:53)
[2016-12-11 17:57] VITALS: BP 174/77; PULSE 92; RESP 18; O2SAT 95
--- NOTE | 2016-12-11 18:11 | RADRPT ---
EXAM DATE/TIME: 12/11/2016 17:30 [place] COMPARISON: CT ABDOMEN & PELVIS W/O CONTRAST, May 16, 2016, 17:02. INDICATIONS : Abdomen pain for one day. ORAL CONTRAST: No oral contrast ingested. RADIATION DOSE: 9.96 CTDIvol (mGy) MEDICAL HISTORY : Hypertension. Myocardial infarction. SURGICAL HISTORY : Coronary artery stent. Appendectomy.Cholecystectomy. ENCOUNTER: Initial ACUITY: 1 day PAIN SCALE: 3/10 LOCATION: Bilateral upper quadrant TECHNIQUE: Volumetric scanning of the abdomen and pelvis was performed. Using automated exposure control and ad justment of the mA and/or kV according to patient size, radiation dose was kept as low as reasonably achievable to obtain optimal diagnostic quality images. DICOM format image data is available electro nically for review and comparison. FINDINGS: Prior CT in May 2016 had demonstrated induration and loss of delineation of the structures about the pancreas. On today's examination, the configuration of the head of the pancreas and periportal region is very similar with loss of delineation of the structures, probable fluid or induration, thic kening of the duodenal wall. The body and tail the pancreas has a normal configuration. The liver i s grossly unremarkable for noncontrasted technique. Mild lobular contour and enlargement of the righ t lobe of the liver is stable. No evidence of free fluid in the abdomen or pelvis. Moderate size hi atus hernia similar to prior. The spleen, kidneys, and adrenal glands are unremarkable for noncontra st technique. Urinary bladder margins are smooth. The inguinal region is unremarkable. Visualized lower lungs are clear. Wide windows for bony detail demonstrate degenerative changes in the posterio r elements of the lower lumbar spine. CONCLUSION: When compared to prior CT in May 2016, very similar appearance to the region of the head of the pancreas with loss of delineation of the fat planes, probable induration, and free fluid and wall thi ckening about the duodenum. Moderate size hiatus hernia is also stable. Gonzalo Snowden MD on December 11, 2016 at 18:05 Board Certified Radiologist. This report was verified electronically.
[2016-12-11] MEDS: SODIUM CHLORIDE 0.9% FLUSH 10 ML FLUSH IV FLUSH SCH (19:56)
[2016-12-11 20:00] VITALS: BP 115/55; PULSE 87; RESP 18; O2SAT 96
[2016-12-11] MEDS ORDERED: LISINOPRIL 10 MG TAB PO SCH (21:00)
[2016-12-11] MEDS: DOCUSATE SODIUM 50 MG/SENNA 8.6 MG TAB PO SCH (21:00)
[2016-12-11 22:00] VITALS: PULSE 98
[2016-12-11 22:05] VITALS: BP 166/63; PULSE 94; RESP 16; TEMP 98.6; O2SAT 94
[2016-12-11] MEDS: CARVEDILOL 3.125 MG TAB PO SCH (22:57)
[2016-12-11] MEDS: SODIUM CHLOR 0.9% 1000 ML INJ 1,000 ML IV SCH (22:58)
[2016-12-11] MEDS: MORPHINE SULFATE 4 MG/ML INJ IV PUSH PRN (22:59)
[2016-12-11] MEDS: LORazepam 1 MG TAB PO PRN (22:59)
[2016-12-11 23:25] VITALS: BP 183/82; PULSE 93; RESP 16; TEMP 98.2; O2SAT 92
[2016-12-12 03:52] LABS: MEAN CELL VOLUME 99.7 FL (80.0-100.0); MEAN CORPUSCULAR HEMOGLOBIN 33.8 PG (27.0-34.0); MEAN CORPUSCULAR HGB CONC 33.9 % (32.0-36.0); PLATELET COUNT 71 TH/MM3 (150-450); RED CELL DISTRIBUTION WIDTH 16.6 % (11.6-17.2); WHITE BLOOD COUNT 5.7 TH/MM3 (4.0-11.0)
[2016-12-12 04:00] VITALS: BP 167/79; PULSE 66; RESP 16; TEMP 97.6; O2SAT 94
[2016-12-12 04:01] LABS: REVIEW FLAG FINAL
[2016-12-12 04:14] LABS: BICARBONATE 20.9 MEQ/L (21.0-32.0); POTASSIUM 4.3 MEQ/L (3.5-5.1)
[2016-12-12] MEDS: PANTOPRAZOLE INJ 80 MG in SODIUM CHLORIDE 0.9% INJ 100 ML IV SCH (05:06)
[2016-12-12] MEDS: OCTREOTIDE INJ 500 MCG in SODIUM CHLORID 0.9% 500 ML INJ 500 ML IV SCH (05:07)
[2016-12-12] MEDS: LEVOTHYROXINE SODIUM 75 MCG TAB PO SCH (06:08)
[2016-12-12] MEDS: MORPHINE SULFATE 4 MG/ML INJ IV PUSH PRN ×3 (06:09→23:25)
[2016-12-12 08:00] VITALS: PULSE 68
[2016-12-12 08:05] VITALS: BP 163/74; PULSE 69; RESP 16; TEMP 98.3; O2SAT 95
--- NOTE | 2016-12-12 08:22 | PD.CONS ---
HPI History of Present Illness This is a 76 year old female patient with a history of ETOH abuse, liver cirrhosis, pancreatitis, esophagitis, gastritis, gastrointestinal bleeding who presented to the ER for evaluation of hematemesis consisting of coffee ground emesis. She woke up yesterday and started having vomiting consisting of coffee grounds. She has associated abdominal pain, described as an intermittent sharp/ crampy at times pain in her epigastric area without any radiation. She has a history of GERD, with daily symptoms despite taking either omeprazole or pantoprazole. She has been having dark tarry stools, but no rita red bleeding. She has a history of liver cirrhosis secondary to ETOH abuse and continues to binge drink. She reports that she will drink a pint daily and then not drink for 3-4 months. She last drank yesterday, 1/[address] pelvis (12/11/16)----> When compared to prior CT in May 2016, very similar appearance to the region of the head of the pancreas with loss of delineation of the fat planes, probable induration, and free fluid and wall thickening about the duodenum. Moderate size hiatus hernia is also stable. She was last evaluated with EGD (05/17/16)---> esophagitis, gastritis. Pathology reactive/chemical gastropathy in the background of mild chronic gastritis, negative for helicobacter pylori. (Vicky Rodriguez) PFSH Past Medical History Liver cirrhosis Pancreatitis Hx esophageal varices Anemia HTN Hypothyroidism ETOH abuse CAD, S/P 5 stents Pancytopenia Depression Past Surgical History Cardiac catheterization procedure 11/12/16 showed findings of takotsubo cardiomyopathy (broken-heart syndrome) EGD/Colonoscopy Tx for epistaxis Cholecystectomy Appendectomy (Vicky Rodriguez) Coded Allergies: No Known Allergies (Verified , 12/11/16) Medications Allergies Coded Allergies Type Severity Reaction Last Updated Verified No Known Allergies 12/11/16 Yes Active Scripts Medications Dose Route/Sig Max Daily Dose Days Date Category Dose Instructions Gnp Vitamin B-1 (Thiamine HCl) 100 Mg Tab 100 Mg PO DAILY 11/18/16 Rx . Thera M Plus (Multivitamins/Minerals Therapeutic) 1 Tab 1 Tab PO DAILY 11/18/16 Rx . Folic Acid 1 Mg Tablet 1 Mg PO DAILY 11/18/16 Rx . Catapres (Clonidine) 0.2 Mg Tab 0.2 Mg PO Q6H PRN 11/18/16 Rx . Norvasc (Amlodipine Besylate) 5 Mg Tab 2.5 Mg PO DAILY 11/18/16 Rx . Levothyroxine (Levothyroxine Sodium) 75 Mcg Tab 75 Mcg PO DAILY 11/12/16 Rx Omeprazole 20 Mg Tab 20 Mg PO DAILY 11/12/16 Rx Citalopram (Citalopram Hydrobromide) 10 Mg Tab 10 Mg PO DAILY 11/12/16 Rx Lisinopril 10 Mg Tab 10 Mg PO BID 11/12/16 Rx Coreg (Carvedilol) 3.125 Mg Tab 3.125 Mg PO BID 11/12/16 Rx Lactulose Liq (Lactulose) 10 Gm/15 Ml Soln 30 Ml PO DAILY 11/12/16 Rx Potassium Chloride ER (Potassium Chloride) 20 Meq Tab 20 Meq PO DAILY 11/12/16 Rx Lasix (Furosemide) 40 Mg Tab 40 Mg PO DAILY 11/12/16 Rx Isosorbide Mononitrate ER (Isosorbide Mononitrate) 60 Mg Tab 60 Mg PO DAILY 11/12/16 Rx Family History "Cancer has taken my whole family" Mother from "female cancer" Sister from "female cancer" Another sister from kidney cancer Brother from prostate cancer Another brother from [place] Social History Patient is homeless Smokes 5 cigarettes day since the age of 32. Drinks about half a pint of vodka daily. (Vicky Rodriguez) Review of Systems Constitutional: COMPLAINS OF: Fatigue, DENIES: Weight loss Respiratory: DENIES: Cough Cardiovascular: DENIES: Chest pain Gastrointestinal: COMPLAINS OF: Abdominal pain, Black stools, Nausea, Vomiting , Heartburn, Hematemesis, DENIES: Bloody stools, Constipation, Diarrhea Integumentary: DENIES: Abnormal pigmentation Hematologic/lymphatic: DENIES: Bruising Neurologic: DENIES: Headache Psychiatric: DENIES: Confusion (Vicky Rodriguez) GI Exam Vitals I&O Vital Signs Date Time Temp Pulse Resp B/P (MAP) Pulse Ox O2 Delivery O2 Flow Rate FiO2 12/12/16 04:00 97.6 66 16 167/79 (108) 94 12/11/16 23:25 98.2 93 16 183/82 (115) 92 12/11/16 22:05 98.6 94 16 166/63 (97) 94 12/11/16 22:00 98 12/11/16 21:10 Room Air 12/11/16 20:00 87 18 115/55 (75) 96 Room Air 12/11/16 17:57 92 18 174/77 (109) 95 Room Air 12/11/16 17:52 18 12/11/16 14:10 18 12/11/16 13:42 98.6 114 20 167/77 (107) 97 Room Air I/O 12/11/16 12/11/16 12/11/16 12/12/16 12/12/16 12/12/16 07:00 15:00 23:00 07:00 15:00 23:00 Intake Total 1653 ml 600.5 ml Output Total 300 ml 200 ml Balance 1353 ml 400.5 ml Intake Oral 0 ml IV Total 1653 ml 600.5 ml Output Urine Total 200 ml Emesis 300 ml # Bowel Movements 0 Imaging Last Impressions Chest X-Ray 12/11/16 0000 Signed Impressions: Service Date/Time: Sunday, December 11, 2016 14:23 - CONCLUSION: The lungs are clear. Gonzalo Snowden MD Abdomen/Pelvis CT 12/11/16 0000 Signed Impressions: Service Date/Time: Sunday, December 11, 2016 17:30 - CONCLUSION: When compared to prior CT in May 2016, very similar appearance to the region of the head of the pancreas with loss of delineation of the fat planes, probable induration, and free fluid and wall thickening about the duodenum. Moderate size hiatus hernia is also stable. Gonzalo Snowden MD Laboratory Test 12/11/16 14:25 12/11/16 22:50 12/12/16 03:22 White Blood Count 9.1 TH/MM3 5.7 TH/MM3 Red Blood Count 3.27 MIL/MM3 2.50 MIL/MM3 Hemoglobin 10.8 GM/DL 10.3 GM/DL 8.5 GM/DL Hematocrit 32.3 % 25.0 % Mean Corpuscular Volume 98.7 FL 99.7 FL Mean Corpuscular Hemoglobin 33.0 PG 33.8 PG Mean Corpuscular Hemoglobin Concent 33.4 % 33.9 % Red Cell Distribution Width 16.9 % 16.6 % Platelet Count 142 TH/MM3 71 TH/MM3 Mean Platelet Volume 9.0 FL 9.4 FL Neutrophils (%) (Auto) 77.5 % Lymphocytes (%) (Auto) 14.3 % Monocytes (%) (Auto) 7.2 % Eosinophils (%) (Auto) 0.2 % Basophils (%) (Auto) 0.8 % Neutrophils # (Auto) 7.0 TH/MM3 Lymphocytes # (Auto) 1.3 TH/MM3 Monocytes # (Auto) 0.7 TH/MM3 Eosinophils # (Auto) 0.0 TH/MM3 Basophils # (Auto) 0.1 TH/MM3 CBC Comment DIFF FINAL Differential Comment Blood Urea Nitrogen 33 MG/DL 28 MG/DL Creatinine 1.94 MG/DL 1.37 MG/DL Random Glucose 93 MG/DL 95 MG/DL Calcium Level 8.3 MG/DL 7.5 MG/DL Sodium Level 137 MEQ/L 140 MEQ/L Potassium Level 3.8 MEQ/L 4.3 MEQ/L Chloride Level 105 MEQ/L 111 MEQ/L Carbon Dioxide Level 17.1 MEQ/L 20.9 MEQ/L Anion Gap 15 MEQ/L 8 MEQ/L Estimat Glomerular Filtration Rate 25 ML/MIN 37 ML/MIN Troponin I 0.02 NG/ML Lipase 244 U/L Ethyl Alcohol Level 159 MG/DL Physical Examination HEENT: Normocephalic; atraumatic; no jaundice. NECK: Neck is supple, no JVD, no lymphadenopathy. CHEST: CTA CARDIAC: RRR ABDOMEN: Soft, nondistended, nontender; no hepatosplenomegaly; bowel sounds are present in all four quadrants. EXTREMITIES: No clubbing, cyanosis, or edema. SKIN: Multiple ecchymosis, petechiae lower extremities SUMMER CLERK: No focal deficits; alert and oriented times three. (Vicky Rodriguez) Assessment and Plan Plan ASSESSMENT: - Upper GIB with coffee ground emesis, melena. Hx ETOH abuse, liver cirrhosis, esophagitis, gastritis and prior gib. Continues to drink ETOH. Last EGD (05/17/16)---> esophagitis, gastritis. Pathology reactive/chemical gastropathy in the background of mild chronic gastritis, negative for helicobacter pylori. Protonix, Octreotide Gtt, NPO. Type and screened. HH 10.8/32.3---> 8.5/25.0. - Anemia, acute blood loss. HH 10.8/32.3---> 8.5/25.0. Type and screened. Protonix Gtt. - Thrombocytopenia. Plt 71,000. - ? Chronic pancreatitis, secondary to ETOH abuse. Abdomen CT pelvis (12/11/16)-- --> When compared to prior CT in May 2016, very similar appearance to the region of the head of the pancreas with loss of delineation of the fat planes, probable induration, and free fluid and wall thickening about the duodenum. Moderate size hiatus hernia is also stable. PPI. Lipase 244. - SHITAL. Creat 1.37. - ETOH abuse, DT precautions per attending. - HTN, Hypothyroidism, CAD, Depression per attending PLAN: - Plan for egd with possible band ligation today - Obtain consents - NPO - Protonix Gtt - Octreotide Gtt - Monitor CBC - Transfuse as necessary - Supportive care - Further recommendations to follow based on results of above - Pt seen and examined by Dr. Durham and myself and this note is written on his behalf (Vicky Rodriguez) Plan Patient was seen and examined, agree with above Notes, we'll plan on endoscopy today with possible banding, we will continue PPI and octreotide until after the procedure for further instruction (Leandra Durham MD) Vicky Rodriguez Dec 12, 2016 08:22 Leandra Durham MD Dec 12, 2016 10:57
[2016-12-12] MEDS: amLODIPine BESYLATE 5 MG TAB PO SCH (09:00)
[2016-12-12] MEDS: POTASSIUM CHLORIDE 20 MEQ CONTROLLED RELEASE TAB PO SCH ×2 (09:00→17:55)
[2016-12-12] MEDS: CITALOPRAM HYDROBROMIDE 20 MG TAB PO SCH (09:00)
[2016-12-12] MEDS: LACTULOSE SYRUP 20 GM/30 ML CUP PO SCH (09:00)
[2016-12-12] MEDS: SODIUM CHLORIDE 0.9% FLUSH 10 ML FLUSH IV FLUSH SCH ×2 (09:00→20:58)
[2016-12-12] MEDS: DOCUSATE SODIUM 50 MG/SENNA 8.6 MG TAB PO SCH ×2 (09:00→20:59)
[2016-12-12] MEDS: FOLIC ACID 1 MG TAB PO SCH (09:00)
[2016-12-12] MEDS: THIAMINE HCL 100 MG TAB PO SCH (09:00)
[2016-12-12] MEDS: MULTIVITAMINS/MINERALS THERAPEUTIC TAB PO SCH (09:00)
[2016-12-12] MEDS: ISOSORBIDE MONONITRATE 60 MG TAB PO SCH (09:15)
[2016-12-12] MEDS: CARVEDILOL 3.125 MG TAB PO SCH ×2 (09:16→20:59)
[2016-12-12] MEDS ORDERED: PNEUMOCOCCAL POLYVALENT INJ 25 MCG/0.5 ML SYR IM ONE (10:00)
[2016-12-12] MEDS ORDERED: PROPOFOL 200 MG/20 ML AMP IV PUSH ONE (10:31)
--- NOTE | 2016-12-12 11:02 | GIPROC ---
[facility] [address] [facility]. [facility], [address] EGD PROCEDURE REPORT EXAM DATE: 12/12/2016 PATIENT NAME: Ellen Carrillo MR #: [id number] BIRTHDATE: 1940 ATTENDING: Leandra Durham MD ORDER #: [id number] COMMERCIAL REPRESENTATIVE: Brianna Carl and Walker Weinstein STATUS: inpatient INDICATIONS: The patient is a 76 yr old female here for an EGD due to Hematemesis Anemia History of cirrhosis PROCEDURE PERFORMED: EGD w/ biopsy MEDICATIONS: None and Per Anesthesia. TOPICAL ANESTHETIC: none CONSENT: The patient understands the risks and benefits of the procedure and understands that these risks include, but are not limited to: sedation, allergic reaction, infection, perforation and/or bleeding. Alternative means of evaluation and treatment include, among others: physical exam, x-rays, and/or surgical intervention. The patient elects to proceed with this endoscopic procedure. medical equipment was checked for proper function. Hand hygiene and appropriate measures for infection prevention was taken. After the risks, benefits and alternatives of the procedure were thoroughly explained, Informed consent was verified, confirmed and timeout was successfully executed by the treatment team. The patient was anesthetized with topical anesthesia and the Pentax EG-[id number] endoscope was introduced through the mouth and advanced to the second portion of the duodenum. Retroflexed views revealed no abnormalities The gastroscope was then slowly withdrawn and removed. Distal esophageal esophagitis, superficial biopsy was done because of low platelet, no varices were seen. Stomach gastritis biopsy was not done because of low plat Gastropathy. Duodenal ulcers no active bleeding was severe duodenitis. ADVERSE EVENTS: There were no complications. IMPRESSIONS: 1. Distal esophageal esophagitis, superficial biopsy was done because of low platelet, no varices were seen 2. Stomach gastritis biopsy was not done because of low plat Gastropathy 3. Duodenal ulcers no active bleeding was severe duodenitis 4. Retroflexed views revealed no abnormalities 5. No active bleeding RECOMMENDATIONS: 1. Await biopsy results. Biopsy results will not be ready for 7-10 days. If you don't hear from us in two weeks, call our office for biopsy results. 2. Anti-reflux regimen 3. Avoid NSAIDS 4. DC octreotide DC alcohol May start feeding as tolerated 5. Continue PPI PATIENT CONDITION: stable DISPOSITION: Inpatient REPEAT EXAM: Return as needed for EGD Leandra Durham MD eSigned: Leandra Durham MD 12/12/2016 11:02 AM cc: PATIENT NAME: Ellen Carrillo MR#: [id number]
[2016-12-12] MEDS ORDERED: DO NOT ADM ANY ANTICOAGULANT DRUGS PRN (11:15)
--- NOTE | 2016-12-12 12:55 | EKG ---
Date Performed: 12/11/2016 Time Performed: 15:23:26 PTAGE: 76 years EKG: SINUS TACHYCARDIA SEPTAL MYOCARDIAL INFARCTION ABNORMAL ECG PREVIOUS TRACING : 12/10/2016 19.17 DOCTOR: Jorge Friedman Interpretating Date/Time 12/12/2016 12:49:10
--- NOTE | 2016-12-12 14:35 | HHI.PR ---
Subjective Remarks f/u for hematemesis patient seen after EGD. she stated she is feeling better. Denied any emesis today. denied any abdominal pain. she is asking to go to rehab and feels like she cannot go to hotel now. otherwise no complaints. Objective Vitals Vital Signs Date Time Temp Pulse Resp B/P (MAP) Pulse Ox O2 Delivery O2 Flow Rate FiO2 12/12/16 11:15 60 16 147/65 (92) 98 Nasal Cannula 2 12/12/16 11:00 69 18 108/55 (72) 98 Nasal Cannula 2 12/12/16 10:47 98.8 74 15 105/53 (70) 97 Nasal Cannula 3 12/12/16 09:00 94 Room Air 12/12/16 08:05 98.3 69 16 163/74 (103) 95 12/12/16 04:00 97.6 66 16 167/79 (108) 94 12/11/16 23:25 98.2 93 16 183/82 (115) 92 12/11/16 22:05 98.6 94 16 166/63 (97) 94 12/11/16 22:00 98 12/11/16 21:10 Room Air 12/11/16 20:00 87 18 115/55 (75) 96 Room Air 12/11/16 17:57 92 18 174/77 (109) 95 Room Air 12/11/16 17:52 18 I/O 12/11/16 12/11/16 12/11/16 12/12/16 12/12/16 12/12/16 06:59 14:59 22:59 06:59 14:59 22:59 Intake Total 1653 ml 600.5 ml 50 ml Output Total 300 ml 200 ml Balance 1353 ml 400.5 ml 50 ml Intake Oral 0 ml IV Total 1653 ml 600.5 ml Other 50 ml Output Urine Total 200 ml Emesis 300 ml # Bowel Movements 0 Result Diagram: 12/12/162 12/12/16321 Objective Remarks GENERAL: in NAD CARDIOVASCULAR: Regular rate and rhythm without murmurs, gallops, or rubs. RESPIRATORY: Breath sounds equal bilaterally. No accessory muscle use. GASTROINTESTINAL: Abdomen soft, non-tender, nondistended. Medications and IVs Current Medications Ondansetron HCl (Zofran Inj) 4 mg ONCE ONCE IVP Last administered on 12/11/16 15:12; Start 12/11/16 at 14:15; Stop 12/11/16 at 14:18; Status DC Pantoprazole Sodium (Protonix Inj) 40 mg ONCE ONCE IVP Last administered on 15:12; Start 12/11/16 at 14:15; Stop 12/11/16 at 14:18; Status DC Thiamine HCl 100 mg/Sodium Chloride 101 ml @ 101 mls/hr ONCE ONCE IV Last administered on 12/11/16 15:12; Start 12/11/16 at 14:15; Stop 12/11/16 at 15:14; Status DC Sodium Chloride 500 ml @ 500 mls/hr BOLUS ONCE IV Last administered on 15:45; Start 12/11/16 at 15:45; Stop 12/11/16 at 16:44; Status DC Metoclopramide HCl 10 mg/Sodium Chloride 52 ml @ 104 mls/hr ONCE ONCE IV Last administered on 12/11/16 16:49; Start 12/11/16 at 16:45; Stop 12/11/16 at 17: 14; Status DC Sodium Chloride 1,000 ml @ 999 mls/hr BOLUS ONCE IV Last administered on 16:48; Start 12/11/16 at 16:45; Stop 12/11/16 at 17:45; Status DC Morphine Sulfate (Morphine Inj) 2 mg ONCE ONCE IV PUSH Last administered on 16:49; Start 12/11/16 at 16:45; Stop 12/11/16 at 16:46; Status DC Octreotide Acetate 500 mcg/ Sodium Chloride 500.5 ml @ 50 mls/hr Q10H1M IV Last administered on 12/12/16 05:07; Start 12/11/16 at 16:38 Pantoprazole Sodium 80 mg/ Sodium Chloride 100 ml @ 10 mls/hr Q10H IV Last administered on 12/12/16 05:06; Start 12/11/16 at 16:38 Sodium Chloride 1,000 ml @ 70 mls/hr [id number] IV Last administered on 12/11/16 22:58; Start 12/11/16 at 16:44 Sodium Chloride (NS Flush) 2 ml UNSCH PRN IV FLUSH FLUSH AFTER USING IV ACCESS ; Start 12/11/16 at 16:45 Sodium Chloride (NS Flush) 2 ml BID IV FLUSH ; Start 12/11/16 at 21:00 Acetaminophen (Tylenol) 650 mg Q4H PRN PO TEMP > 100.4; Start 12/11/16 at 16:45 Ondansetron HCl (Zofran Inj) 4 mg Q6H PRN IVP NAUSEA OR VOMITING; Start at 16:45 Naloxone HCl (Narcan Inj) 0.4 mg UNSCH PRN IV SEE LABEL COMMENTS; Start at 16:45 Senna/Docusate Sodium (Joleen-Colace) 1 tab BID PO ; Start 12/11/16 at 21:00 Magnesium Hydroxide (Milk Of Magnesia Liq) 30 ml Q12H PRN PO MILD - MODERATE CONSTIPATION; Start 12/11/16 at 16:45 Sennosides (Senokot) 17.2 mg Q12H PRN PO MODERATE - SEVERE CONSTIPATION; Start 12/11/16 at 16:45 Bisacodyl (Dulcolax Supp) 10 mg DAILY PRN RECTAL SEVERE CONSITIPATION; Start at 16:45 Lactulose (Lactulose Liq) 30 ml DAILY PRN PO SEVERE CONSITIPATION; Start at 16:45 Flumazenil (Romazicon Inj) 0.2 mg Q1M PRN IV PUSH SEE LABEL COMMENTS; Start 12/11/16 at 17:00 Lorazepam (Ativan) 1 mg Q4H PRN PO CIWA 8 - 10 Last administered on 12/11/16t 22 :59; Start 12/11/16 at 17:00 Lorazepam (Ativan Inj) 1 mg Q4H PRN IV PUSH CIWA 8 - 10; Start 12/11/16 at 17:00 Lorazepam (Ativan) 2 mg Q2H PRN PO CIWA 11-14; Start 12/11/16 at 17:00 Lorazepam (Ativan Inj) 2 mg Q2H PRN IV PUSH CIWA 11-14; Start 12/11/16 at 17:00 Lorazepam (Ativan Inj) 2 mg Q1H PRN IV PUSH CIWA 15-20; Start 12/11/16 at 17:00 Lorazepam (Ativan Inj) 2 mg Q15M PRN IV PUSH CIWA > 20; Start 12/11/16 at 17:00 Amlodipine Besylate (Norvasc) 2.5 mg DAILY PO ; Start 12/12/16 at 09:00 Carvedilol (Coreg) 3.125 mg BID PO Last administered on 12/12/16 09:16; Start 12/11/16 at 21:00 Citalopram Hydrobromide (CeleXA) 10 mg DAILY PO ; Start 12/12/16 at 09:00 Clonidine (Catapres) 0.2 mg Q6H PRN PO SBP>160, DBP>90; Start 12/11/16 at 17:15 Folic Acid (Folate) 1 mg DAILY PO ; Start 12/12/16 at 09:00 Isosorbide Mononitrate (Imdur) 60 mg DAILY PO Last administered on 12/12/16 09: 15; Start 12/12/16 at 09:00 Lactulose (Lactulose Liq) 30 ml DAILY PO ; Start 12/12/16 at 09:00 Levothyroxine Sodium (Synthroid) 75 mcg DAILY@0600 PO Last administered on 06:08; Start 12/12/16 at 06:00 Lisinopril (Prinivil) 10 mg BID PO ; Start 12/11/16 at 21:00; Stop 12/11/16 at 21: 00; Status DC Multivitamins/ Minerals Therapeutic (Theragran M Tab) 1 tab DAILY PO ; Start 12/12/16 at 09:00 Potassium Chloride (KCl) 20 meq DAILY PO ; Start 12/12/16 at 09:00 Thiamine HCl (Vitamin B1) 100 mg DAILY PO ; Start 12/12/16 at 09:00 Morphine Sulfate (Morphine Inj) 2 mg Q3H PRN IV PUSH pain 4-10 Last administered on 12/12/16 06:09; Start 12/11/16 at 17:45 Pneumococcal Polyvalent Vaccine (Pneumovax-23 Inj) 25 mcg ONCE ONCE IM ; Start 12/12/16 at 10:00; Stop 12/12/16 at 10:01; Status DC Propofol (Diprivan 200 Mg/20 ml Inj) 150 mg STK-MED ONCE IV PUSH ; Start at 10:31; Stop 12/12/16 at 10:42; Status DC Miscellaneous Information [facility] SEE LABEL COMMENTS; Start 12/12/16 at 11:15; Stop 12/13/16 at 11:14 A/P Assessment and Plan 76-year-old alcoholic and cirrhosis of liver who presented with abdominal pain and hematemesis after drinking vodka Hematemesis/abdominal pain -s/p distal esophageal esophagitis, superficial biopsy was done because of low platelet, no varices were seen stomach gastritis biopsy was not done because of low plat gastropathy, duodenal ulcers no active bleeding was severe duodenitis, no active bleeding. -per GI await biopsy results. Biopsy results will not be ready for 7-10 days. If you don't hear from us in two weeks, call our office for biopsy results. - Anti-reflux regimen, Avoid NSAIDS, and DC octreotide -Labs reviewed. Positive Gastroccult. Hemoglobin 10.8. Yesterday was 12.5. Patient's baseline has been around 9 during recent admission. Continue to monitor with serial H&H. -Pending CT scan the abdomen and pelvis ordered in emergency department. -Protonix drips were started in the emergency department will continue Protonix drip. -Consult GI for possible endoscopy. -Continue with supportive care with IV fluids and antibiotics. We'll be cautious with IV fluids secondary to history cardiomyopathy. Acute renal failure -Baseline in November 2016 was 0.83. Creatinine is now 1.94. Most likely secondary to dehydration. -improved with IVFs. continues to hold lasix and lisinopril. -Strict ins and outs. Continue to monitor creatinine. Chronic alcoholism -Education given. despite dire consequences patient continues to drink. Tobacco abuse -Education given. Patient refused any supplement. Cirrhosis of liver -Continue with home lactulose. takotsubo cardiomyopathy/pancytopenia/GERD/coronary artery disease/hypertension /depression -Continue a home medication except for lisinopril and Lasix. Aspirin was held during last admission due to thrombocytopenia. anemia/thrombocytopenia -reviewing medical records this is patient's baseline. -continues to trend and monitor for any signs of bleeding. -due to bone marrow suppression due to alcoholism. DVT prophylaxis -SCDs. Linda Calixto MD Dec 12, 2016 14:35
[2016-12-12 14:37] LABS: INTERNATIONAL NORMALIZED RATIO 1.1 RATIO; PROTHROMBIN TIME - PATIENT 12.2 SEC (9.8-11.6)
[2016-12-12] MEDS: PANTOPRAZOLE SODIUM 40 MG VIAL IV PUSH SCH (16:00)
[2016-12-12 16:07] VITALS: BP 146/65; PULSE 69; RESP 16; TEMP 98.6; O2SAT 94
[2016-12-12 17:48] VITALS: O2SAT 98
[2016-12-12] MEDS: ONDANSETRON HCL 4 MG/2 ML VIAL IVP PRN (17:51)
[2016-12-12 20:00] VITALS: BP 164/75; PULSE 59; PULSE 62; RESP 17; TEMP 98.7; O2SAT 93
[2016-12-12] MEDS: SODIUM CHLOR 0.9% 1000 ML INJ 1,000 ML IV SCH (20:58)
[2016-12-12] MEDS: LORazepam 1 MG TAB PO PRN (23:24)
[2016-12-13] VITALS: BP 125/60; PULSE 58; RESP 20; TEMP 98.2; O2SAT 94
[2016-12-13] MEDS: PANTOPRAZOLE SODIUM 40 MG VIAL IV PUSH SCH (03:13)
[2016-12-13 04:00] VITALS: BP 158/72; PULSE 61; RESP 19; TEMP 98.2; O2SAT 94
[2016-12-13] MEDS: MORPHINE SULFATE 4 MG/ML INJ IV PUSH PRN (04:09)
[2016-12-13] MEDS: ONDANSETRON HCL 4 MG/2 ML VIAL IVP PRN (04:09)
[2016-12-13] MEDS: LEVOTHYROXINE SODIUM 75 MCG TAB PO SCH (05:17)
[2016-12-13 08:00] VITALS: BP 122/64; PULSE 70; RESP 16; TEMP 98.1; O2SAT 96
[2016-12-13] MEDS: POTASSIUM CHLORIDE 20 MEQ CONTROLLED RELEASE TAB PO SCH (08:23)
[2016-12-13] MEDS: CITALOPRAM HYDROBROMIDE 20 MG TAB PO SCH (08:23)
[2016-12-13] MEDS: LACTULOSE SYRUP 20 GM/30 ML CUP PO SCH (08:23)
[2016-12-13] MEDS: amLODIPine BESYLATE 5 MG TAB PO SCH (08:23)
[2016-12-13] MEDS: CARVEDILOL 3.125 MG TAB PO SCH (08:23)
[2016-12-13] MEDS: MULTIVITAMINS/MINERALS THERAPEUTIC TAB PO SCH (08:24)
[2016-12-13] MEDS: THIAMINE HCL 100 MG TAB PO SCH (08:24)
[2016-12-13] MEDS: FOLIC ACID 1 MG TAB PO SCH (08:24)
[2016-12-13] MEDS: DOCUSATE SODIUM 50 MG/SENNA 8.6 MG TAB PO SCH (08:24)
[2016-12-13] MEDS: ISOSORBIDE MONONITRATE 60 MG TAB PO SCH (08:24)
[2016-12-13] MEDS: SODIUM CHLORIDE 0.9% FLUSH 10 ML FLUSH IV FLUSH SCH (08:27)
[2016-12-13 09:26] LABS: AUTOMATED NEUTROPHIL # 1.6 TH/MM3 (1.8-7.7); BASOPHIL % 0.7 % (0.0-2.0); EOSINOPHIL # 0.1 TH/MM3 (0-0.4); EOSINOPHIL % 3.7 % (0.0-4.0); HEMATOCRIT 26.3 % (35.0-46.0); LYMPH % 30.8 % (9.0-44.0); LYMPHOCYTE # 0.8 TH/MM3 (1.0-4.8); MEAN CELL VOLUME 100.2 FL (80.0-100.0); MEAN CORPUSCULAR HEMOGLOBIN 32.6 PG (27.0-34.0); MEAN CORPUSCULAR HGB CONC 32.6 % (32.0-36.0); MONO % 5.3 % (0.0-8.0); NEUT % 59.5 % (16.0-70.0); PLATELET COUNT 65 TH/MM3 (150-450); RED BLOOD COUNT 2.63 MIL/MM3 (4.00-5.30); RED CELL DISTRIBUTION WIDTH 16.8 % (11.6-17.2); WHITE BLOOD COUNT 2.6 TH/MM3 (4.0-11.0)
[2016-12-13 09:34] LABS: HEMO FLAGS AUTO DIFF
[2016-12-13 09:46] LABS: ALKALINE PHOSPHATASE 81 U/L (45-117); ALT (GPT) 26 U/L (10-53); ANION GAP 7 MEQ/L (5-15); AST (GOT) 48 U/L (15-37); BICARBONATE 20.7 MEQ/L (21.0-32.0); BLOOD UREA NITROGEN 21 MG/DL (7-18); CHLORIDE 111 MEQ/L (98-107); GLOMERULAR FILTRATION RATE 48 ML/MIN (>89); POTASSIUM 4.3 MEQ/L (3.5-5.1); SODIUM (NA) 139 MEQ/L (136-145)
[2016-12-13 09:52] VITALS: O2SAT 92
[2016-12-13 10:54] LABS: OVALOCYTES 1+ (NORMAL); PLATELET ESTIMATE SMEAR LOW (NORMAL); PLATELET MORPHOLOGY NORMAL (NORMAL); SCAN/DIFF AUTO DIFF CONFIRMED
[2016-12-13] MEDS: SODIUM CHLOR 0.9% 1000 ML INJ 1,000 ML IV SCH (11:14)
[2016-12-13 12:00] VITALS: BP 124/66; PULSE 70; RESP 16; TEMP 98; O2SAT 97
[2016-12-13] MEDS ORDERED: LISI-519 PO (13:10)
[2016-12-13] MEDS ORDERED: PROT40TA PO (13:10)
[2016-12-13] MEDS ORDERED: OXYC-392 PO (13:11)
--- NOTE | 2016-12-13 13:16 | HHI.DS ---
Discharge Summary Admission Date Dec 11, 2016 at 16:47 Discharge Date: Dec 13, 2016 Admitting Diagnosis GI bleed (1) GI bleed ICD Code: K92.2 - Gastrointestinal hemorrhage, unspecified Diagnosis: Principal Status: Acute (2) Pancytopenia ICD Code: D61.818 - Other pancytopenia Diagnosis: Secondary Status: Acute (3) Acute renal failure ICD Code: N17.9 - Acute kidney failure, unspecified Diagnosis: Principal (4) Chronic alcohol abuse ICD Code: F10.10 - Alcohol abuse, uncomplicated Diagnosis: Secondary Status: Chronic Procedures see hospital course Brief History - From Admission This is a 76-year-old female with history of alcoholism, cirrhosis of the liver , GERD, history of coronary artery disease s/p multiple stent placement and recent admission due to takotsubo cardiomyopathy who presented with abdominal pain and hematemesis after drinking vodka. Patient was seen earlier in the emergency department due to a fall from drinking alcohol and was discharged early this morning. Patient stated that after she was discharged in emergency department she went to drink a half a pint of vodka then right after she started having abdominal pain, intractable emesis described as dark blood so she returned to the hospital. Per Dr. Osorio she checked Gastroccult and it was positive. Patient stated that abdominal pain located in the epigastric and right upper quadrant area and she continues to have it. Patient patient had episode of emesis in the ED but none noted during the interview. All other review of system reviewed and negative. CBC/BMP: 12/13/16 0837 12/13/16 0837 Significant Findings Laboratory Tests Test 12/11/16 14:25 12/11/16 22:50 12/12/16 03:22 12/12/16 13:10 Red Blood Count 3.27 MIL/MM3 (4.00-5.30) 2.50 MIL/MM3 (4.00-5.30) Hemoglobin 10.8 GM/DL (11.6-15.3) 10.3 GM/DL (11.6-15.3) 8.5 GM/DL (11.6-15.3) 8.9 GM/DL (11.6-15.3) Hematocrit 32.3 % (35.0-46.0) 25.0 % (35.0-46.0) Platelet Count 142 TH/MM3 (150-450) 71 TH/MM3 (150-450) Neutrophils (%) (Auto) 77.5 % (16.0-70.0) Blood Urea Nitrogen 33 MG/DL (7-18) 28 MG/DL (7-18) Creatinine 1.94 MG/DL (0.50-1.00) 1.37 MG/DL (0.50-1.00) Calcium Level 8.3 MG/DL (8.5-10.1) 7.5 MG/DL (8.5-10.1) Carbon Dioxide Level 17.1 MEQ/L (21.0-32.0) 20.9 MEQ/L (21.0-32.0) Estimat Glomerular Filtration Rate 25 ML/MIN (>89) 37 ML/MIN (>89) Ethyl Alcohol Level 159 MG/DL (0-5) Chloride Level 111 MEQ/L (98-107) Prothrombin Time 12.2 SEC (9.8-11.6) Test 12/13/16 08:37 White Blood Count 2.6 TH/MM3 (4.0-11.0) Red Blood Count 2.63 MIL/MM3 (4.00-5.30) Hemoglobin 8.6 GM/DL (11.6-15.3) Hematocrit 26.3 % (35.0-46.0) Mean Corpuscular Volume 100.2 FL (80.0-100.0) Platelet Count 65 TH/MM3 (150-450) Neutrophils # (Auto) 1.6 TH/MM3 (1.8-7.7) Lymphocytes # (Auto) 0.8 TH/MM3 (1.0-4.8) Platelet Estimate LOW (NORMAL) Ovalocytes 1+ (NORMAL) Blood Urea Nitrogen 21 MG/DL (7-18) Creatinine 1.10 MG/DL (0.50-1.00) Random Glucose 120 MG/DL (74-106) Total Protein 6.3 GM/DL (6.4-8.2) Albumin 2.7 GM/DL (3.4-5.0) Calcium Level 8.0 MG/DL (8.5-10.1) Aspartate Amino Transf (AST/SGOT) 48 U/L (15-37) Chloride Level 111 MEQ/L (98-107) Carbon Dioxide Level 20.7 MEQ/L (21.0-32.0) Estimat Glomerular Filtration Rate 48 ML/MIN (>89) Imaging Last Impressions Chest X-Ray 12/11/16 0000 Signed Impressions: Service Date/Time: Sunday, December 11, 2016 14:23 - CONCLUSION: The lungs are clear. Gonzalo Snowden MD Abdomen/Pelvis CT 12/11/16 0000 Signed Impressions: Service Date/Time: Sunday, December 11, 2016 17:30 - CONCLUSION: When compared to prior CT in May 2016, very similar appearance to the region of the head of the pancreas with loss of delineation of the fat planes, probable induration, and free fluid and wall thickening about the duodenum. Moderate size hiatus hernia is also stable. Gonzalo Snowden MD PE at Discharge GENERAL: in NAD CARDIOVASCULAR: Regular rate and rhythm without murmurs, gallops, or rubs. RESPIRATORY: Breath sounds equal bilaterally. No accessory muscle use. GASTROINTESTINAL: Abdomen soft, non-tender, nondistended. Pt update on day of discharge Patient denies any GI bleed. She stated that she is doing well and very anxious to go to a rehabilitation center. No acute events overnight. She is tolerating her diet. Pain has improved. Hospital Course 76-year-old alcoholic and cirrhosis of liver who presented with abdominal pain and hematemesis after drinking vodka Hematemesis/abdominal pain -Patient was given supportive care and GI was consulted. She was empirically put on a tree at high and Protonix. She had EGD done which showed s/p distal esophageal esophagitis, superficial biopsy was done because of low platelet, no varices were seen stomach gastritis biopsy was not done because of low plat gastropathy, duodenal ulcers no active bleeding was severe duodenitis,no active bleeding. -per GI await biopsy results. Biopsy results will not be ready for 7-10 days. If you don't hear from us in two weeks, call our office for biopsy results. -During hospitalization she did not have any signs of GI bleed and hemoglobin stable. Acute renal failure -Baseline in November 2016 was 0.83. Creatinine is now 1.94. Most likely secondary to dehydration. -improved with IVFs. Lasix and lisinopril was held secondary to acute renal failure. -Strict ins and outs. Continue to monitor creatinine. Chronic alcoholism -Education given. despite dire consequences patient continues to drink. Tobacco abuse -Education given. Patient refused any supplement. Cirrhosis of liver -Continue with home lactulose. takotsubo cardiomyopathy/pancytopenia/GERD/coronary artery disease/hypertension /depression -Continue a home medication except for lisinopril and Lasix. Aspirin was held during last admission due to thrombocytopenia. Patient to follow-up her primary care physician or significant provider in regards to restarting lisinopril and Lasix. anemia/thrombocytopenia -reviewing medical records this is patient's baseline. -continues to trend and monitor for any signs of bleeding. -due to bone marrow suppression due to alcoholism. Pt Condition on Discharge: Stable Discharge Disposition: Discharge to SNF Discharge Time: <= 30 minutes Discharge Instructions DIET: Follow Instructions for: Heart Healthy Diet Activities you can perform: Regular-No Restrictions Follow up Referrals: Gastroenterology - 2 Weeks with Leandra Durham MD [facility]/ - Daily New Medications: Lisinopril (Lisinopril) 5 Mg Tab 5 MG PO DAILY for heart failure, #30 TAB 0 Refills Oxycodone (Oxycodone) 5 Mg Tab 5 MG PO Q4H PRN for PAIN, #15 TAB 0 Refills Pantoprazole (Protonix) 40 Mg Tab 40 MG PO BID for Ulcer Prevention, #60 TAB 0 Refills Continued Medications: Amlodipine (Norvasc) 5 Mg Tab 2.5 MG PO DAILY, #30 TAB . Carvedilol (Coreg) 3.125 Mg Tab 3.125 MG PO BID, #60 TAB 0 Refills Citalopram (Citalopram) 10 Mg Tab 10 MG PO DAILY for Control Depression, #30 TAB 0 Refills Clonidine (Catapres) 0.2 Mg Tab 0.2 MG PO Q6H PRN for SBP>160, DBP>90, #120 TAB . Folic Acid (Folic Acid) 1 Mg Tablet 1 MG PO DAILY, #30 CAP . Isosorbide Mononitrate ER (Isosorbide Mononitrate ER) 60 Mg Tab 60 MG PO DAILY for Prevent Chest Pain, #30 TAB 0 Refills Lactulose Liq (Lactulose Liq) 10 Gm/15 Ml Soln 30 ML PO DAILY for Alcohol Detox, #10 ML Levothyroxine (Levothyroxine) 75 Mcg Tab 75 MCG PO DAILY for Thyroid, #30 TAB 0 Refills Multiple Vitamins W/ Minerals (Thera M Plus) 1 Tab 1 TAB PO DAILY, #30 TAB . Potassium Chloride ER (Potassium Chloride ER) 20 Meq Tab 20 MEQ PO DAILY for Electrolyte Replacement, #30 TAB 0 Refills Thiamine HCl (Gnp Vitamin B-1) 100 Mg Tab 100 MG PO DAILY, #30 TAB . Discontinued Medications: Furosemide (Lasix) 40 Mg Tab 40 MG PO DAILY, #30 TAB 0 Refills Lisinopril (Lisinopril) 10 Mg Tab 10 MG PO BID, #30 TAB 0 Refills Omeprazole (Omeprazole) 20 Mg Tab 20 MG PO DAILY, #30 TAB 0 Refills Pantoprazole (Pantoprazole) 40 Mg Tab 40 MG PO DAILY, #30 TAB . Linda Calixto MD Dec 13, 2016 13:16
== END 2016-12-13 15:40 | DRG 378 ==
LOC: NEPE 13:40 → NEDA 16:47 → N04A 21:18
PROVIDERS: ADMIT Family Medicine; ATTEND Family Medicine
PROC: 0DB68ZX Excision of Stomach, Via Natural or Artificial Opening Endoscopic, Diagnostic (ICD-10-PCS; 2016-12-12)
PROC: 0DB38ZX Excision of Lower Esophagus, Via Natural or Artificial Opening Endoscopic, Diagnostic (ICD-10-PCS; principal; 2016-12-12 10:10)
DX: K92.0 Hematemesis (principal); N17.9 Acute kidney failure, unspecified; D61.818 Other pancytopenia; K70.30 Alcoholic cirrhosis of liver without ascites; I10 Essential (primary) hypertension; S06.0X0A Concussion without loss of consciousness, initial encounter; S50.12XA Contusion of left forearm, initial encounter; D62 Acute posthemorrhagic anemia; E86.0 Dehydration; F32.9 Major depressive disorder, single episode, unspecified; F41.9 Anxiety disorder, unspecified; E03.9 Hypothyroidism, unspecified; F17.210 Nicotine dependence, cigarettes, uncomplicated; K44.9 Diaphragmatic hernia without obstruction or gangrene; K21.0 Gastro-esophageal reflux disease with esophagitis; K29.80 Duodenitis without bleeding; K29.70 Gastritis, unspecified, without bleeding; K26.9 Duodenal ulcer, unspecified as acute or chronic, without hemorrhage or perforation; I25.10 Atherosclerotic heart disease of native coronary artery without angina pectoris; Z95.5 Presence of coronary angioplasty implant and graft; I25.2 Old myocardial infarction; Z59.0 Homelessness; S00.01XA Abrasion of scalp, initial encounter; R23.3 Spontaneous ecchymoses; F10.129 Alcohol abuse with intoxication, unspecified; Y90.8 Blood alcohol level of 240 mg/100 ml or more; E78.00 Pure hypercholesterolemia, unspecified; W18.09XA Striking against other object with subsequent fall, initial encounter
CPT/HCPCS: 70450; 71010; 72125; 74176; 76937; 80048; 80053; 80307; 83690; 84484; 85018; 85025; 85027; 85610; 85730; 86850; 86900; 86901; 88305; 88312; 90732; 93005; 96361; 96365; 96372; 96374; 96375; C9113; J1885; J2270; J2354; J2405; J2550; J2765; J3411; J7030; J7040

== ENCOUNTER 2017-06-26 19:02 | Inpatient (IN) | payer MEDICARE, OTHER ==
[~2017-06-26] VITALS: Ht 157.5 cm; Wt 71.7 kg
[~2017-06-26 19:02] MED LIST changes: -FURO1TAB60 PO; -GNP100TA3 PO; +LISI-519 PO; -LISI10TA3 PO; -OMEP20TA PO; +OXYC-392 PO; -PANT40TA3 PO; -POTA20TA5 PO; +PROT40TA PO; +THIA100 PO
[2017-06-26 19:13] VITALS: BP 181/79; PULSE 79; RESP 16; TEMP 98.7; O2SAT 99
[2017-06-26] MEDS ORDERED: SODIUM CHLOR 0.9% 250 ML INJ 250 ML IV ONE (19:30)
[2017-06-26] MEDS ORDERED: ONDANSETRON HCL 4 MG/2 ML VIAL IV PUSH ONE (19:30)
[2017-06-26 19:36] VITALS: PULSE 82; RESP 16; O2SAT 100
--- NOTE | 2017-06-26 20:20 | PD ---
Physical Exam Date Seen by Provider: Jun 26, 2017 Narrative Patient is sent to us for treatment of anemia. She was found to have hemoglobin in the fives as an outpatient. Data Data Last Documented VS Vital Signs Date Time Temp Pulse Resp B/P (MAP) Pulse Ox O2 Delivery O2 Flow Rate FiO2 06/26/17 19:36 82 16 100 Room Air 06/26/17 19:13 98.7 Orders Orders Electrocardiogram (06/26/17:) Complete Blood Count With Diff (06/26/17:) Comprehensive Metabolic Panel (06/26/17:) Prothrombin Time / Inr (Pt) (06/26/17:) Act Partial Throm Time (Ptt) (06/26/17:) Lipase (06/26/17:) Urinalysis - C+S If Indicated (06/26/17:) Magnesium (Mg) (06/26/17:22) Thyroid Stimulating Hormone (06/26/17:) Iv Access Insert/Monitor (06/26/17:) Ecg Monitoring (06/26/17:22) Oximetry (06/26/17:22) Type And Screen (06/26/17:22) Ondansetron Inj (Zofran Inj) (06/26/17 19:30) Red Blood Cells (Rbc) (06/26/17:22) Blood Product Administration (06/26/17:22) Sodium Chlor 0.9% 250 Ml Inj (Ns 250 Ml (06/26/17 19:30) Vascular Access Team Consult/P PRN (06/26/17 19:45) Vascular Poc Ultrasound (06/26/17 ) MDM Supervised Visit with KATERIN: Yes Narrative Course I, Dr. Dickson, have reviewed the advance practice practitioner's documentation and am in agreement, met with the patient face to face, made the diagnosis, and the medical decision making was done by me. *My assessment and Findings: Patient is awake and alert and does not appear to be in any acute distress. She is conversant. See Kary Manuel note for lab and radiology results, final diagnosis and disposition Claudette Dickson MD Jun 26, 2017 20:20
--- NOTE | 2017-06-26 20:22 | PD ---
HPI Chief Complaint: Abnormal Results Time Seen by Provider: 19:13 Travel History International Travel<30 days: No Contact w/Intl Traveler<30days: No Traveled to known affect area: No History of Present Illness HPI 76-year-old female that presents to the ED for evaluation of low hemoglobin. Patient had blood work done today that showed a hemoglobin in the fives. Patient was told to come here for evaluation. [facility]. She has a history of anemia and she states that she's had multiple transfusions in the past. Per patient he last used patient was 7 months ago. She states that they never actually been able to find what her source of anemia and she states that she's had endoscopies as well as colonoscopies with no finding of bleeding. She was told that she might be iron deficient and she been taking iron which she continues to take. She states compliance with this. Per patient she does feel lightheaded and dizzy as well as nauseous as well. Per patient she is having a flare from her pancreatitis that she states that she's had before. She has a history of alcohol abuse and has not used or smoke for a few years. Denies any other medical issues. No chest pain or shortness of breath. Per patient she just feels dizzy and weak. She is somewhat pale. She denies any changes in stool or urine. No blood or bruising. PFSH Past Medical History Cardiovascular Problems: Yes (5 stents) GERD: Yes Hypertension: Yes Myocardial Infarction: Yes Thyroid Disease: Yes (Hypothyroid) ?: Not Past Surgical History Cholecystectomy: Yes Social History Alcohol Use: Yes Tobacco Use: No Substance Use: No Allergies-Medications (Allergen,Severity, Reaction): Coded Allergies: No Known Allergies (Unverified , 06/26/17) Review of Systems Except as stated in HPI: all other systems reviewed are Neg Physical Exam Narrative GENERAL: SKIN: Warm and dry. Pale. HEAD: Atraumatic. Normocephalic. EYES: Pupils equal and round. No scleral icterus. No injection or drainage. ENT: No nasal bleeding or discharge. Mucous membranes pink and moist. Tongue is midline. No uvula deviation. NECK: Trachea midline. No JVD. CARDIOVASCULAR: Regular rate and rhythm. No murmurs, S3, S4. RESPIRATORY: No accessory muscle use. Clear to auscultation. Breath sounds equal bilaterally. GASTROINTESTINAL: Abdomen soft, non-tender, nondistended. Hepatic and splenic margins not palpable. Rectal exam: Done with female nurse present. Patient has an old hemorrhoid noted. No sign of thrombosis. No sign of bleeding. Hemoccult was done and was negative. MUSCULOSKELETAL: Extremities without clubbing, cyanosis, or edema. No obvious deformities. Full range of motion of the upper and lower extremities bilaterally. 2+ pulses bilaterally. NEUROLOGICAL: Awake and alert. No obvious cranial nerve deficits. Motor grossly within normal limits. Five out of 5 muscle strength in the arms and legs. Normal speech. PSYCHIATRIC: Appropriate mood and affect; insight and judgment normal. Data Data Last Documented VS Vital Signs Date Time Temp Pulse Resp B/P (MAP) Pulse Ox O2 Delivery O2 Flow Rate FiO2 06/26/17 19:36 82 16 100 Room Air 06/26/17 19:13 98.7 Orders Orders Electrocardiogram (06/26/17 19:22) Complete Blood Count With Diff (06/26/17 19:22) Comprehensive Metabolic Panel (06/26/17 19:22) Prothrombin Time / Inr (Pt) (06/26/17 19:22) Act Partial Throm Time (Ptt) (06/26/17 19:22) Lipase (06/26/17 19:22) Urinalysis - C+S If Indicated (06/26/17 19:22) Magnesium (Mg) (06/26/17 19:22) Thyroid Stimulating Hormone (06/26/17 19:22) Iv Access Insert/Monitor (06/26/17 19:22) Ecg Monitoring (06/26/17 19:22) Oximetry (06/26/17 19:22) Type And Screen (06/26/17 19:22) Ondansetron Inj (Zofran Inj) (06/26/17 19:30) Red Blood Cells (Rbc) (06/26/17 19:22) Blood Product Administration (06/26/17 19:22) Sodium Chlor 0.9% 250 Ml Inj (Ns 250 Ml (06/26/17 19:30) Vascular Access Team Consult/P PRN (06/26/17 19:45) Vascular Poc Ultrasound (06/26/17 ) Morphine Inj (Morphine Inj) (06/26/17 21:00) Admit To Inpatient (3/22/18 ) Vital Signs (Adult) Q4H (06/26/17 22:16) Activity Oob With Assistance (06/26/17 22:16) Baggagemaster / Telemetry .CONTINUOUS (06/26/17 22:16) Diet Npo (06/27/17 Breakfast) Sodium Chloride 0.9% Flush (Ns Flush) (06/26/17 22:30) Sodium Chloride 0.9% Flush (Ns Flush) (06/27/17 09:00) Basic Metabolic Panel (Bmp) (06/27/17 06:00) Complete Blood Count With Diff (06/27/17 06:00) Pt Request For Service (06/26/17 22:16) Case Management Consult (06/26/17 22:16) Naloxone Inj (Narcan Inj) (06/26/17 22:30) Inpatient Certification (06/26/17 ) Admit Order (Ed Use Only) (06/26/17 22:17) Labs Laboratory Tests Test 06/26/17 20:30 White Blood Count 2.8 TH/MM3 Red Blood Count 1.65 MIL/MM3 Hemoglobin 5.7 GM/DL Hematocrit 17.3 % Mean Corpuscular Volume 104.8 FL Mean Corpuscular Hemoglobin 34.5 PG Mean Corpuscular Hemoglobin Concent 33.0 % Red Cell Distribution Width 16.3 % Platelet Count 121 TH/MM3 Mean Platelet Volume 8.8 FL Neutrophils (%) (Auto) 59.7 % Lymphocytes (%) (Auto) 27.2 % Monocytes (%) (Auto) 7.7 % Eosinophils (%) (Auto) 4.1 % Basophils (%) (Auto) 1.3 % Neutrophils # (Auto) 1.7 TH/MM3 Lymphocytes # (Auto) 0.8 TH/MM3 Monocytes # (Auto) 0.2 TH/MM3 Eosinophils # (Auto) 0.1 TH/MM3 Basophils # (Auto) 0.0 TH/MM3 CBC Comment DIFF FINAL Differential Comment Prothrombin Time 11.5 SEC Prothromb Time International Ratio 1.1 RATIO Activated Partial Thromboplast Time 23.4 SEC Blood Urea Nitrogen 22 MG/DL Creatinine 1.70 MG/DL Random Glucose 82 MG/DL Total Protein 6.8 GM/DL Albumin 2.8 GM/DL Calcium Level 7.7 MG/DL Magnesium Level 2.0 MG/DL Alkaline Phosphatase 92 U/L Aspartate Amino Transf (AST/SGOT) 73 U/L Alanine Aminotransferase (ALT/SGPT) 33 U/L Total Bilirubin 0.4 MG/DL Sodium Level 137 MEQ/L Potassium Level 4.8 MEQ/L Chloride Level 107 MEQ/L Carbon Dioxide Level 20.9 MEQ/L Anion Gap 9 MEQ/L Estimat Glomerular Filtration Rate 29 ML/MIN Lipase 339 U/L Thyroid Stimulating Hormone 3rd Gen 1.970 uIU/ML MDM Medical Decision Making Medical Screen Exam Complete: Yes Emergency Medical Condition: Yes Medical Record Reviewed: Yes Interpretation(s) CBC & BMP Diagram 06/26/17 20:30 Total Protein 6.8, Albumin 2.8 L, Calcium Level 7.7 L, Magnesium Level 2.0, Alkaline Phosphatase 92, Aspartate Amino Transf (AST/SGOT) 73 H, Alanine Aminotransferase (ALT/SGPT) 33, Total Bilirubin 0.4 coags WNL Differential Diagnosis Anemia versus symptomatic anemia versus GI bleed versus electron normality versus pancreatitis Narrative Course 76-year-old female that presents to the ED for evaluation of anemia. Patient was properly examined and was found to have signs and symptoms consistent with symptomatic anemia. [facility] but somehow we have the records of it. Records here showed that she had a hemoglobin of 5.4. She has a history of this. She is symptomatic. This time recommendation is for IV, labs as well as blood transfusion. This was discussed with the patient is in agreement with plan. Patient states that she feels nauseated so she was given Zofran. She was somewhat of a hard access so vascular access was called. Labs showed anemia. Otherwise unremarkable. This time recommendation is for admission for transfusion. Patient agrees with this. Hemoccult here was done and negative. Patient agrees with admission. Case discussed with Dr. Fernandez who agrees to admission. [facility] Point of Care Internal Pos. & Neg. Controls: Passed Fecal Specimen Occult Blood: Negative Diagnosis Primary Impression: Symptomatic anemia Admitting Information Admitting Physician Requests: Admit [place] Jun 26, 2017 20:22
[2017-06-26 20:50] LABS: AUTOMATED NEUTROPHIL # 1.7 TH/MM3 (1.8-7.7); BASOPHIL % 1.3 % (0.0-2.0); EOSINOPHIL # 0.1 TH/MM3 (0-0.4); EOSINOPHIL % 4.1 % (0.0-4.0); LYMPH % 27.2 % (9.0-44.0); LYMPHOCYTE # 0.8 TH/MM3 (1.0-4.8); MEAN CELL VOLUME 104.8 FL (80.0-100.0); MEAN CORPUSCULAR HEMOGLOBIN 34.5 PG (27.0-34.0); MEAN PLATELET VOLUME 8.8 FL (7.0-11.0); MONO % 7.7 % (0.0-8.0); MONOCYTE # 0.2 TH/MM3 (0-0.9); NEUT % 59.7 % (16.0-70.0); PLATELET COUNT 121 TH/MM3 (150-450); RED BLOOD COUNT 1.65 MIL/MM3 (4.00-5.30); RED CELL DISTRIBUTION WIDTH 16.3 % (11.6-17.2); WHITE BLOOD COUNT 2.8 TH/MM3 (4.0-11.0)
[2017-06-26 20:57] LABS: HEMATOCRIT 17.3 % (35.0-46.0); HEMOGLOBIN 5.7 GM/DL (11.6-15.3)
[2017-06-26] MEDS ORDERED: MORPHINE SULFATE 2 MG/ML INJ IV PUSH ONE (21:00)
[2017-06-26 21:06] LABS: INTERNATIONAL NORMALIZED RATIO 1.1 RATIO; PROTHROMBIN TIME - PATIENT 11.5 SEC (9.8-11.6)
[2017-06-26 21:10] LABS: ALT (GPT) 33 U/L (10-53)
[2017-06-26 21:19] LABS: ALBUMIN 2.8 GM/DL (3.4-5.0); ALKALINE PHOSPHATASE 92 U/L (45-117); AST (GOT) 73 U/L (15-37); BICARBONATE 20.9 MEQ/L (21.0-32.0); BLOOD UREA NITROGEN 22 MG/DL (7-18); CALCIUM 7.7 MG/DL (8.5-10.1); CHLORIDE 107 MEQ/L (98-107); GLOMERULAR FILTRATION RATE 29 ML/MIN (>89); GLUCOSE,RANDOM 82 MG/DL (74-106); SODIUM (NA) 137 MEQ/L (136-145); TOTAL BILIRUBIN ADULT 0.4 MG/DL (0.2-1.0); TOTAL PROTEIN 6.8 GM/DL (6.4-8.2)
[2017-06-26] MEDS ORDERED: NALOXONE HCL 0.4 MG/ML AMP IV PUSH PRN (22:30)
[2017-06-26] MEDS ORDERED: SODIUM CHLORIDE 0.9% FLUSH 10 ML FLUSH IV FLUSH PRN (22:30)
[2017-06-26 23:16] VITALS: BP 143/66; PULSE 70; RESP 16; O2SAT 100
[2017-06-26 23:44] VITALS: BP 169/75; PULSE 78; RESP 20; TEMP 98.1; O2SAT 98
[2017-06-26 23:55] VITALS: BP 169/75; PULSE 78; RESP 20; TEMP 98.1; O2SAT 98
[2017-06-27] VITALS (21 sets, daily range): BP systolic 130–178; BP diastolic 68–81; PULSE 60–88; RESP 16–20; TEMP 98–98.4; O2SAT 94–100
[2017-06-27] MEDS ORDERED: IRON18TA (00:15)
[2017-06-27] MEDS ORDERED: ISOS60TA PO (00:15)
[2017-06-27] MEDS ORDERED: OXYC1TAB63 PO (00:15)
[2017-06-27] MEDS ORDERED: MECL12.574 PO (00:15)
[2017-06-27] MEDS ORDERED: ZOFR4TAB PO ×2 (00:15)
[2017-06-27] MEDS ORDERED: PRIL20TA2 PO (00:15)
[2017-06-27] MEDS ORDERED: FURO1TAB62 PO (00:15)
[2017-06-27] MEDS ORDERED: MULTTAB67 PO (00:15)
[2017-06-27] MEDS ORDERED: CARV3.125 PO (00:15)
[2017-06-27] MEDS ORDERED: POTA-163 PO (00:15)
[2017-06-27] MEDS ORDERED: LORA-392 PO (00:17)
[2017-06-27] MEDS ORDERED: CELE10TA PO (00:17)
[2017-06-27] MEDS ORDERED: MELA5 PO (00:17)
[2017-06-27] MEDS ORDERED: oxyCODONE/ACETAMINOPHEN 5 MG/325 MG TAB PO PRN (01:45)
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
[2017-06-27] MEDS: PANTOPRAZOLE SODIUM 40 MG VIAL IV PUSH SCH ×2 (02:29→15:01)
[2017-06-27] MEDS: MORPHINE SULFATE 2 MG/ML INJ IV PUSH PRN ×4 (02:30→21:29)
[2017-06-27 06:45] LABS: AUTOMATED NEUTROPHIL # 1.9 TH/MM3 (1.8-7.7); BASOPHIL % 1.2 % (0.0-2.0); EOSINOPHIL # 0.1 TH/MM3 (0-0.4); EOSINOPHIL % 4.3 % (0.0-4.0); HEMATOCRIT 23.3 % (35.0-46.0); HEMOGLOBIN 7.9 GM/DL (11.6-15.3); LYMPH % 26.9 % (9.0-44.0); LYMPHOCYTE # 0.8 TH/MM3 (1.0-4.8); MEAN CELL VOLUME 96.3 FL (80.0-100.0); MEAN CORPUSCULAR HEMOGLOBIN 32.7 PG (27.0-34.0); MEAN PLATELET VOLUME 7.6 FL (7.0-11.0); MONO % 7.4 % (0.0-8.0); MONOCYTE # 0.2 TH/MM3 (0-0.9); NEUT % 60.2 % (16.0-70.0); PLATELET COUNT 99 TH/MM3 (150-450); RED BLOOD COUNT 2.42 MIL/MM3 (4.00-5.30); WHITE BLOOD COUNT 3.1 TH/MM3 (4.0-11.0)
[2017-06-27 07:03] LABS: BICARBONATE 22.3 MEQ/L (21.0-32.0); CREATININE 1.4 MG/DL (0.50-1.00)
[2017-06-27] MEDS ORDERED: SALI0.653 EACH NARE (07:57)
[2017-06-27] MEDS ORDERED: FLUT1SPR5 EACH NARE (07:57)
[2017-06-27] MEDS ORDERED: CLON0.2T PO (07:57)
[2017-06-27] MEDS ORDERED: AMLO2.5T PO (07:57)
[2017-06-27] MEDS ORDERED: MELA3TAB PO (07:57)
[2017-06-27] MEDS ORDERED: MULTTAB62 PO (07:57)
[2017-06-27] MEDS ORDERED: PANT20 PO (07:57)
[2017-06-27] MEDS ORDERED: FERR325T18 PO (07:57)
[2017-06-27] MEDS ORDERED: LEVO75TA3 PO (07:57)
[2017-06-27] MEDS ORDERED: LORA-474 PO (07:57)
[2017-06-27] MEDS ORDERED: MECL-62 PO (07:57)
[2017-06-27] MEDS ORDERED: ONDA4TAB15 PO (08:01)
[2017-06-27] MEDS: ISOSORBIDE MONONITRATE 60 MG CR TAB (IMDUR) PO SCH (08:32)
[2017-06-27] MEDS: CARVEDILOL 3.125 MG TAB PO SCH ×2 (08:32→20:40)
[2017-06-27] MEDS ORDERED: LORazepam 1 MG TAB PO PRN (08:45)
[2017-06-27] MEDS ORDERED: MELATONIN PO PRN (08:45)
[2017-06-27] MEDS ORDERED: ONDANSETRON HCL 4 MG/2 ML VIAL IV PUSH PRN (08:45)
[2017-06-27] MEDS ORDERED: SODIUM CHLORIDE 0.65% NASAL SPRAY 45 ML BTL EACH NARE PRN (08:45)
[2017-06-27] MEDS ORDERED: MULTIVITAMIN TAB PO SCH (09:00)
[2017-06-27] MEDS: SODIUM CHLORIDE 0.9% FLUSH 10 ML FLUSH IV FLUSH SCH ×2 (09:00→20:40)
[2017-06-27] MEDS: LEVOTHYROXINE SODIUM 75 MCG TAB PO SCH (09:00)
[2017-06-27 09:20] LABS: OVALOCYTES 1+ (NORMAL); TEARDROP RBCS 1+ (NORMAL)
[2017-06-27] MEDS ORDERED: PILL SPLITTER OTHER PRN (09:30)
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
--- NOTE | 2017-06-27 11:24 | HHI.PR ---
Subjective Remarks Follow-up symptomatic anemia/GI bleed/pancytopenia 06/27/17-patient seen and examined, currently nothing by mouth pending EGD. Was transfused 2 units packed red blood cell however H&H still low Objective Vitals Vital Signs Date Time Temp Pulse Resp B/P (MAP) Pulse Ox O2 Delivery O2 Flow Rate FiO2 06/27/17 08:00 78 06/27/17 08:00 98.0 78 18 95 06/27/17 08:00 164/80 (108) 06/27/17 04:40 98.0 68 18 142/68 (92) 94 06/27/17 02:58 98.3 79 20 154/76 100 06/27/17 02:47 152/76 06/27/17 02:37 98.1 79 20 99 06/27/17 00:15 98.0 72 20 172/73 98 06/26/17 23:55 98.1 78 20 169/75 98 06/26/17 23:44 98.1 78 20 169/75 (106) 98 06/26/17 23:16 70 16 143/66 (91) 100 Room Air 06/26/17 19:36 82 16 100 Room Air 06/26/17 19:13 98.7 79 16 181/79 (113) 99 I/O 06/26/17 06/26/17 06/26/17 06/27/17 06/27/17 06/27/17 07:00 15:00 23:00 07:00 15:00 23:00 Intake Total 840 ml Balance 840 ml Intake Oral 0 ml Packed Cells 800 ml Blood Product IV Normal Saline Flush 40 ml # Voids 1 Result Diagram: 06/27/17 0616 06/27/17 0616 Objective Remarks GENERAL: NAD SKIN: Warm and dry. HEAD: Normocephalic. EYES: No scleral icterus. No injection or drainage. NECK: Supple, trachea midline. No JVD or lymphadenopathy. CARDIOVASCULAR: Regular rate and rhythm without murmurs, gallops, or rubs. RESPIRATORY: Breath sounds equal bilaterally. No accessory muscle use. GASTROINTESTINAL: Abdomen soft, non-tender, nondistended. MUSCULOSKELETAL: No cyanosis, or edema. BACK: Nontender without obvious deformity. No CVA tenderness. A/P Problem List: (1) Symptomatic anemia ICD Code: D64.9 - Anemia, unspecified Status: Acute (2) Benign hypertension ICD Code: I10 - Essential (primary) hypertension (3) Pancytopenia ICD Code: D61.818 - Other pancytopenia (4) GI bleed ICD Code: K92.2 - Gastrointestinal hemorrhage, unspecified Assessment and Plan 76-year-old female with GI bleed? Symptomatic anemia Transfused 2 units packed red blood cell however H&H stable low Transfuse 1 unit packed red blood cell now 06/27/17 GI consultation for evaluation for EGD today 06/26/17 Check iron study Continue with PPI IV every 12 hours Serial H&H monitoring History of pancytopenia Continue to monitor Hypertension, CHF Chronic, stable Continue outpatient medications DVT prophylaxis: Chemical anti-prophylaxis is contraindicated, bilateral SCDs Chito Robles MD Jun 27, 2017 11:24
[2017-06-27] MEDS ORDERED: SODIUM CHLOR 0.9% 250 ML INJ 250 ML IV ONE (11:30)
[2017-06-27] MEDS ORDERED: LIDOCAINE HCL 1% PF 5 ML SYRINGE OTHER ONE (12:00)
[2017-06-27] MEDS ORDERED: PROPOFOL 200 MG/20 ML AMP IV ONE (12:00)
--- NOTE | 2017-06-27 12:30 | GIPROC ---
[facility] [address] [facility]. [facility], [address] EGD PROCEDURE REPORT EXAM DATE: 06/27/2017 PATIENT NAME: Ellen Carrillo MR #: [id number] BIRTHDATE: 1940 ATTENDING: Gabi Deras MD ORDER #: [id number] MAXILLOFACIAL PROSTHETICS DENTIST: Christiano Mansfield and Marcelle Elias STATUS: inpatient INDICATIONS: The patient is a 76 yr old female here for an EGD due to anemia reflux PROCEDURE PERFORMED: EGD w/ biopsy MEDICATIONS: None and Per Anesthesia. TOPICAL ANESTHETIC: none CONSENT: The patient understands the risks and benefits of the procedure and understands that these risks include, but are not limited to: sedation, allergic reaction, infection, perforation and/or bleeding. Alternative means of evaluation and treatment include, among others: physical exam, x-rays, and/or surgical intervention. The patient elects to proceed with this endoscopic procedure. medical equipment was checked for proper function. Hand hygiene and appropriate measures for infection prevention was taken. After the risks, benefits and alternatives of the procedure were thoroughly explained, Informed consent was verified, confirmed and timeout was successfully executed by the treatment team. The patient was anesthetized with topical anesthesia and the Pentax [id number] endoscope was introduced through the mouth and advanced to the second portion of the duodenum. Retroflexed views revealed a hiatal hernia The gastroscope was then slowly withdrawn and removed. Gastritis antrum-biopsy esophagitis distal esophagus -biopsy duodenum normal-biopsy portal gastropathy. ADVERSE EVENTS: There were no complications. IMPRESSIONS: 1. Gastritis antrum-biopsy esophagitis distal esophagus -biopsy duodenum normal-biopsy portal gastropathy 2. Retroflexed views revealed a hiatal hernia RECOMMENDATIONS: 1. Await biopsy results. Biopsy results will not be ready for 7-10 days. If you don't hear from us in two weeks, call our office for biopsy results. 2. Anti-reflux regimen 3. Continue PPI 4. Avoid NSAIDS 5. Ct abdomen/pelvis carafate 1 gm po bid hematology consult PATIENT CONDITION: stable DISPOSITION: Inpatient REPEAT EXAM: Return 1 year EGD Gabi Deras MD eSigned: Gabi Deras MD 06/27/2017 12:30 PM cc: PATIENT NAME: Ellen Carrillo MR#: [id number]
[2017-06-27] MEDS: CITALOPRAM HYDROBROMIDE 20 MG TAB PO SCH (15:01)
[2017-06-27] MEDS: MULTIVITAMINS/MINERALS THERAPEUTIC TAB PO SCH (15:01)
[2017-06-27] MEDS: FERROUS SULFATE 325 MG (65 MG ELEMENTAL IRON) TAB PO SCH (15:02)
[2017-06-27] MEDS: amLODIPine BESYLATE 5 MG TAB PO SCH (15:02)
[2017-06-27] MEDS ORDERED: DIATRIZOATE MEGLUM/DIATRIZOATE SOD 9 ML CUP PO ONE (17:00)
[2017-06-27] MEDS: SUCRALFATE 1 GM/10 ML CUP PO SCH ×2 (17:00→21:29)
--- NOTE | 2017-06-27 18:29 | EKG ---
Date Performed: 06/26/2017 Time Performed: 19:40:08 PTAGE: 76 years EKG: Sinus rhythm WITH SINUS ARRHYTHMIA NONSPECIFIC T-WAVE ABNORMALITY BORDERLINE ECG NO PREVIOUS TRACING DOCTOR: Tyson Horta Interpretating Date/Time 06/27/2017 18:27:54
[2017-06-27] MEDS ORDERED: MELATONIN 5 MG TAB PO SCH (21:00)
[2017-06-27 21:08] LABS: BILIRUBIN, URINE NEG (NEG); BLOOD, URINE NEG (NEG); GLUCOSE,URINE NEG (NEG); KETONE, URINE NEG (NEG); NITRITE,URINE NEG (NEG); PH, URINE 5.5 (5.0-8.5); SQUAMOUS EPITHELIAL CELL URINE <1 /hpf (0-5); URINE COLOR YELLOW (YELLW/STRAW); URINE LEUKOCYTE ESTERASE TRACE (NEG)
--- NOTE | 2017-06-27 22:04 | RADRPT ---
EXAM DATE/TIME: 06/27/2017 21:01 [place] COMPARISON: No previous studies available for comparison. INDICATIONS : Abdominal pain, history of pancreatitis. ORAL CONTRAST: Prescribed oral contrast ingested. RADIATION DOSE: 17.53 CTDIvol (mGy) MEDICAL HISTORY : Cardiovascular disease. Hypertension. SURGICAL HISTORY : Cholecystectomy. ENCOUNTER: Initial ACUITY: 1 day PAIN SCALE: LOCATION: abdomen TECHNIQUE: Volumetric scanning of the abdomen and pelvis was performed. Using automated exposure control and ad justment of the mA and/or kV according to patient size, radiation dose was kept as low as reasonably achievable to obtain optimal diagnostic quality images. DICOM format image data is available electro nically for review and comparison. FINDINGS: There is minimal basilar scarring or fibrotic changes in the lungs. No acute findings in the liver, spleen, adrenals, kidneys or pancreas. No evidence for pancreatitis. There is mild constipation. Small amount of free fluid is present in the pelvis. No bowel obstruction . Mild ileus. No free air. Small hiatal hernia. CONCLUSION: 1. Minimal basilar fibrotic changes in the lungs. Small hiatal hernia. Mild ileus. Trace ascites. 2. No definite CT evidence for pancreatitis. Vj Ac MD on June 27, 2017 at 21:58 Board Certified Radiologist. This report was verified electronically.
[2017-06-28] VITALS (10 sets, daily range): BP systolic 137–184; BP diastolic 62–81; PULSE 67–94; RESP 14–18; TEMP 97.2–99.2; O2SAT 94–97
--- NOTE | 2017-06-28 00:38 | MB ---
cc: Shante Ford MD DATE: 06/28/2017 CHIEF COMPLAINT: 1. Anemia. 2. Pancytopenia. HISTORY OF PRESENT ILLNESS: Ms. Carrillo is a 76-year-old lady with a history of pancreatitis, hepatitis C, cirrhosis, hypertension, coronary artery disease, past alcoholism, who was admitted to the hospital on 06/26/2017 after she was found to have severe anemia while at rehab. She was admitted to the hospital from [facility] with complaints of lightheadedness and dizziness. A hemoglobin drawn at the facility revealed that the patient was severely anemic and she presented to the emergency room. Hemoglobin at that time was found to be 5.7. Prior to admission she does note multiple episodes of emesis with blood, as well as diarrhea that is black in color. She reports in the past she has been diagnosed with pancreatitis. She was hospitalized at [facility] in 10/2016. MRCP at that time showed stable mild prominence of the common bile duct, suspected physiologic post-cholecystectomy change. No gross choledocholithiasis seen. At that time, she was also found to have acute pancreatitis. She has previously been evaluated by Dr. Je Bruce, movie critic associated with [facility]. It was felt that her pancytopenia was due to splenomegaly, chronic inflammation, alcohol related bone marrow suppression. Bone marrow biopsy was done in 10/2016, which was found to have pancytopenia with profound thrombocytopenia. No evidence of a microangiopathic process. She has also had multiple prior episodes of GI bleed, including admission for 10/2016 with scopes at that time showing mild antral gastritis with no ulcerations. Colonoscopy from 05/27/2016 with no evidence of bleeding. While inpatient, she has been transfused 3 units of packed red blood cells. She has also been consulted on by the gastroenterology team who planned to perform an EGD. The patient reports that she is feeling much better after transfusion. PAST MEDICAL HISTORY: 1. Pancreatitis. 2. Hepatitis C. 3. Cirrhosis. 4. Hypertension. 5. Coronary artery disease. PAST SURGICAL HISTORY: 1. Cholecystectomy. 2. Coronary angiogram and stent placement. FAMILY HISTORY: The patient reports significant family history of cancer. ALLERGIES: NO KNOWN DRUG ALLERGIES. SOCIAL HISTORY: The patient reports former tobacco abuse and former binge drinking. Denies any current use. REVIEW OF SYSTEMS: GASTROINTESTINAL: Abdominal pain. Remainder of the review of systems as above in the HPI. PHYSICAL EXAMINATION: GENERAL: Well-developed, well-nourished, elderly lady in no distress. HEENT: Head is normocephalic, atraumatic. Eyes: No scleral icterus. CARDIAC: Regular rate and rhythm with no murmurs. RESPIRATORY: Clear to auscultation bilaterally. ABDOMEN: Soft, nontender, nondistended with bowel sounds present. EXTREMITIES: Bilateral lower extremity edema. SKIN: No rash. NEUROLOGIC: Grossly nonfocal. PSYCHIATRIC: Appropriate mood and affect. ASSESSMENT AND PLAN: 1. Severe anemia. 2. Pancytopenia. 3. Gastrointestinal bleed. The patient reports past episodes of bloody emesis as well as black stool leading up to her admission for low hemoglobin. She has been transfused 3 units of packed red blood cells and at this time post-transfusion hemoglobin is pending. She is status post esophagogastroduodenoscopy by the gastroenterology team with report that is not yet in the system. The patient reports that she is uncertain of what they found on the scan. Acute anemia seems to be due to gastrointestinal bleed. Gastroenterology team following. May consider further evaluation including colonoscopy versus camera study in the future. Pancytopenia that has previously had extensive workup by Dr. Bruce. Bone marrow biopsy per report with pancytopenia with profound thrombocytopenia. Thrombocytopenia was felt to be due to decreased production. Multiple factors contributing including known cirrhosis hypersplenism as well as past alcohol effects on the bone marrow. Will have studies performed including LDH, haptoglobin, vitamin B12, folate and iron profile. Will also order peripheral blood smear. The patient has a history of cirrhosis with previous extensive liver workup, she does have hepatitis C. Gastroenterology service is following this. She is currently being treated for an acute pancreatitis. Hematology service will continue to follow. Shante Ford MD ELIGIO/rt , 12:07 AM , 12:36 AM REY
[2017-06-28 01:03] LABS: % SATURATION IRON PROFILE 26.7 % (20-50); IRON (FE) 117 MCG/DL (50-170); TOTAL IRON BINDING CAPACITY 438 MCG/DL (250-450)
[2017-06-28 01:28] LABS: FERRITIN 35 NG/ML (8-252)
[2017-06-28 01:31] LABS: FOLATE GREATER THAN 20.0 NG/ML (3.1-17.5)
[2017-06-28] MEDS: PANTOPRAZOLE SODIUM 40 MG VIAL IV PUSH SCH ×2 (02:48→14:54)
[2017-06-28] MEDS: LEVOTHYROXINE SODIUM 75 MCG TAB PO SCH (06:35)
[2017-06-28] MEDS: SUCRALFATE 1 GM/10 ML CUP PO SCH ×2 (06:37→11:14)
[2017-06-28 08:13] LABS: AUTOMATED NEUTROPHIL # 2.3 TH/MM3 (1.8-7.7); BASOPHIL % 0.8 % (0.0-2.0); EOSINOPHIL # 0.1 TH/MM3 (0-0.4); EOSINOPHIL % 2.7 % (0.0-4.0); HEMATOCRIT 31.3 % (35.0-46.0); HEMOGLOBIN 10.5 GM/DL (11.6-15.3); LYMPH % 17.4 % (9.0-44.0); LYMPHOCYTE # 0.5 TH/MM3 (1.0-4.8); MEAN CELL VOLUME 97.6 FL (80.0-100.0); MEAN CORPUSCULAR HEMOGLOBIN 32.6 PG (27.0-34.0); MEAN CORPUSCULAR HGB CONC 33.4 % (32.0-36.0); MEAN PLATELET VOLUME 8.3 FL (7.0-11.0); MONO % 5.3 % (0.0-8.0); MONOCYTE # 0.2 TH/MM3 (0-0.9); NEUT % 73.8 % (16.0-70.0); PLATELET COUNT 94 TH/MM3 (150-450); RED BLOOD COUNT 3.21 MIL/MM3 (4.00-5.30); RED CELL DISTRIBUTION WIDTH 19.3 % (11.6-17.2); WHITE BLOOD COUNT 3.1 TH/MM3 (4.0-11.0)
[2017-06-28 08:15] LABS: BICARBONATE 21.3 MEQ/L (21.0-32.0); BLOOD UREA NITROGEN 15 MG/DL (7-18); CALCIUM 8.5 MG/DL (8.5-10.1); CHLORIDE 109 MEQ/L (98-107); CREATININE 1.32 MG/DL (0.50-1.00); GLOMERULAR FILTRATION RATE 39 ML/MIN (>89); GLUCOSE,RANDOM 112 MG/DL (74-106); IRON (FE) 29 MCG/DL (50-170); SODIUM (NA) 140 MEQ/L (136-145)
[2017-06-28 08:30] LABS: % SATURATION IRON PROFILE 6.5 % (20-50); TOTAL IRON BINDING CAPACITY 447 MCG/DL (250-450)
[2017-06-28] MEDS ORDERED: POTASSIUM CHLORIDE 20 MEQ CONTROLLED RELEASE TAB PO SCH (09:00)
[2017-06-28] MEDS ORDERED: FUROSEMIDE 20 MG TAB PO SCH (09:00)
[2017-06-28] MEDS: amLODIPine BESYLATE 5 MG TAB PO SCH (09:06)
[2017-06-28] MEDS: CARVEDILOL 3.125 MG TAB PO SCH (09:06)
[2017-06-28] MEDS: MULTIVITAMINS/MINERALS THERAPEUTIC TAB PO SCH (09:06)
[2017-06-28] MEDS: CITALOPRAM HYDROBROMIDE 20 MG TAB PO SCH (09:06)
[2017-06-28] MEDS: MORPHINE SULFATE 2 MG/ML INJ IV PUSH PRN (09:06)
[2017-06-28] MEDS: ISOSORBIDE MONONITRATE 60 MG CR TAB (IMDUR) PO SCH (09:06)
[2017-06-28] MEDS: SODIUM CHLORIDE 0.9% FLUSH 10 ML FLUSH IV FLUSH SCH (09:07)
[2017-06-28] MEDS: FERROUS SULFATE 325 MG (65 MG ELEMENTAL IRON) TAB PO SCH (09:07)
[2017-06-28 10:21] LABS: ACANTHOCYTES OCC (NORMAL); OVALOCYTES 1+ (NORMAL); TEARDROP RBCS 1+ (NORMAL)
--- NOTE | 2017-06-28 11:03 | HHI.DS ---
Discharge Summary Admission Date Jun 26, 2017 at 22:18 Discharge Date: Jun 28, 2017 Admitting Diagnosis symptomatic anemia (1) Symptomatic anemia ICD Code: D64.9 - Anemia, unspecified Status: Acute (2) Benign hypertension ICD Code: I10 - Essential (primary) hypertension (3) Pancytopenia ICD Code: D61.818 - Other pancytopenia (4) GI bleed ICD Code: K92.2 - Gastrointestinal hemorrhage, unspecified Procedures EGD Brief History - From Admission HPI from the admitting physician History from patient, [facility] communication, interview of medical records. Patient reported that she was feeling extremely lightheaded for the past few days. She states today, she was so weak that she just could not put her head up any longer. She was therefore sent to the hospital from [facility] after the blood work done there reveals significant anemia. Patient denies any chest pains. However she was extremely short of breath. Denies any falls or syncope. She states that she was just extremely lightheaded that she was just about to pass out for most part. Patient states that about 2 weeks ago at the [facility], she has had 1 day of constant nausea and vomiting nonstop for about 6 hours. She reports that her vomitus was coffee-ground in color at that time. She also had diarrhea that day which was black in color. She is also on iron pills at the nursing facility. She was not sent to hospital at that time. In the emergency room, patient had guaiac done by ER ADIEL and this was negative. Patient reports that she has had similar episodes with anemia requiring 5 units of blood transfusion about 8 months ago. At that time, she has had endoscopies and colonoscopies done and was told that it was negative. She does not think that she ever capsule endoscopy. She states she sees a GI doctor for this and she believes it is that this off a curb. She was also told that she has pancreatitis. She has never seen a engineer intern for her anemia. CBC/BMP: 06/28/17 0720 06/28/17 0720 Significant Findings Laboratory Tests Test 06/26/17 20:30 06/27/17 06:16 06/27/17 18:15 06/27/17 20:20 White Blood Count 2.8 TH/MM3 (4.0-11.0) 3.1 TH/MM3 (4.0-11.0) Red Blood Count 1.65 MIL/MM3 (4.00-5.30) 2.42 MIL/MM3 (4.00-5.30) Hemoglobin 5.7 GM/DL (11.6-15.3) 7.9 GM/DL (11.6-15.3) Hematocrit 17.3 % (35.0-46.0) 23.3 % (35.0-46.0) Mean Corpuscular Volume 104.8 FL (80.0-100.0) Mean Corpuscular Hemoglobin 34.5 PG (27.0-34.0) Platelet Count 121 TH/MM3 (150-450) 99 TH/MM3 (150-450) Eosinophils (%) (Auto) 4.1 % (0.0-4.0) 4.3 % (0.0-4.0) Neutrophils # (Auto) 1.7 TH/MM3 (1.8-7.7) Lymphocytes # (Auto) 0.8 TH/MM3 (1.0-4.8) 0.8 TH/MM3 (1.0-4.8) Activated Partial Thromboplast Time 23.4 SEC (24.3-30.1) Blood Urea Nitrogen 22 MG/DL (7-18) Creatinine 1.70 MG/DL (0.50-1.00) 1.40 MG/DL (0.50-1.00) Albumin 2.8 GM/DL (3.4-5.0) Calcium Level 7.7 MG/DL (8.5-10.1) 8.0 MG/DL (8.5-10.1) Aspartate Amino Transf (AST/SGOT) 73 U/L (15-37) Carbon Dioxide Level 20.9 MEQ/L (21.0-32.0) Estimat Glomerular Filtration Rate 29 ML/MIN (>89) 37 ML/MIN (>89) Red Cell Distribution Width 20.0 % (11.6-17.2) Platelet Estimate LOW (NORMAL) Tear Drop Cells 1+ (NORMAL) Ovalocytes 1+ (NORMAL) Chloride Level 110 MEQ/L (98-107) Vitamin B12 Level GREATER THAN 2000 PG/ML Folate GREATER THAN 20.0 NG/ML Hepatitis C IgG Antibody REACTIVE (NONREACTIVE) Urine Leukocyte Esterase TRACE (NEG) Test 06/28/17 07:20 White Blood Count 3.1 TH/MM3 (4.0-11.0) Red Blood Count 3.21 MIL/MM3 (4.00-5.30) Hemoglobin 10.5 GM/DL (11.6-15.3) Hematocrit 31.3 % (35.0-46.0) Red Cell Distribution Width 19.3 % (11.6-17.2) Platelet Count 94 TH/MM3 (150-450) Neutrophils (%) (Auto) 73.8 % (16.0-70.0) Lymphocytes # (Auto) 0.5 TH/MM3 (1.0-4.8) Tear Drop Cells 1+ (NORMAL) Ovalocytes 1+ (NORMAL) Acanthocytes OCC (NORMAL) Creatinine 1.32 MG/DL (0.50-1.00) Random Glucose 112 MG/DL (74-106) Chloride Level 109 MEQ/L (98-107) Estimat Glomerular Filtration Rate 39 ML/MIN (>89) Iron Level 29 MCG/DL (50-170) Percent Iron Saturation 6.5 % (20-50) Imaging Last Impressions Abdomen/Pelvis CT 06/27/17 0000 Signed Impressions: Service Date/Time: Tuesday, June 27, 2017 21:01 - CONCLUSION: 1. Minimal basilar fibrotic changes in the lungs. Small hiatal hernia. Mild ileus. Trace ascites. 2. No definite CT evidence for pancreatitis. Vj Ac MD PE at Discharge GENERAL: NAD SKIN: Warm and dry. HEAD: Normocephalic. EYES: No scleral icterus. No injection or drainage. NECK: Supple, trachea midline. No JVD or lymphadenopathy. CARDIOVASCULAR: Regular rate and rhythm without murmurs, gallops, or rubs. RESPIRATORY: Breath sounds equal bilaterally. No accessory muscle use. GASTROINTESTINAL: Abdomen soft, non-tender, nondistended. MUSCULOSKELETAL: No cyanosis, or edema. BACK: Nontender without obvious deformity. No CVA tenderness. Pt update on day of discharge Patient reports she is feeling 100 times better. She is feeling much stronger. Happy about returning back to SNF for rehabilitation. Hospital Course 76-year-old female admitted with symptomatic anemia. Patient was transfused a total of 3 units of PRBC. Hemoglobin significantly improved and stabilized. Patient underwent EGD with biopsy. EGD revealed gastritis but no active site of bleeding. Patient was evaluated by hematology and workup started. Apparently she has had chronic anemia and required transfusion in the past. It is suggested her problem may be due to RBC production issues. She will continue with PPI. The patient stabilized and is discharged to SNF to continue rehabilitation. She will follow-up outpatient with hematology and gastroenterology. Pt Condition on Discharge: Good Discharge Disposition: Discharge to SNF Discharge Time: > 30 minutes Discharge Instructions DIET: Follow Instructions for: Heart Healthy Diet Activities you can perform: Regular-No Restrictions Follow up Referrals: Gastroenterology - 2 Weeks with Gabi Deras MD Hematology - 2 Weeks New Medications: Hydrocodone/Acetaminophen (Hydrocodone-Acetamin 5-325 mg) 5 Mg-325 Mg Tablet 1 TAB PO Q4H PRN for PAIN GREATER THAN 5, #15 Continued Medications: Amlodipine (Amlodipine) 2.5 Mg Tab 2.5 MG PO DAILY for Blood Pressure Management, #30 TAB 0 Refills Carvedilol (Coreg) 3.125 Mg Tab 3.125 MG PO BID, #60 TAB 0 Refills Citalopram (Celexa) 10 Mg Tab 10 MG PO DAILY for Control Depression, #30 TAB 0 Refills Clonidine (Clonidine) 0.2 Mg Tab 0.2 MG PO BID PRN for SBP>160, DBP>90, #60 TAB 0 Refills Ferrous Sulfate (Ferrous Sulfate) 325 Mg (65 Mg Iron) Tablet 325 MG PO DAILY for Nutritional Supplement, #30 TAB 0 Refills Fluticasone Nasal [place] (Flonase Nasal [place]) 50 Mcg/Act [place] 50 MCG EACH NARE HS PRN for ALLERGIES, #1 BOTTLE 0 Refills Furosemide (Lasix) 20 Mg Tab 20 MG PO DAILY, #30 TAB 0 Refills Isosorbide Mononitrate ER (Isosorbide Mononitrate ER) 60 Mg Tab 60 MG PO DAILY for Prevent Chest Pain, #30 TAB 0 Refills Levothyroxine (Levothyroxine) 75 Mcg Tab 75 MCG PO DAILY for Thyroid, #30 TAB 0 Refills Lorazepam (Ativan) 1 Mg Tab 1 MG PO HS PRN for ANXIETY AND/OR AGITATION, TAB 0 Refills Meclizine (Meclizine) 25 Mg Tab 25 MG PO Q6HR PRN for NAUSEA OR VOMITING, TAB 0 Refills Melatonin (Melatonin) 3 Mg Tab 2 TAB PO HS PRN for INSOMNIA Multiple Vitamins W/ Minerals (Multi-Vitamin/Minerals) 1 Tab Tab 1 TAB PO DAILY for Nutritional Supplement Omeprazole Magnesium (Prilosec) 20 Mg Tab 40 MG PO BID Ondansetron (Zofran) 4 Mg Tab 4 MG PO Q6HR PRN for NAUSEA OR VOMITING, TAB 0 Refills Ondansetron (Ondansetron) 4 Mg Tab 1 TAB PO Q8HR PRN for NAUSEA OR VOMITING Potassium Chloride ER (Potassium Chloride ER) 20 Meq Tab 20 MEQ PO DAILY for Electrolyte Replacement, #30 TAB 0 Refills Saline Nasal [place] (Saline Nasal [place]) 0.65% [place] 2 SPRAY EACH NARE DIRECTED PRN for NASAL CONGESTION, #1 BOTTLE 0 Refills Discontinued Medications: Pantoprazole (Protonix) 20 Mg Tab 20 MG PO BID for Reflux, #30 TAB 0 Refills Edith Barajas MD Jun 28, 2017 11:03
[2017-06-28] MEDS: ACETAMINOPHEN/HYDROcodone 325 MG/5 MG TAB PO PRN ×2 (11:14→14:56)
[2017-06-28] MEDS ORDERED: OXYC1TAB63 PO ×2 (13:39→13:50)
[2017-06-28] MEDS ORDERED: HYDR-3516 PO (13:52)
--- NOTE | 2017-06-28 17:15 | PD.ONC.PN ---
Subjective Subjective Remarks Afebrile overnight Patient excited to go home Reports she feels much improved No other acute complaints Objective Data Date Time Temp Pulse Resp B/P (MAP) Pulse Ox O2 Delivery O2 Flow Rate FiO2 06/28/17 11:50 98.2 77 18 170/81 (110) 97 06/28/17 09:15 97.2 94 18 184/78 (113) 97 06/28/17 06:00 72 06/28/17 05:00 68 06/28/17 04:20 99.2 69 16 144/66 (92) 94 06/28/17 04:00 74 06/28/17 03:00 70 06/28/17 02:00 70 06/28/17 01:00 70 06/28/17 00:00 67 06/28/17 00:00 97.9 67 14 137/62 (87) 96 06/27/17 23:00 72 06/27/17 22:00 72 06/27/17 21:00 76 06/27/17 20:28 178/81 (113) 06/27/17 20:00 68 06/27/17 20:00 98.3 72 16 97 06/27/17 19:00 68 06/27/17 19:00 66 06/27/17 18:00 64 06/27/17 18:00 98.4 63 20 130/70 97 Result Diagram: 06/28/17 0720 06/28/17 0720 Laboratory Results Laboratory Tests Test 06/27/17 18:15 06/27/17 20:20 06/28/17 07:20 Hepatitis A IgM Antibody NONREACTIVE Hepatitis B Surface Antigen NONREACTIVE Hepatitis B Core IgM Antibody NONREACTIVE Hepatitis C IgG Antibody REACTIVE Urine Color YELLOW Urine Turbidity CLEAR Urine pH 5.5 Urine Specific [place] 1.011 Urine Protein NEG mg/dL Urine Glucose (UA) NEG mg/dL Urine Ketones NEG mg/dL Urine Occult Blood NEG Urine Nitrite NEG Urine Bilirubin NEG Urine Urobilinogen LESS THAN 2.0 MG/DL Urine Leukocyte Esterase TRACE Urine RBC LESS THAN 1 /hpf Urine WBC 2 /hpf Urine Squamous Epithelial Cells <1 /hpf Microscopic Urinalysis Comment CULT NOT INDICATED White Blood Count 3.1 TH/MM3 Red Blood Count 3.21 MIL/MM3 Hemoglobin 10.5 GM/DL Hematocrit 31.3 % Mean Corpuscular Volume 97.6 FL Mean Corpuscular Hemoglobin 32.6 PG Mean Corpuscular Hemoglobin Concent 33.4 % Red Cell Distribution Width 19.3 % Platelet Count 94 TH/MM3 Mean Platelet Volume 8.3 FL Neutrophils (%) (Auto) 73.8 % Lymphocytes (%) (Auto) 17.4 % Monocytes (%) (Auto) 5.3 % Eosinophils (%) (Auto) 2.7 % Basophils (%) (Auto) 0.8 % Neutrophils # (Auto) 2.3 TH/MM3 Lymphocytes # (Auto) 0.5 TH/MM3 Monocytes # (Auto) 0.2 TH/MM3 Eosinophils # (Auto) 0.1 TH/MM3 Basophils # (Auto) 0.0 TH/MM3 CBC Comment AUTO DIFF Differential Comment AUTO DIFF CONFIRMED Tear Drop Cells 1+ Ovalocytes 1+ Acanthocytes OCC Blood Urea Nitrogen 15 MG/DL Creatinine 1.32 MG/DL Random Glucose 112 MG/DL Calcium Level 8.5 MG/DL Sodium Level 140 MEQ/L Potassium Level 4.0 MEQ/L Chloride Level 109 MEQ/L Carbon Dioxide Level 21.3 MEQ/L Anion Gap 10 MEQ/L Estimat Glomerular Filtration Rate 39 ML/MIN Iron Level 29 MCG/DL Total Iron Binding Capacity 447 MCG/DL Percent Iron Saturation 6.5 % Objective Remarks GENERAL: Older female resting in bed in no obvious distress SKIN: Warm and dry. HEAD: Normocephalic. Many missing teeth EYES: No injection or drainage. NECK: Supple, trachea midline. CARDIOVASCULAR: Regular rate and rhythm without murmurs. RESPIRATORY: Breath sounds equal bilaterally. No accessory muscle use. GASTROINTESTINAL: Abdomen soft, non-tender, nondistended. EXTREMITIES: No cyanosis, or edema. MUSCULOSKELETAL: Adequate muscle tone. NEUROLOGICAL: No obvious focal deficit. Awake, alert, and oriented x3. Assessment/Plan Problem List: (1) Symptomatic anemia ICD Codes: D64.9 - Anemia, unspecified Status: Acute Plan: --Status post 3 units packed red blood cells --Patient feeling much improved --Would likely benefit from iron supplement --Recent scope shows no source of bleeding Assessment 76-year-old female with symptomatic anemia with possible recent GI bleed Plan 1. Clear for discharge from oncology standpoint 2. Patient to follow-up with Dr. Bruce on outpatient basis 3. Supportive care Noemi Castro Jun 28, 2017 17:15
[2017-07-03 07:51] LABS: HCV RNA PCR IU/ML 3960000 IU/mL (Not Detected)
== END 2017-06-28 15:44 | DRG 378 ==
LOC: NEPE 19:02 → MERGE 22:18 → NEDA 22:18 → HCIN 23:36
PROVIDERS: ADMIT Family Medicine; ATTEND Family Medicine
PROC: 30233N1 Transfusion of Nonautologous Red Blood Cells into Peripheral Vein, Percutaneous Approach (ICD-10-PCS; 2017-06-26)
PROC: 0DB78ZX Excision of Stomach, Pylorus, Via Natural or Artificial Opening Endoscopic, Diagnostic (ICD-10-PCS; 2017-06-27)
PROC: 0DB38ZX Excision of Lower Esophagus, Via Natural or Artificial Opening Endoscopic, Diagnostic (ICD-10-PCS; 2017-06-27)
PROC: 0DB98ZX Excision of Duodenum, Via Natural or Artificial Opening Endoscopic, Diagnostic (ICD-10-PCS; principal; 2017-06-27 12:06)
DX: K92.2 Gastrointestinal hemorrhage, unspecified (principal); D61.818 Other pancytopenia; K86.1 Other chronic pancreatitis; I50.9 Heart failure, unspecified; I11.0 Hypertensive heart disease with heart failure; K74.60 Unspecified cirrhosis of liver; D64.9 Anemia, unspecified; F10.21 Alcohol dependence, in remission; B19.20 Unspecified viral hepatitis C without hepatic coma; K92.0 Hematemesis; K21.9 Gastro-esophageal reflux disease without esophagitis; E03.9 Hypothyroidism, unspecified; E07.9 Disorder of thyroid, unspecified; R19.7 Diarrhea, unspecified; K44.9 Diaphragmatic hernia without obstruction or gangrene; I25.10 Atherosclerotic heart disease of native coronary artery without angina pectoris; I25.2 Old myocardial infarction; Z87.891 Personal history of nicotine dependence; Z95.5 Presence of coronary angioplasty implant and graft
CPT/HCPCS: 36430; 74176; 76937; 80048; 80053; 80074; 81001; 82607; 82728; 82746; 83010; 83540; 83550; 83615; 83690; 83735; 84443; 85025; 85610; 85730; 86850; 86900; 86901; 86920; 87522; 87902; 88305; 88312; 93005; 96374; 96375; C9113; J2270; J2405; J7050; P9016; Q9963